=== PATIENT | female | born 1950 | race Caucasian/White ===

== ENCOUNTER → 2017-08-07 13:28 | Outpatient (CLI) | payer MEDICARE, SELFPAY ==
--- NOTE | 2017-08-07 13:32 | CT_ITS ---
STUDY: CTA OF THE ABDOMINAL AORTA AND BILATERAL LOWER EXTREMITIES REASON FOR EXAM: Female, 66 years old. Claudication RADIATION DOSAGE (If Supplied By Facility): CTDIvol = ( 5.68 ) mGy, DLP = ( 1641.87 ) mGycm TECHNIQUE: Axial CT angiography multi-detector data acquisition was obtained from the lower chest to the feet following intravenous administration of 100 ml of Isovue 370 contrast. Axial images and MIP images were reconstructed from the axial data set. Post-processing of the angiographic images was performed, with multiplanar reformation and 3D reconstruction. Individualized dose optimization techniques were used for this CT. TECHNICAL QUALITY: Fair COMPARISON: None. Descriptors of Narrowing: None (0%) Mild (< 50%) Moderate (50-70%) Severe (70-90%) Subtotal/Total Occlusion (90-100%) Non-Evaluable (technically non-diagnostic FINDINGS: Abdominal aorta: There are marked vascular calcifications scattered in the abdominal aorta without dilatation or narrowing. Celiac and superior mesenteric arteries: There is moderate calcified plaque at the origin of the celiac artery with mild narrowing. There is minimal calcified plaque at the origin of the superior mesenteric artery without narrowing. Inferior mesenteric artery: There are marked calcifications at the origin of the inferior mesenteric artery. The vessel is patent. Right renal artery(arteries): There is a single renal artery on the right. There are moderate calcifications at the origin without significant narrowing. Left renal artery(arteries): There is a single renal artery on the left. There are minimal calcifications at the origin without narrowing. Right common iliac artery: There are marked calcifications in the vessel. There is a stent at the origin which is occluded. The vessel reconstitutes distally by the internal iliac artery. Right external iliac artery: Minimally calcified and small but patent. Right internal iliac artery: Moderately calcified but patent. Left common iliac artery: There are marked calcifications at the origin of the vessel and moderate calcifications distally. The vessel is patent. Left external iliac artery: Minimally calcified without narrowing. Left internal iliac artery: Moderately calcified but patent. RIGHT LOWER EXTREMITY Right common femoral artery: Minimally calcified without narrowing. Right profundus femoris: No demonstrated narrowing. Right superficial femoral: Scattered mild calcifications without narrowing. Right popliteal artery: No demonstrated narrowing. Right tibioperoneal trunk: No demonstrated narrowing. Right anterior tibial artery: No demonstrated narrowing. Right posterior tibial artery: No demonstrated narrowing. Right peroneal artery: No demonstrated narrowing. LEFT LOWER EXTREMITY Left common femoral artery: Minimally calcified without narrowing. Left profundus femoris: No demonstrated narrowing. Left superficial femoral: Scattered mild calcifications without narrowing. Left popliteal artery: No demonstrated narrowing. Left tibioperoneal trunk: No demonstrated narrowing. Left anterior tibial artery: No demonstrated narrowing. Left posterior tibial artery: No demonstrated narrowing. Left peroneal artery: No demonstrated narrowing. There is minimal atelectasis in the lung bases. There are mild chronic changes in the lung bases. There is no pleural effusion. Sternotomy wires are present. There appear to be dense calcifications in the mitral valve. The visualized heart is normal in size. The liver, gallbladder, spleen, pancreas and adrenal glands are normal in appearance. There are cysts in both kidneys, with the largest measuring 3 cm off the lower pole of the left kidney. There is diverticulosis of the colon, most pronounced distally. There are no acute bowel abnormalities. There is no ascites or significant lymphadenopathy. There is a small umbilical hernia containing fat. The bladder is decompressed. The uterus is surgically absent. There are no abnormal masses in the adnexal regions. There are moderate degenerative changes scattered in the spine. CT/CT ANGIO ABD&PEL W/O&W/DYE IMPRESSION: There appears to be a stent in the origin of the right common iliac artery which is occluded. The vessel reconstitutes distally by the internal iliac artery. There are marked vascular calcifications throughout the abdominal aorta, branch vessels and pelvic arteries. Other than the occlusion of the right common iliac artery, there is no significant narrowing or occlusion of the remaining vessels in the abdomen or pelvis. There is only mild disease in the superficial femoral arteries without narrowing. The popliteal arteries are patent without disease. There are three-vessel runoffs bilaterally. Electronically Signed: Rhonda Flores MD at 22:30 EDT Tel Direct: [phone], Service support ,
== END ==
PROVIDERS: Family Provider Preventive Medicine Occupational Medicine; PCP Preventive Medicine Occupational Medicine; Visit Provider Surgery Vascular Surgery
DX: I70.213 Atherosclerosis of native arteries of extremities with intermittent claudication, bilateral legs (principal); I77.1 Stricture of artery
CPT/HCPCS: 74174; 75635; Q9967

== ENCOUNTER → 2018-01-31 08:59 | Outpatient (CLI) | payer MEDICARE, OTHER, SELFPAY ==
--- NOTE | 2018-01-31 09:07 | AAVD_ITS ---
Reason For Study: Aortic atheroclerosis Aorta Measurements Aorta Doppler Measurements Proximal aorta measures1.58 x 1.49cm. in cross- Peak systolic flow velocities within the proximal sectional axis. aorta measure 99.4 cm/sec. Proximal aorta measures1.58cm. in longitudinal Peak systolic flow velocities within the mid axis. aorta measure 130 cm/sec. Mid aorta measures1.21 x 1.26cm. in cross- Peak systolic flow velocities within the distal sectional axis. aorta measure 126 cm/sec. Mid aorta measures1.21cm. in longitudinal axis. Distal aorta measures1.36 x 1.31cm. in cross- sectional axis. Distal aorta measures1.31cm. in longitudinal axis. Procedure Aorta IVC Iliac vasculature or bypass grafts [id number]. Rt and Lt Iliac arteries not visualized due to patient body habitus and bowel gas. Exam performed in department. Interpretation Summary 1. No aorta stenosis or aneurysm. 2. Iliac arteries unable to be visualized. Ordering Physician: Scooter Mckenna Referring Physician: MD Paulie Hernandez Performed By: Ines Mayorga RVT and Student
--- NOTE | 2018-01-31 09:13 | ADUL_ITS ---
Reason For Study: Atherosclerosis Left Velocities Ext Iliac Artery, dist = 217 cm./sec. Common Femoral Artery, mid = 185 cm./sec. Supf. Femoral Artery, prox = 184 cm./sec. Supf. Femoral Artery, mid = 99.2 cm./sec. Supf. Femoral Artery, dist = 60.4 cm./sec. Profunda Femoral Artery = 187 cm./sec. Popliteal Artery, proximal, = 70.4 cm./sec. Popliteal Artery, mid = 73.3 cm./sec. Popliteal Artery, distal = 72.7 cm./sec. Post. Tibial Artery, prox = 80.3 cm./sec. Post Tibial Artery, mid = 79.7 cm./sec. Post Tibial Artery, dist. = 82.1. cm./sec. Peroneal Artery, prox = 40 cm./sec. Peroneal Artery, mid = 45.9 cm./sec. Peroneal Artery,dist. = 41.4 cm./sec. Ant.Tibial Artery, prox = 123 cm./sec. Ant Tibial Artery, mid = 56.9 cm./sec. Ant. Tibial Artery, distal = 73.3 cm./sec. Procedure Exam performed in department. Interpretation Summary 1. Mils stenosis in proximal SFA and profunda, but triphasic flow maintained throughout. Ordering Physician: Scooter Mckenna Referring Physician: MD Paulie Hernandez Performed By: Ines Mayorga RVT and Student
--- NOTE | 2018-02-06 11:58 | LEAS ---
Arterial Study - Arterial Study Arterial Study: Date of scan 01/31/[address] Mckenna Interpretation: Right lower extremity with triphasic flow noted at the ankle with an CLARENCE 0.71 of the PT 0.6 for the DP. Digit brachial index 0.47. Left lower extremity with triphasic flow noted at the ankle on duplex with an CLARENCE 0.82 the PT 0.81 in the DP. Digit brachial index 0.25. Impression: 1. Mild arterial occlusive disease in the right leg with triphasic flow CLARENCE 0.71 2. Left lower extremity mild arterial occlusive disease with an CLARENCE 0.82 and triphasic flow. Bilateral small vessel disease with digit brachial index 0.47 and 0.25
== END ==
PROVIDERS: Family Provider Preventive Medicine Occupational Medicine; PCP Preventive Medicine Occupational Medicine; Referring Provider Surgery Vascular Surgery; Visit Provider Surgery Vascular Surgery
DX: I70.0 Atherosclerosis of aorta (principal); I77.1 Stricture of artery; I70.213 Atherosclerosis of native arteries of extremities with intermittent claudication, bilateral legs
CPT/HCPCS: 93922; 93926; 93978

== ENCOUNTER → 2018-05-17 12:06 | Outpatient (CLI) | payer MEDICARE, OTHER, SELFPAY ==
[2018-05-17 12:45] LABS: Hematocrit 34.2 % (37-47); Hemoglobin 10.4 g/dl (12.0-15.0); Mean Corp Hgb Conc 30.4 g/gl (32-36); Mean Corpuscular Hgb 26.1 pg (27.0-32.0); Mean Corpuscular Volume 85.9 fL (81-99); Platelet Count 191 K/mm3 (150-450); RBC Distribution Width CV 15.9 % (11.6-14.6); RBC Distribution Width SD 50.4 fl (35.1-43.9); Red Blood Count 3.98 M/mm3 (4.2-5.4); Scan Indicated on CBC? Y/N NO; White Blood Count 5.2 K/mm3 (4.4-11.0)
[2018-05-17 13:17] LABS: BNP,B-Type NATRIURETIC PEPTIDE 100.5 pg/mL (0-100)
[2018-05-17 13:18] LABS: Anion Gap 11 (5-15); BUN 71 mg/dL (7-18); Chloride 100 mmol/L (98-107); Creatinine, Serum 1.97 mg/dL (0.55-1.02); EST Glomerular Filtration Rate 27 mL/min (>60); Est Glom Filt Rate - Afr Amer 32 mL/min (>60); Glucose 117 mg/dL (74-106); Potassium 4.5 mmol/L (3.5-5.1); Sodium Level 139 mmol/L (136-145); Thyroid Stim Hormone (TSH) 5.28 uIU/mL (0.358-3.74)
== END ==
PROVIDERS: Family Provider Preventive Medicine Occupational Medicine; PCP Preventive Medicine Occupational Medicine
DX: R53.82 Chronic fatigue, unspecified (principal); Z95.3 Presence of xenogenic heart valve; I51.9 Heart disease, unspecified; R06.00 Dyspnea, unspecified
CPT/HCPCS: 36415; 80048; 83880; 84443; 85027

== ENCOUNTER → 2018-05-31 12:07 | Outpatient (CLI) | payer MEDICARE, OTHER, SELFPAY ==
[2018-05-31 13:12] LABS: EST Glomerular Filtration Rate 30 mL/min (>60); Est Glom Filt Rate - Afr Amer 36 mL/min (>60)
== END ==
PROVIDERS: Family Provider Preventive Medicine Occupational Medicine; PCP Preventive Medicine Occupational Medicine; Referring Provider Surgery Vascular Surgery; Visit Provider Surgery Vascular Surgery
DX: I70.213 Atherosclerosis of native arteries of extremities with intermittent claudication, bilateral legs (principal); I77.1 Stricture of artery
CPT/HCPCS: 36415; 82565

== ENCOUNTER 2018-06-26 08:56 | Day surgery (SDC) | payer MEDICARE, OTHER, SELFPAY ==
[2018-06-25 06:53] VITALS: BMI 40.8
[2018-06-26 09:24] LABS: Hematocrit 36.7 % (37-47); Hemoglobin 11.3 g/dl (12.0-15.0); Mean Corp Hgb Conc 30.8 g/gl (32-36); Mean Corpuscular Hgb 26.8 pg (27.0-32.0); Mean Corpuscular Volume 87.2 fL (81-99); Mean Platelet Vol. 10.4 fl (6.2-12.0); Platelet Count 206 K/mm3 (150-450); RBC Distribution Width CV 16.3 % (11.6-14.6); RBC Distribution Width SD 51.8 fl (35.1-43.9); Red Blood Count 4.21 M/mm3 (4.2-5.4); White Blood Count 5.4 K/mm3 (4.4-11.0)
[2018-06-26 09:25] LABS: Scan Indicated on CBC? Y/N NO
[2018-06-26 09:28] LABS: Albumin, Serum 3.6 g/dL (3.2-5.0); BUN 39 mg/dL (7-18); BUN/Creat Ratio 27.7 RATIO (10-20); Calcium,Total 8.7 mg/dL (8.5-10.1); Chloride 106 mmol/L (98-107); Creatinine, Serum 1.41 mg/dL (0.55-1.02); EST Glomerular Filtration Rate 39 mL/min (>60); Est Glom Filt Rate - Afr Amer 48 mL/min (>60); Estimated Creatinine Clearance 32.52 ml/min; Glucose 139 mg/dL (74-106); Phosphorus 3.6 mg/dL (2.5-4.9); Sodium Level 141 mmol/L (136-145)
--- NOTE | 2018-06-26 11:19 | OP.PCM_ITS ---
Report of Operation Date of Procedure: 06/26/18 Pre-Operative Diagnosis: PAD Post-Operative Diagnosis: The same Surgery/Procedure Performed:: 1. Ultrasound-guided access retrograde left brachial artery. 2. Aortogram with bilateral iliofemoral angiogram through the popliteal artery. 3. Balloon angioplasty the right common through proximal external iliac artery with a 7 x 4 drug-coated balloon. Type of Anesthesia:: Sedation,Conscious Description of Procedure: Patient brought to the operating room. Underwent the appropriate timeout consent. Underwent sedation. Was prepped and draped in a sterile fashion. We did ultrasound-guided access retrograde in the left brachial artery. We put in a 5 Turkish sheath. We gave 5000 units of heparin. We got the Glidewire and a Kumpe catheter down to the thoracic aorta to the infrarenal aorta. We did an aortogram with bilateral iliofemoral imaging. Showed some stenosis into the right iliac artery. We got the glide wire and catheter down to the left external iliac artery and imaged from there showing the rest of the left external iliac common femoral, profunda, SFA and then imaging through the popliteal is widely patent with no stenosis. We then pulled the catheter and wire back and got into the right iliac stent. Showed stenosis in the proximal right external iliac artery. Below this the rest of the external iliac, common femoral, profunda, SFA, popliteal or widely patent with no significant stenosis. We then brought in a 7 x 4 drug-coated balloon and balloon through this area for over 2-1/2 minutes. We then re-brought the catheter completion was much improved there is better flow through this and down through the leg. There was some stenosis in with tortuous internal iliac artery that we left intact. The left internal iliac artery appeared to be intact with adequate flow. This does not appear to be the main source of her symptoms. It is probably more neurogenic in nature. We then removed out the wire and sheath and gave 25 of protamine. We held pressure with good hemostasis. She is brought to recovery stable condition. Sedation: This 67-year-old female underwent moderate sedation given by Dr. Scooter Mckenna. She was monitored with EKG blood pressure and pulse ox. See the EMR for the complete record. She was monitored for over the 30 minutes of the procedure.
== END 2018-06-26 14:12 | disposition home or self-care (01) ==
LOC: CLSP 08:57
PROVIDERS: Family Provider Preventive Medicine Occupational Medicine; PCP Preventive Medicine Occupational Medicine; Referring Provider Surgery Vascular Surgery; Visit Provider Surgery Vascular Surgery
DX: I77.1 Stricture of artery (principal); I73.9 Peripheral vascular disease, unspecified; E11.9 Type 2 diabetes mellitus without complications; I11.9 Hypertensive heart disease without heart failure; I10 Essential (primary) hypertension; E78.00 Pure hypercholesterolemia, unspecified; G47.33 Obstructive sleep apnea (adult) (pediatric); M19.90 Unspecified osteoarthritis, unspecified site; Z79.82 Long term (current) use of aspirin; Z79.899 Other long term (current) drug therapy; Z87.891 Personal history of nicotine dependence; Z95.1 Presence of aortocoronary bypass graft
CPT/HCPCS: 36200; 36245; 36246; 36415; 37220; 75625; 75716; 76937; 80069; 85027; 99152; 99153; C2623; J7040; Q9967; C1725; C1769

== ENCOUNTER → 2019-03-31 12:52 | Outpatient (CLI) | payer MEDICARE, OTHER, SELFPAY ==
[2018-06-25 06:53] VITALS: BMI 40.8
[2019-03-31 15:44] LABS: Hematocrit 39.2 % (37-47); Hemoglobin 12.2 g/dL (12.0-15.0); Mean Corp Hgb Conc 31.1 g/dL (32-36); Mean Corpuscular Volume 86.7 fL (81-99); Mean Platelet Vol. 10.5 fl (6.2-12.0); Platelet Count 215 K/mm3 (150-450); RBC Distribution Width CV 15.5 % (11.6-14.6); RBC Distribution Width SD 49.1 fl (35.1-43.9); Red Blood Count 4.52 M/mm3 (4.2-5.4); White Blood Count 6.5 K/mm3 (4.4-11.0)
[2019-03-31 16:11] LABS: Anion Gap 3 (5-15); BUN 39 mg/dL (7-18); Calcium,Total 8.8 mg/dL (8.5-10.1); Chloride 103 mmol/L (98-107); Creatinine, Serum 1.22 mg/dL (0.55-1.02); EST Glomerular Filtration Rate 46 mL/min (>60); Est Glom Filt Rate - Afr Amer 56 mL/min (>60); Glucose 128 mg/dL (74-106); Potassium 4.3 mmol/L (3.5-5.1); Sodium Level 137 mmol/L (136-145); Thyroid Stim Hormone (TSH) 4.45 uIU/mL (0.358-3.74)
== END ==
PROVIDERS: Family Provider Preventive Medicine Occupational Medicine; PCP Preventive Medicine Occupational Medicine
DX: R06.09 Other forms of dyspnea (principal); Z95.2 Presence of prosthetic heart valve
CPT/HCPCS: 36415; 80048; 84443; 85027

== ENCOUNTER → 2020-11-12 16:26 | Outpatient (CLI) | payer MEDICARE, OTHER, SELFPAY ==
[2018-06-25 06:53] VITALS: BMI 40.8
--- NOTE | 2020-11-12 17:30 | MRI_ITS ---
HISTORY: neurogenic claudication -- DDD EXAMINATION: MR Spine Lumbar W/O Contrast TECHNIQUE: Multiplanar and multisequence MR images of the lumbar spine. IV Contrast dosage and agent: None. COMPARISON: None FINDINGS: VERTEBRAE: No acute fracture or pathologic marrow replacement. Discogenic endplate changes at L2-3 and L3-4. Surgical changes from lumbar fusion and posterior hardware at L4-5 and decompression of the lumbar canal at L3-4 and L4-5. 5 mm retrolisthesis of L3 on L4 and L2 on L3. No expansile or destructive lesion. CORD: Normal visualized portions of the spinal cord and cauda equina, with the tip of the conus medullaris at the L1 level. No intradural or intramedullary soft tissue mass or epidural fluid collection. SOFT TISSUES: Unremarkable. L1/L2: 4 mm central disc protrusion without significant central or foraminal stenosis. L2/L3: No disc bulge, central canal stenosis, or neural foraminal stenosis. L3/L4: Right foraminal stenosis due to posterior element hypertrophy and circumferential annular bulge. L4/L5: No disc bulge, central canal stenosis, or neural foraminal stenosis. L5/S1: No disc bulge, central canal stenosis, or neural foraminal stenosis. MRI/Spine Lumbar (Routine) IMPRESSION: Postsurgical changes from L3-4 through L4-5 with posterior fusion hardware at L4-5. 4 mm central disc protrusion at L1-2. Right foraminal stenosis at L3-4 due to circumferential annular bulge and posterior element hypertrophy. at 2222 Reported and signed by: Red Lobato MD Electronically Signed: Red Lobato MD at 22:20 EDT Tel , Service support ,
[2020-11-12 18:08] LABS: BUN 35 mg/dL (7-18); Creatinine, Serum 1.35 mg/dL (0.55-1.02); EST Glomerular Filtration Rate 41 mL/min (>60); Est Glom Filt Rate - Afr Amer 50 mL/min (>60)
== END ==
PROVIDERS: PCP Preventive Medicine Occupational Medicine; Visit Provider Preventive Medicine Occupational Medicine
DX: M48.062 Spinal stenosis, lumbar region with neurogenic claudication (principal); I70.213 Atherosclerosis of native arteries of extremities with intermittent claudication, bilateral legs; E78.00 Pure hypercholesterolemia, unspecified; I10 Essential (primary) hypertension; E11.9 Type 2 diabetes mellitus without complications; I65.23 Occlusion and stenosis of bilateral carotid arteries; I77.1 Stricture of artery
CPT/HCPCS: 36415; 72148; 82565; 84520

== ENCOUNTER → 2020-11-17 12:56 | Outpatient (CLI) | payer MEDICARE, OTHER, SELFPAY ==
[2018-06-25 06:53] VITALS: BMI 40.8
--- NOTE | 2020-11-17 13:02 | CDU_ITS ---
Version 2 Reason For Study: Carotid stenosis Rt. Velocities/BP Lt. Velocities/BP Prox CCA 66.9/10.8 cm/sec. Prox CCA 141.1/18.3 cm/sec. Mid CCA 54.2/9.9 cm/sec. Mid CCA 131.2/22.4 cm/sec. Dist CCA 51.6/13.8 cm/sec. Dist CCA 157.1/25 cm/sec. Prox ICA 345.9/41.1 cm/sec. Prox ICA 143.7/15.8 cm/sec. Mid ICA 81.6/17.6 cm/sec. Mid ICA 97.8/15.5 cm/sec. Dist ICA 84.3/22.9 cm/sec. Dist ICA 91.7/20.4 cm/sec. Rt. ICA/CCA = 6.38. Lt. ICA/CCA = 1.10. Prox ECA 362.6/67.2 cm/sec. Prox ECA 190.8/6.9 cm/sec. Rt. Vert. 59/9.5 cm/sec. Lt. Vert. 57.3/9.1 cm/sec. Right Extracranial There is heterogeneous, irregular atherosclerotic plaque noted in the right common carotid artery. There is heterogeneous, irregular atherosclerotic plaque noted in the right internal carotid artery. The atherosclerotic plaque causes acoustic shadowing. There is heterogeneous, irregular atherosclerotic plaque noted in the right external carotid artery. Antegrade flow is noted in the right vertebral artery. Left Extracranial There is heterogeneous, irregular atherosclerotic plaque noted in the left common carotid artery. There is heterogeneous, irregular atherosclerotic plaque noted in the left internal carotid artery. There is heterogeneous, irregular atherosclerotic plaque noted in the left external carotid artery. Antegrade flow is noted in the left vertebral artery. Procedure Carotid Duplex [id number]. This is a Carotid Duplex examination using B-mode, color flow and specral Doppler. Message left on MA's voicemail. The study was technically difficult. Exam performed in department. VL/Carotid Duplex Ultrasound Interpretation Summary Moderate (50-69%) stenosis right extracranial internal carotid. Moderate (50-69 %) stenosis left extracranial internal carotid. Flow within the vertebral arteries is antegrade bilaterally. Ordering Physician: Scooter Mckenna Referring Physician: Paulie Hernandez Performed By: Claire Lam RVT and Student
--- NOTE | 2020-11-17 13:02 | ART_ITS ---
Reason For Study: Atherosclerosis Procedure A bilateral lower extremity continuous wave Doppler with analog waveform analysis and ankle brachial indexes. Left Segmental Pressures Left brachial= 194mmHg. Left posterior tibial artery = 158mmHg. Left dorsalis pedis artery = 169mmHg. Left digit = 99 mmHg. The left dorsalis pedis waveforms are triphasic. The left posterior tibial artery waveforms are triphasic. Right Segmental Pressures Right brachial= 186mmHg. Right posterior tibial artery = 140mmHg. Right dorsalis pedis artery = 136mmHg. Right digit = 107 mmHg. The right dorsalis pedis waveforms are triphasic. The right posterior tibial artery waveforms are triphasic. Indices The right ankle brachial index by the dorsalis pedis is 0.70. The right ankle brachial index by the posterior tibial artery is 0.72. The right digital-brachial index is 0.55. The left ankle brachial index by the dorsalis pedis is 0.87. The left ankle brachial index by the posterior tibial artery is 0.81. The left digital-brachial index is 0.51. VL/Ankle Brachial Index Interpretation Summary Bilateral lower extremities with triphasic flow noted with mild occlusive disea se with an CLARENCE was 0.72 and 0.87. Ordering Physician: Scooter Mckenna Referring Physician: Paulie Hernandez Performed By: Claire Lam RVT and Student
--- NOTE | 2020-11-17 14:10 | CT_ITS ---
STUDY: CTA OF THE ABDOMINAL AORTA AND BILATERAL LOWER EXTREMITIES REASON FOR EXAM: Female, 70 years old. ILIAC ARTERY STENOSIS RADIATION DOSAGE (If Supplied By Facility): CTDIvol = ( 9.98 ) mGy, DLP = ( 1774.42 ) mGycm TECHNIQUE: Axial CT angiography multi-detector data acquisition was obtained from the lung bases to the feet following intravenous administration of IV 100mL Isovue-370. Axial images and MIP images were reconstructed from the axial data set. Post-processing of the angiographic images was performed, with multiplanar reformation and 3D reconstruction. Individualized dose optimization techniques were used for this CT. TECHNICAL QUALITY: Good COMPARISON: None. Descriptors of Narrowing: None (0%) Mild (< 50%) Moderate (50-70%) Severe (70-90%) Subtotal/Total Occlusion (90-100%) Non-Evaluable (technically non-diagnostic FINDINGS: Abdominal aorta: Diffusely calcified with a maximum luminal diameter at the infrarenal segment measuring 7 mm. There is stenosis at the bifurcation measuring 7 mm in luminal diameter. Celiac and superior mesenteric arteries: Atherosclerotic calcification with mild to moderate stenosis. Inferior mesenteric artery: No demonstrated narrowing. Right renal artery(arteries): Mild calcifications with mild luminal narrowing at the origin. Left renal artery(arteries): Mild calcifications with mild narrowing at the origin. Right common iliac artery: Diffusely calcified with significant stenosis measuring 2 mm in luminal diameter. Right external iliac artery: Mildly calcified with mild luminal narrowing. Right internal iliac artery: Mildly calcified with mild luminal narrowing. Left common iliac artery: Diffusely calcified and proximal stenosis with luminal diameter measuring 6 mm Left external iliac artery: Mildly calcified with no hemodynamically significant narrowing. Left internal iliac artery: No demonstrated narrowing. RIGHT LOWER EXTREMITY Right common femoral artery: Mildly calcified with no hemodynamically significant narrowing. Right profundus femoris: No demonstrated narrowing. Right superficial femoral: Mildly calcified with mild distal luminal narrowing. Right popliteal artery: No demonstrated narrowing. Right tibioperoneal trunk: No demonstrated narrowing. Right anterior tibial artery: No demonstrated narrowing. Right posterior tibial artery: No demonstrated narrowing. Right peroneal artery: No demonstrated narrowing. LEFT LOWER EXTREMITY Left common femoral artery: Mildly calcified with mild luminal narrowing. Left profundus femoris: No demonstrated narrowing. Left superficial femoral: Mildly calcified with mild distal lumen of narrowing. Left popliteal artery: No demonstrated narrowing. Left tibioperoneal trunk: No demonstrated narrowing. Left anterior tibial artery: No demonstrated narrowing. Left posterior tibial artery: No demonstrated narrowing. Left peroneal artery: No demonstrated narrowing. CT/CTA Abd w/Runoff W/WO Contrast IMPRESSION: Stenosis of the distal abdominal aorta and iliac arteries as noted. Electronically Signed: Farhan Rollins DO at 16:18 EDT Tel [phone], Service support ,
== END ==
PROVIDERS: PCP Preventive Medicine Occupational Medicine; Referring Provider Surgery Vascular Surgery; Visit Provider Surgery Vascular Surgery
DX: I70.213 Atherosclerosis of native arteries of extremities with intermittent claudication, bilateral legs (principal); I77.1 Stricture of artery; I65.23 Occlusion and stenosis of bilateral carotid arteries
CPT/HCPCS: 75635; 93880; 93922; Q9967

== ENCOUNTER 2021-01-12 06:46 | Day surgery (SDC) | payer MEDICARE, OTHER, SELFPAY ==
[2021-01-11 07:57] VITALS: BMI 44.9
[2021-01-12 06:59] LABS: Hematocrit 43.6 % (37-47); Mean Corp Hgb Conc 32.1 g/dL (32-36); Mean Corpuscular Volume 90.3 fL (81-99); Mean Platelet Vol. 10.1 fl (6.2-12.0); Platelet Count 217 K/mm3 (150-450); RBC Distribution Width CV 13.8 % (11.6-14.6); RBC Distribution Width SD 45.8 fl (35.1-43.9); Red Blood Count 4.83 M/mm3 (4.2-5.4); White Blood Count 10.4 K/mm3 (4.4-11.0)
[2021-01-12 07:14] LABS: Albumin, Serum 3.5 g/dL (3.2-5.0); BUN 36 mg/dL (7-18); BUN/Creat Ratio 21.7 RATIO (10-20); Calcium,Total 10.4 mg/dL (8.5-10.1); Chloride 97 mmol/L (98-107); Creatinine, Serum 1.66 mg/dL (0.55-1.02); EST Glomerular Filtration Rate 32 mL/min (>60); Est Glom Filt Rate - Afr Amer 39 mL/min (>60); Estimated Creatinine Clearance 26.45 ml/min; Glucose 159 mg/dL (74-106); Phosphorus 4.6 mg/dL (2.5-4.9); Potassium 3.9 mmol/L (3.5-5.1); Sodium Level 138 mmol/L (136-145)
--- NOTE | 2021-01-12 08:13 | OP.PCM_ITS ---
Problems Associated Problem List Diagnoses (1) PAD (peripheral artery disease): Report of Operation Date of Procedure: 01/12/21 Pre-Operative Diagnosis: PAD with claudication Post-Operative Diagnosis: Same with right iliac stent stenosis Surgery/Procedure Performed:: 1. Ultrasound-guided access retrograde left brachial artery. 2. Aortogram with bilateral iliofemoral angiogram. 3. Balloon angioplasty of the right iliac stent through the external iliac artery into the common femoral artery with a 7 x 200 balloon. Surgeon: Scooter Mckenna Type of Anesthesia: IV Sedation Description of Procedure: Patient brought to the [employer] Set Up Operator. Underwent appropriate timeout consent. Underwent sedation. Prepped and draped in a sterile fashion. We did ultrasound access retrograde left brachial artery. Put a Glidewire and then 5 German sheath. Get 5000 units of heparin. Got the wire down the descending thoracic aorta to the infrarenal aorta. Switched out to a stiff Glidewire and a long 6 German sheath. Did an aortogram with bilateral iliofemoral angiogram. This showed the left iliacs all widely patent. Common femoral was patent. We then put the sheath down through the iliac and imaged from there which showed the rest of the common femoral, the profunda, the femoral into the mid popliteal was all widely patent with good flow. We then removed the catheter and sheath back and then imaged on the right side that had already showed the moderate to severe in-stent stenosis on the right. Mild stenosis in internal echo artery. Proximal external echo artery moderate stenosis. And some irregularity at the junction from the external leg artery to the common femoral artery. We did a wire across this and balloon the entire iliac into the mid common femoral with a 7 x 200 balloon. We did this for over 2-1/2 minutes. Completion was improved with much better flow through this entire area. Much improved filling throughout the internal iliac and its branches. We removed out the sheath put a shorter sheath. We reversed with 40 of protamine. The sheath was then removed pressure was held with good hemostasis. She is brought to recovery stable condition. Sedation: This 70-year-old female underwent moderate sedation given by Dr. Scooter Mckenna. She was moderate EKG blood pressure and pulse ox for over the 30 minutes of the procedure. See the EMR for the complete record.
== END 2021-01-12 13:00 | disposition home or self-care (01) ==
LOC: CLSP 06:48
PROVIDERS: PCP Preventive Medicine Occupational Medicine; Referring Provider Surgery Vascular Surgery; Visit Provider Surgery Vascular Surgery
DX: T82.856A Stenosis of peripheral vascular stent, initial encounter (principal); I65.23 Occlusion and stenosis of bilateral carotid arteries; I10 Essential (primary) hypertension; E78.00 Pure hypercholesterolemia, unspecified; E11.9 Type 2 diabetes mellitus without complications; I70.213 Atherosclerosis of native arteries of extremities with intermittent claudication, bilateral legs; Z79.82 Long term (current) use of aspirin; Z79.02 Long term (current) use of antithrombotics/antiplatelets; Z79.899 Other long term (current) drug therapy; Z87.891 Personal history of nicotine dependence
CPT/HCPCS: 36200; 36245; 36246; 36415; 37220; 75625; 75716; 76937; 80069; 85027; 99152; 99153; J7040; Q9967; C1725; C1769; C1894

== ENCOUNTER → 2021-03-24 14:38 | Outpatient (CLI) | payer MEDICARE, OTHER, SELFPAY ==
--- NOTE | 2021-03-24 15:04 | RAD_ITS ---
STUDY: XR Chest 2 Views 03/24/2021 3:12 PM REASON FOR EXAM: Female, 70 years old. CHEST PAIN DYSPNEA COMPARISON: None TECHNIQUE: XR Chest 2 Views FINDINGS: There is no demonstrated pleural abnormality. There are multiple median sternotomy wires. Enlarged heart size. Normal mediastinum. Normal amish. Prominent appearing increased interstitial lung markings. Normal visualized pulmonary arteries. There is atherosclerotic calcification of the aortic arch with tortuosity. There are diffuse degenerative changes of the visualized thoracic spine. There is degenerative osteoarthritis of the bilateral shoulders. There is no demonstrated abnormality of the visualized soft tissue structures of the upper abdomen. RAD/Chest PA and Lateral IMPRESSION: There are no acute findings. Electronically Signed: Jovanni Pichardo MD at 15:39 EST , Service support ,
[2021-03-24 16:09] LABS: Anion Gap 9 (5-15); BUN 36 mg/dL (7-18); BUN/Creat Ratio 22.9 RATIO (10-20); Calcium,Total 9.8 mg/dL (8.5-10.1); Chloride 100 mmol/L (98-107); Cholesterol 124 mg/dL (200); Creatinine, Serum 1.57 mg/dL (0.55-1.02); EST Glomerular Filtration Rate 34 mL/min (>60); Est Glom Filt Rate - Afr Amer 42 mL/min (>60); Glucose 168 mg/dL (74-106); High Density Lipoprotein 70 mg/dL; Potassium 4.2 mmol/L (3.5-5.1); Sodium Level 139 mmol/L (136-145); Triglycerides 135 mg/dL; Very Low Density Lipoprotein 27 mg/dL (5-40)
== END ==
PROVIDERS: PCP Preventive Medicine Occupational Medicine; Referring Provider Internal Medicine Pulmonary Disease; Visit Provider Nurse Practitioner Family
DX: I25.10 Atherosclerotic heart disease of native coronary artery without angina pectoris (principal); R06.00 Dyspnea, unspecified; I10 Essential (primary) hypertension; I73.9 Peripheral vascular disease, unspecified; Z95.2 Presence of prosthetic heart valve
CPT/HCPCS: 36415; 71046; 80048; 80061

== ENCOUNTER → 2021-06-29 | Outpatient (REF) | payer SELFPAY ==
[2021-06-29 08:52] LABS: Absolute Lymphocyte Count 1.43 X10^3/uL (0.83-4.51); Absolute Neutrophil Count 3.5 X10^3/uL (2.0-7.7); Basophil# 0.02 X10^3/uL; Basophil% 0.3 % (0-1); Eosinophil# 0.12 X10^3/uL; Hematocrit 28.8 % (37-47); Hemoglobin 9.4 g/dL (12.0-15.0); Lymphocyte # 1.43 X10^3/ul (0.83-4.51); Mean Corp Hgb Conc 32.6 g/dL (32-36); Mean Corpuscular Hgb 30.2 pg (27.0-32.0); Mean Corpuscular Volume 92.6 fL (81-99); Mean Platelet Vol. 10.2 fl (6.2-12.0); Monocyte# 0.83 X10^3/uL; Monocyte% 13.9 % (0-10); NRBC Flagged by Analyzer 0 % (0-5); Neutrophil # 3.53 X10^3/uL (2.7-7.7); Neutrophil % 59.1 % (47-70); Platelet Count 229 K/mm3 (150-450); RBC Distribution Width CV 13.7 % (11.6-14.6); RBC Distribution Width SD 46.5 fl (35.1-43.9); Red Blood Count 3.11 M/mm3 (4.2-5.4)
[2021-06-29 09:09] LABS: Vitamin B12 333 pg/mL (211-911)
[2021-06-29 09:17] LABS: ALB/GLOB Ratio 0.6 RATIO (0.9-2.4); AST(SGOT) 29 U/L (15-37); Alanine Aminotransfer ALT/SGPT 26 U/L (13-56); Albumin, Serum 2.6 g/dL (3.2-5.0); Alkaline Phosphatase 75 U/L (45-117); Anion Gap 4 (5-15); BUN 26 mg/dL (7-18); BUN/Creat Ratio 20.8 RATIO (10-20); Calcium,Total 8.8 mg/dL (8.5-10.1); Chloride 98 mmol/L (98-107); Cholesterol 154 mg/dL (200); Creatinine, Serum 1.25 mg/dL (0.55-1.02); EST Glomerular Filtration Rate 45 mL/min (>60); Est Glom Filt Rate - Afr Amer 54 mL/min (>60); Glucose 174 mg/dL (74-106); High Density Lipoprotein 56 mg/dL; Potassium 3.9 mmol/L (3.5-5.1); Protein, Total 6.6 g/dL (6.4-8.2); Sodium Level 138 mmol/L (136-145); Thyroid Stim Hormone (TSH) 4.11 uIU/mL (0.358-3.74); Triglycerides 147 mg/dL; Very Low Density Lipoprotein 29 mg/dL (5-40)
[2021-06-29 09:28] LABS: Hemoglobin A1c 6.5 % (3.8-5.6)
== END | disposition home or self-care (01) ==
LOC: OLS.SW1020 05:00
PROVIDERS: PCP Preventive Medicine Occupational Medicine; Visit Provider Internal Medicine
DX: I10 Essential (primary) hypertension (principal); J44.9 Chronic obstructive pulmonary disease, unspecified
CPT/HCPCS: 36415; 80053; 80061; 82607; 83036; 84443; 85025

== ENCOUNTER 2021-07-25 14:53 | Outpatient (CLI) | payer MEDICARE, OTHER, SELFPAY ==
--- NOTE | 2021-07-25 15:11 | CT_ITS ---
STUDY: LOW DOSE CT LUNG CANCER SCREENING REASON FOR EXAM: Female, 70 years old. NICOTINE DEPENDENCE. Patient smoked 1 pack per day for 40 years. RADIATION DOSAGE (If Supplied By Facility): CTDIvol = ( 3.18 ) mGy, DLP = ( 111.59 ) mGycm TECHNIQUE: No contrast was administered. Low dose technique was utilized (average mAS-38 and kVp 120). 1.25 mm axial source images with a slice interval of 1.25-mm were reconstructed in lung windows. 2.5 mm axial source images with a slice interval of 2.5-mm were reconstructed in lung windows. 5.0 mm axial source images with a slice interval of 5.0-mm were reconstructed in soft tissue windows. Nodule measured using lung windows on PACS and/or independent workstation with automated measurement of minimum and maximum diameter. Nodule measurement reported as average diameter rounded to the nearest whole number. Growth is defined as an increase ins size of greater than 1.5 mm. COMPARISON: None. NODULES: No suspicious nodules are seen. Emphysema: Mild degree of emphysematous changes worse in the upper lobes. Endobronchial lesion: None Aorta: Atherosclerotic calcific plaques Coronary arteries: Coronary artery calcification. Heart: Prior CABG. Aortic valve replacement. Calcification of the mitral valve annulus. Pulmonary artery: Unremarkable. Mediastinal nodes: Small mediastinal lymph nodes. Other chest and abdominal findings: CT/Low Dose CT Lung Screening IMPRESSION: Lung-RADS category 2 - Continue annual screening with LDCT in 12 months. IMPORTANT NOTES FOR USE: ACR Lung-RADS Version 1.1 Assessment Categories Release Date: 2018 Category: Coded 0-4 bases on nodule(s) with highest degree of suspicion. Negative screen is defined as categories 1 and 2; a positive screen is defined as categories 3 and 4. Category 3 and 4A nodules that are unchanged on interval CT should be coded as category 2, and individuals returned to screening in 12 months. Category 4X: Category 3 or 4 nodules with additional imaging findings that increase the suspicion of lung cancer, such as spiculation, GGN that doubles in size in 1 year, enlarged lymph notes, etc. Category Modifiers: S (significant finding unrelated to lung cancer) Electronically Signed: Toi Euceda MD at 9:56 EDT ,
== END 2021-07-25 23:59 | disposition home or self-care (01) ==
PROVIDERS: PCP Preventive Medicine Occupational Medicine; Referring Provider Internal Medicine Pulmonary Disease; Visit Provider Internal Medicine Pulmonary Disease
DX: I27.20 Pulmonary hypertension, unspecified (principal); R06.00 Dyspnea, unspecified; Z87.891 Personal history of nicotine dependence
CPT/HCPCS: 36415; 71271; 83880

== ENCOUNTER → 2022-01-12 | Outpatient (CLI) | payer MEDICARE, OTHER, SELFPAY ==
--- NOTE | 2022-01-12 10:53 | BD_ITS ---
STUDY: DUAL ENERGY X-RAY ABSORPTIOMETRY / DXA REASON FOR EXAM: Female, 71 years old. S32.010A. Patient is postmenopausal. TECHNIQUE: Bone Mineral Density (BMD) measurements of left forearm and bilateral hips were obtained. COMPARISON: None. FINDINGS: Left Femur Total: g/cm2 (0.918) / T-score (-0.2) / Z-score (1.5) Left Femoral Neck: g/cm2 (0.744) / T-score (-0.9) / Z-score (1.0) Right Femur Total: g/cm2 (0.918) / T-score (-0.2) / Z-score (1.5) Right Femoral Neck: g/cm2 (0.744) / T-score (-0.9) / Z-score (1.0) Left Forearm: g/cm2 (0.581) / T-score (0.0) / Z-score (2.3) BD/Dexa Bone Density Study IMPRESSION: The patient is considered normal as outlined below according to World Ricardo Organization (WHO) criteria with a low fracture risk. Reference Information: The T-score is the number of standard deviations above or below the standard which is normal for young adults at their peak bone mineral density. The World Health Organization (WHO) interprets the T-scores as follows: Above -1 Normal bone density Between -1 and -2.5 Osteopenia Equal to / or below -2.5 Osteoporosis As a practical clinical guideline, osteopenia may be graded as follows: Mild -1 through -1.5 Moderate -1.6 through -2.0 Severe -2.1 through -2.4 The Z-score is the number of standard deviations above or below age-matched controls. A Z-score of less than -1.5 would be considered abnormal. References: 1. NIH Osteoporosis and Related Bone Diseases www osteo.org 2. International Society for Clinical Densitometry www iscd.org 3. National Osteoporosis Foundation www nof.org Electronically Signed: Toi Euceda MD at 12:07 EDT ,
== END | disposition home or self-care (01) ==
PROVIDERS: PCP Preventive Medicine Occupational Medicine; Visit Provider Orthopaedic Surgery
DX: S32.010A Wedge compression fracture of first lumbar vertebra, initial encounter for closed fracture (principal)
CPT/HCPCS: 77080

== ENCOUNTER 2022-03-20 09:02 | Outpatient (CLI) | payer MEDICARE, OTHER, SELFPAY ==
--- NOTE | 2022-03-20 09:08 | AAVD_ITS ---
Reason For Study: Iliac Artery Stenosis Aorta Measurements Aorta Doppler Measurements Proximal aorta measures2.06 x 2.21cm. in cross- Peak systolic flow velocities within the proximal sectional axis. aorta measure 54.1 cm/sec. Proximal aorta measures2.18cm. in longitudinal Peak systolic flow velocities within the mid aorta axis. measure Unable to obtain waveform due to bowel gas Mid aorta measures1.84 x 2.01cm. in cross- cm/sec. sectional axis. Peak systolic flow velocities within the distal Mid aorta measures1.81cm. in longitudinal axis. aorta measure 99.3 cm/sec. Distal aorta measures1.47 x 1.51cm. in cross- sectional axis. Distal aorta measures1.44cm. in longitudinal axis. Left Iliac Artery Left iliac artery measures 0.92 x 0.99 cm. in the cross-sectional axis. Left iliac artery measures 0.82 cm. in the longitudinal axis. Peak systolic velocity in the left iliac artery measures 178.9 cm/sec. Right Iliac Artery Right iliac artery measures 0.82 x 0.94 cm. in the cross-sectional axis. Right iliac artery measures 0.77 cm. in the longitudinal axis. Peak systolic velocity in the right iliac artery measures 162.7 cm/sec. Procedure Aorta IVC Iliac vasculature or bypass grafts 11502. The exam was of poor technical quality due to bowel gas, body habitus and patient positioning. Exam performed in department. VL/Abd Aortic/IVC Duplex scan Interpretation Summary No evidence aortoiliac stenosis or aneurysm. Ordering Physician: Scooter Mckenna Referring Physician: MD Paulie Hernandez Performed By: Leighton Argueta, DEBBY
--- NOTE | 2022-03-20 09:08 | CDU_ITS ---
Reason For Study: Carotid Stenosis Rt. Velocities/BP Lt. Velocities/BP Subclavian artery 72.7/4.4 cm/sec. Prox CCA 143.3/33.3 cm/sec. Prox CCA 43.1/0.0 cm/sec. Mid CCA 102.2/24.6 cm/sec. Mid CCA 16.9/0.0 cm/sec. Dist CCA 170.1/34.3 cm/sec. Dist CCA 10.9/0.0 cm/sec. Prox ICA 196.0/18.1 cm/sec. Diminshed or drumbeat flow noted Mid ICA 102.2/27.8 cm/sec. throughout CCA. Dist ICA 82.3/23.8 cm/sec. Prox ICA 363.1/64.2 cm/sec. Lt. ICA/CCA = 1.9. Mid ICA 21.5/7.5 cm/sec. Prox ECA 215.4/18.1 cm/sec. Dist ICA 119.3/40.7 cm/sec. Lt. Vert. 52.2/12.6 cm/sec. Rt. ICA/CCA = 21.4. Prox ECA 41.2/11.9 cm/sec. Rt. Vert. 56.9/13.9 cm/sec. Right Extracranial There is heterogeneous, irregular atherosclerotic plaque noted in the right common carotid artery. The atherosclerotic plaque causes acoustic shadowing. There is heterogeneous, irregular atherosclerotic plaque noted in the right internal carotid artery. The atherosclerotic plaque causes acoustic shadowing. There is heterogeneous, irregular atherosclerotic plaque noted in the right external carotid artery. The atherosclerotic plaque causes acoustic shadowing. Antegrade flow is noted in the right vertebral artery. Left Extracranial There is heterogeneous, irregular atherosclerotic plaque noted in the left common carotid artery. The atherosclerotic plaque causes acoustic shadowing. There is heterogeneous, irregular atherosclerotic plaque noted in the left internal carotid artery. The atherosclerotic plaque causes acoustic shadowing. There is heterogeneous, irregular atherosclerotic plaque noted in the left external carotid artery. The atherosclerotic plaque causes acoustic shadowing. Antegrade flow is noted in the left vertebral artery. Procedure Carotid Duplex 46080. This is a Carotid Duplex examination using B-mode, color flow and specral Doppler. The exam was diagnostic. The study was technically difficult. Exam performed in department. VL/Carotid Duplex Ultrasound Interpretation Summary Severe (>70%) stenosis right extracranial internal carotid. Moderate (50-69%) s tenosis left extracranial internal carotid. Flow within the vertebral arteries is antegrade bilaterally. Diminsihed flow into CCA on right noted. Ordering Physician: Scooter Mckenna Referring Physician: MD Paulie Hernandez Performed By: Leighton Argueta RVT
--- NOTE | 2022-03-20 09:08 | ART_ITS ---
Reason For Study: Atherosclerosis Procedure A bilateral lower extremity continuous wave Doppler with analog waveform analysis and ankle brachial indexes. Left Segmental Pressures Left brachial= 197mmHg. Left posterior tibial artery = 200mmHg. Left dorsalis pedis artery = 179mmHg. Left digit = 105 mmHg. The left posterior tibial artery waveforms are triphasic. The left dorsalis pedis waveforms are triphasic. Right Segmental Pressures Right brachial= 198mmHg. Right posterior tibial artery = 183mmHg. Right dorsalis pedis artery = 173mmHg. Right digit = 162 mmHg. The right posterior tibial artery waveforms are biphasic. The right dorsalis pedis waveforms are triphasic. Indices The right ankle brachial index by the posterior tibial artery is 0.92. The right ankle brachial index by the dorsalis pedis is 0.87. The right digital-brachial index is 0.82. The left ankle brachial index by the posterior tibial artery is 1.01. The left ankle brachial index by the dorsalis pedis is 0.90. The left digital-brachial index is 0.53. VL/Ankle Brachial Index Interpretation Summary Bilatera; normal at rest CL[place]ENCE 0.92 and left 1/01 and bilateral triphasic flow. D BI 0.82 and 0.53. Ordering Physician: Scooter Mckenna Referring Physician: MD Paulie Hernandez Performed By: Leighton Argueta RVT
== END 2022-03-20 23:59 | disposition home or self-care (01) ==
LOC: CVS 09:04
PROVIDERS: PCP Preventive Medicine Occupational Medicine; Referring Provider Surgery Vascular Surgery; Visit Provider Surgery Vascular Surgery
DX: Z48.812 Encounter for surgical aftercare following surgery on the circulatory system (principal); I70.209 Unspecified atherosclerosis of native arteries of extremities, unspecified extremity; I77.1 Stricture of artery; I70.213 Atherosclerosis of native arteries of extremities with intermittent claudication, bilateral legs; I65.23 Occlusion and stenosis of bilateral carotid arteries
CPT/HCPCS: 93880; 93922; 93978

== ENCOUNTER → 2022-07-26 | Outpatient (CLI) | payer MEDICARE, OTHER, SELFPAY ==
--- NOTE | 2022-07-26 13:45 | CT_ITS ---
STUDY: LOW DOSE CT LUNG CANCER SCREENING REASON FOR EXAM: Female, 71 years old. Long-term smoking history RADIATION DOSAGE (If Supplied By Facility): CTDIvol = ( 3.18 ) mGy, DLP = ( 104.83 ) mGycm TECHNIQUE: No contrast was administered. Low dose technique was utilized (average mAS-38 and kVp 120). 1.25 mm axial source images with a slice interval of 1.25-mm were reconstructed in lung windows. 2.5 mm axial source images with a slice interval of 2.5-mm were reconstructed in lung windows. 5.0 mm axial source images with a slice interval of 5.0-mm were reconstructed in soft tissue windows. COMPARISON: 07/25/2021 Findings: Lung windows show the lungs to be normally expanded. Chronic interstitial changes noted in both lung monroy without a superimposed acute pulmonary process. Specifically, no organized infiltrate or effusion. No suspicious noncalcified mass or nodule. Limited soft tissue windows show normal-appearing thyroid gland. No suspicious adenopathy. 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 Peripheral calcifications in the thoracic aorta without aneurysm. Limited cuts of the upper abdomen do not show suspicious abnormality. Bony structures show degenerative change CT/Low Dose CT Lung Screening IMPRESSION: Lung-RADS category 2 - Continue annual screening with LDCT in 12 months. IMPORTANT NOTES FOR USE: ACR Lung-RADS Version 1.1 Assessment Categories Release Date: 2018 Category: Coded 0-4 bases on nodule(s) with highest degree of suspicion. Negative screen is defined as categories 1 and 2; a positive screen is defined as categories 3 and 4. Category 3 and 4A nodules that are unchanged on interval CT should be coded as category 2, and individuals returned to screening in 12 months. Category 4X: Category 3 or 4 nodules with additional imaging findings that increase the suspicion of lung cancer, such as spiculation, GGN that doubles in size in 1 year, enlarged lymph notes, etc. Category Modifiers: S (significant finding unrelated to lung cancer) Electronically Signed: Taj Millard MD at 14:11 EDT ,
== END | disposition home or self-care (01) ==
PROVIDERS: PCP Preventive Medicine Occupational Medicine; Referring Provider Internal Medicine Pulmonary Disease; Visit Provider Internal Medicine Pulmonary Disease
DX: Z87.891 Personal history of nicotine dependence (principal)
CPT/HCPCS: 71271

== ENCOUNTER 2023-03-22 09:45 | Inpatient (IN) | payer MEDICARE, OTHER, SELFPAY ==
[2023-03-22] VITALS (22 sets, daily range): BP systolic 94–142; BP diastolic 37–108; PULSE 64–94; RESP 12–27; TEMP 36.2–37.7; O2SAT 72–100; BMI 44.9; BMI 44.6
--- NOTE | 2023-03-22 10:08 | RAD_ITS ---
STUDY: X-RAY CHEST REASON FOR EXAM: Female, 72 years old. Dyspnea TECHNIQUE: Single AP portable view of the chest. COMPARISON: Comparison is made with prior study dated March 24, 2021. FINDINGS: EKG electrodes are seen. Consolidation in the right upper lobe as well as along the lateral aspect of the right middle and right lower lobes. Pneumonitis associated with Covid should be ruled out. There is no demonstrated pleural abnormality. Sternal cerclage wires and vascular clips are present from a prior sternotomy and coronary artery bypass graft procedure (CABG). Normal mediastinum and amish. Normal visualized pulmonary arteries. There is atherosclerotic calcification of the aortic arch with tortuosity. There are diffuse degenerative changes of the visualized thoracic spine. Normal visualized ribs, clavicles, and shoulders. There is no demonstrated abnormality of the visualized soft tissue structures of the upper abdomen. RAD/Chest 1 View (Portable) IMPRESSION: Pneumonitis involving the right hemithorax as described. Pneumonitis associated with Covid should be ruled out. Electronically Signed: Toi Euceda MD at 11:27 [facility] ,
--- NOTE | 2023-03-22 10:08 | CT_ITS ---
STUDY: CT BRAIN WITHOUT CONTRAST REASON FOR EXAM: Female, 72 years old. Trauma RADIATION DOSAGE (If Supplied By Facility): CTDIvol = ( 44.99 ) mGy, DLP = ( 855.03 ) mGycm TECHNIQUE: Transaxial CT imaging of the brain was performed without administration of intravenous contrast material. Individualized dose optimization techniques were used for this CT. COMPARISON: No relevant priors. FINDINGS: Normal soft tissue structures. Normal calvarium. There is mild cerebral atrophy with widening of the extra-axial spaces and ventricular dilatation. There are areas of decreased attenuation within the white matter tracts of the supratentorial brain, consistent with microvascular disease changes. Normal basal ganglia and thalami. Normal brainstem. Normal cerebellum. There is no intracranial hemorrhage. There are no findings of an acute ischemic infarction. Normal visualized paranasal sinuses. CT/Brain/Head without Contrast IMPRESSION: Chronic involutional changes of the brain. Electronically Signed: Toi Euceda MD at 11:21 EST ,
--- NOTE | 2023-03-22 10:08 | CT_ITS ---
STUDY: CT FACIAL BONES WITHOUT CONTRAST REASON FOR EXAM: Female, 72 years old. Trauma RADIATION DOSAGE (If Supplied By Facility): CTDIvol = ( 25.01 ) mGy, DLP = ( 626.65 ) mGycm TECHNIQUE: The patient was scanned in a multi detector CT scanner. Sagittal and coronal images were reconstructed. Individualized dose optimization techniques were used for this CT. COMPARISON: None. FINDINGS: Normal soft tissue structures. Normal orbital edwards and orbital contents. Normal nasal bones and anterior nasal spine. Normal facial bones. There is no demonstrated fracture. Normal visualized paranasal sinuses. CT/Sinus/Facial Bone IMPRESSION: Normal unenhanced CT of the facial bones. Electronically Signed: Toi Euceda MD at 11:22 EST ,
--- NOTE | 2023-03-22 10:15 | EX.ED.DYSGE1 ---
HPI History of Present Illness Chief Complaint: Fall Informant: patient and family Narrative Narrative: 72-year-old female presented to the emergency room with dyspnea weakness. Patient states that she has fallen several times this week and 4 times since yesterday. Her sister who lives next-door to her states that yesterday her son came and got her up into the chair. Today her sister checked on her and she was on the floor in the kitchen. Is unknown how long she has been there. Family and the patient states all the day seem to run together. Patient states for about a week she has had progressively worsening dyspnea and cough. No fevers. No sputum production. She states that she has had a valve replaced and bypass surgery. She states that she is taking Plavix and aspirin. She does not believe she has a history of heart failure. Former smoker. Patient notes that about 4 weeks ago she fell injuring the right mid ribs. That continues to hurt. She does not believe she hurt herself in the fall the past couple days but notes that her right cheek is red and she is not sure why. She denies any difficulty opening or closing her mouth. She denies neck pain. She denies hip pain. [facility] Medical History (Updated 03/22/23 @ 12:[address] Arun Bliss, ) Anemia Anxiety Aortic stenosis Chronic kidney disease, stage III (moderate) COPD (chronic obstructive pulmonary disease) Coronary artery disease Depression Diabetes Fibromyalgia History of transcatheter aortic valve replacement (TAVR) Hypercholesterolemia Hypertension Lumbar degenerative disc disease PAD (peripheral artery disease) Home Medications aspirin 81 mg tablet,delayed release (Adult Low Dose Aspirin) 81 mg PO DAILY HEART HEALTH 06/25/18 [History Last Taken 03/21/23] chlorpheniramine maleate 4 mg tablet (Allergy (chlorpheniramine)) 8 mg PO BID ALLERGIES 06/25/18 [History Last Taken 03/21/23] clopidogrel 75 mg tablet 75 mg PO DAILY BLOOD THINNER 06/25/18 [History Last Taken 03/21/23] coenzyme Q10 100 mg-vitamin E 20 mg-vitamin E mixed 15 mg capsule 2 ea PO BID SUPPLEMENT 06/25/18 [History Last Taken 03/21/23] cyanocobalamin (vitamin B-12) 1,000 mcg tablet 1,000 mcg PO DAILY SUPPLEMENT 06/25/18 [History Last Taken 03/21/23] cyclobenzaprine 10 mg tablet 20 mg PO QHS MUSCLE SPASMS 06/25/18 [History Last Taken 03/21/23] escitalopram oxalate 20 mg tablet 20 mg PO DAILY DEPRESSION 06/25/18 [History Last Taken 03/21/23] meloxicam 15 mg tablet 15 mg PO DAILY ARTHRITIS 06/25/18 [History Last Taken 03/21/23] multivitamin 1 ea PO DAILY HEALTH MAINTENANCE 06/25/18 [History Last Taken 03/21/23] pioglitazone 45 mg tablet 45 mg PO DAILY BLOOD SUGARS 06/25/18 [History Last Taken 03/21/23] tramadol 50 mg tablet 50 - 100 mg PO Q6H PRN BACK PAIN 06/25/18 [History Last Taken 03/21/23] valsartan 320 mg tablet 320 mg PO DAILY HEART 01/11/21 [History Last Taken 03/21/23] bupropion HCl 150 mg 24 hr tablet, extended release 150 mg PO DAILY DEPRESSION 03/22/23 [History Last Taken 03/21/23] carvedilol 12.5 mg tablet 37.5 mg PO BID HEART 03/22/23 [History Last Taken 03/21/23] cholecalciferol (vitamin D3) 25 mcg (1,000 unit) capsule 25 mcg PO DAILY SUPPLEMENT 03/22/23 [History Last Taken 03/21/23] clonazepam 1 mg tablet 1 mg PO BID PRN ANXIETY 03/22/23 [History Last Taken Unknown] docusate sodium 100 mg capsule (Colace) 100 mg PO DAILY STOOL SOFTENER 03/22/23 [History Last Taken 03/21/23] evolocumab 140 mg/mL subcutaneous pen injector (Esperanza Levy) 140 mg subcut Q14D CHOLESTEROL 03/22/23 [History Last Taken 03/10/23] famotidine 20 mg tablet 20 mg PO DAILY ACID REFLUX 03/22/23 [History Last Taken 03/21/23] furosemide 40 mg tablet 40 mg PO DAILY EDEMA 03/22/23 [History Last Taken 03/21/23] magnesium citrate 100 mg tablet 100 mg PO DAILY SUPPLEMENT 03/22/23 [History Last Taken 03/21/23] olive leaf extract 250 mg capsule 250 mg PO BID SUPPLEMENT 03/22/23 [History Last Taken 03/21/23] psyllium husk 0.4 gram capsule (Fiber (psyllium husk)) 0.4 g PO DAILY 03/22/23 [History Last Taken 03/21/23] tiotropium bromide 18 mcg capsule with inhalation device (Spiriva with HandiHaler) 1 cap inhalation DAILY SHORTNESS OF BREATH 03/22/23 [History Last Taken 03/21/23] trazodone 50 mg tablet 50 - 100 mg PO QHS INSOMNIA 03/22/23 [History Last Taken 03/21/23] vitamin K2 45 mcg capsule 45 mcg PO DAILY SUPPLEMENT 03/22/23 [History Last Taken 03/21/23] zinc acetate 50 mg (zinc) capsule 50 mg PO DAILY SUPPLEMENT 03/22/23 [History Last Taken 03/21/23] Allergy/AdvReac Type Severity Reaction Status Date / Time metformin Allergy Unknown Upset Verified 03/22/23 11:46 Stomach acetaminophen [From Tylenol] Allergy MOOD Verified 03/22/23 11:46 CHANGES Ieseowi-Buf-Cdg Reductase Allergy JOINT PAIN Verified 03/22/23 11:46 Inhibitor prednisone AdvReac Mild BODY ACHES Verified 03/22/23 09:59 oxycodone AdvReac Anaphylaxis Verified 03/22/23 11:46 Surgical History (Updated 03/22/23 @ 10:[address] Arun Bliss DO) H/O: hysterectomy History of appendectomy History of lumbar spinal fusion S/P CABG x 1 Social History Smoking Status: Former smoker EXAM Physical Exam Narrative Exam Narrative: Patient has labored breathing with audible rails. Const Vital Signs: 03/22/23 09:46 03/22/23 10:08 03/22/23 10:30 Temperature 97.2 F L 97.6 F L Temperature Source Temporal Temporal Pulse Rate 83 94 Respiratory Rate 26 H 26 H Respiratory Effort Respiratory Pattern Blood Pressure 103/86 H Blood Pressure Mean 91 Pulse Ox 77 94 93 Oxygen Delivery Method Room Air Bi-pap Bi-pap Fraction of Inspired Oxygen (FIO2) 03/22/23 10:09 03/22/23 11:00 03/22/23 11:30 Temperature 97.8 F 97.8 F Temperature Source Temporal Core Pulse Rate 94 81 Respiratory Rate 16 24 H Respiratory Effort Short of Breath Respiratory Pattern Tachypnea Blood Pressure 106/78 113/100 H Blood Pressure Mean 87 104 Pulse Ox 93 93 Oxygen Delivery Method Bi-pap Bi-pap Bi-pap Fraction of Inspired Oxygen (FIO2) 03/22/23 10:02 03/22/23 11:20 03/22/23 12:00 Temperature 98.8 F Temperature Source Core Pulse Rate 87 84 90 Respiratory Rate 27 H 27 H 18 Respiratory Effort Respiratory Pattern Blood Pressure 114/80 Blood Pressure Mean 91 Pulse Ox 93 97 Oxygen Delivery Method Bi-pap Fraction of Inspired Oxygen (FIO2) 50 03/22/23 12:47 03/22/23 12:47 Temperature 98.4 F 98.9 F Temperature Source Core Pulse Rate 74 64 Respiratory Rate 16 14 Respiratory Effort Respiratory Pattern Blood Pressure 99/45 L 99/78 Blood Pressure Mean 63 85 Pulse Ox 98 72 Oxygen Delivery Method Bi-pap Fraction of Inspired Oxygen (FIO2) Positive well nourished, well developed and obese General Appearance ED: well developed Nutritional Appearance: obese HEENT Reports normocephalic, head/scalp atraumatic and moist mucous membranes Eyes PERRL and EOMs intact bilaterally Neck no lymphadenopathy, supple and no JVD Chest Wall Chest Narrative: Tender to palpation in the right mid axillary ribs. No ecchymosis seen. No crepitance. Resp Resp Narrative: Patient with increased work of breathing. Conversational dyspnea. Auscultation: rales diffuse and diminished lung sounds Cardio regular rate and regular rhythm GI normal to inspection, nondistended, normoactive bowel sounds and non-tender Palpation: soft Back/Spine no CVA tenderness and normal ROM Extremity normal to inspection General Extremety ED: Yes edema General Extremity: edema bilateral lower extremity Details: moderate Neuro oriented x3 and CN's II-XII intact bilaterally Neuro Narrative: Tired appearing Sensorium / Orientation: alert Motor Exam: strength 5/5 throughout Psych mental status grossly normal Mood & Affect: Negative for depressed or tearful Skin no rashes or lesions noted and no wounds Sepsis Attestation Sepsis Alert: Yes Sepsis Attestation: Agree w/Sepsis Date exam was performed: 03/22/23 Time exam was performed: 11:00 Possible Source of Sepsis: Pulmonary Sepsis Organ Dysfunction Criteria Present: Acute Respiratory Failure (New need for BiPAP/CPAP or MV) and Creatinine > 2.0 mg/dL Fluid Resuscitation Fluid resuscitation indicated?: Yes (NO - Pt with already volume overloaded status/) Fluid Resuscitation ordered: Lesser volume fluid bolus ordered Amount of fluid ordered: 1,000 Reason for lesser fluid bolus:: Concern for fluid overload and Renal Failure Sepsis Note Date exam was performed: 03/22/23 Time exam was performed: 12:30 Sepsis Attestation: Sepsis re-evaluation was performed MDM MDM MDM Narrative Medical decision making narrative: Patient was placed on BiPAP. This greatly improved her breathing. White count returns at 17 with a bandemia. Pt with a hemoglobin of 11.1. INR 1.1. BUN is 75 and a creatinine of 2.41. Troponin is normal. BNP 238. Total CK4 95 lactic acid 1.6 glucose 164. Urinalysis with no overt infection. CT of the brain and facial bones does not demonstrate any fracture or hemorrhage. My independent interpretation of the chest x-ray is right-sided pneumonia. Because the patient has laid on the floor several episodes of unknown duration has evidence of a mild elevation of the CK erythema of the right face and she tells me that she was laying on her right side I am concerned that possibly she aspirated. Therefore I ordered Zosyn. Patient does have evidence of peripheral edema and and her already weakened state with respiratory compromise am hesitant to provide large fluid boluses. We will begin gentle hydration. History & Record Review Discussion w/independent historian: EMS personnel, Patient and Family Additional record(s) reviewed:: Prior inpatient record, Prior outpatient record, Prior ED visit and Prior labs Lab Data Attestation: I reviewed the patient's lab results. Labs: Laboratory Results - last 24 hr 03/22/23 03/22/23 09:50 11:35 WBC 17.0 H RBC 3.80 L Hgb 11.1 L Hct 33.8 L MCV 88.9 MCH 29.2 MCHC 32.8 RDW Std Deviation 46.1 H RDW Coeff of Jackie 14.2 Plt Count 201 MPV 10.8 Neut % (Auto) Not Reportable Absolute Neuts (auto) 16.3 H Absolute Lymphs (auto) 0.51 L Total Counted 100 Neutrophils % (Manual) 89 H Band Neutrophils % 7 H Lymphocytes % (Manual) 3 L Monocytes % (Manual) 1 Diff Path Review May foll Platelet Estimate ADEQUATE RBC Morphology NORM C+C PT 14.5 INR 1.1 APTT 26.3 Sodium 128 L Potassium 3.6 Chloride 93 L Carbon Dioxide 27.0 Anion Gap 8 BUN 75 H Creatinine 2.41 H Estim Creat Clear Calc 14.71 Est GFR (MDRD) Af Amer 25 L Est GFR (MDRD) Non-Af 21 L BUN/Creatinine Ratio 31.1 H Glucose 164 H Lactic Acid 1.6 Calcium 8.6 Total Bilirubin 0.60 Direct Bilirubin 0.28 AST 38 H ALT 26 Alkaline Phosphatase 100 Total Creatine Kinase 495 H Troponin I High Sens 28 B-Natriuretic Peptide 238.3 H Total Protein 7.0 Albumin 1.9 L Globulin 5.1 H Lipase 11 L Urine Color Yellow Urine Clarity Sl. Cloudy Urine pH 5.0 Ur Specific Erlanger 1.020 Urine Protein 30 H Urine Glucose (UA) Normal Urine Ketones 5 H Urine Occult Blood 250 H Urine Nitrite Negative Urine Bilirubin Negative Urine Urobilinogen Normal Ur Leukocyte Esterase Negative Urine RBC 25-50 SEEN Urine WBC 0 SEEN Ur Squamous Epith Cells 0-5 SEEN Urine Bacteria 1+ Fine Granular Casts 0-5 SEEN Urine Mucus 0 SEEN Radiography Diagnostic Testing: Clinical Impression(s) from Imaging Studies Brain CT 03/22/23 10:08 IMPRESSION: Chronic involutional changes of the brain. Electronically Signed: Toi Euceda MD at 11:21 EST , Chest X-Ray 03/22/23 10:08 IMPRESSION: Pneumonitis involving the right hemithorax as described. Pneumonitis associated with Covid should be ruled out. Electronically Signed: Toi Euceda MD at 11:27 EST , Facial/Sinus 03/22/23 10:08 IMPRESSION: Normal unenhanced CT of the facial bones. Electronically Signed: Toi Euceda MD at 11:22 EST , EKG Initial EKG: Attestation: I personally reviewed and interpreted this EKG as follows: Comments: Sinus rhythm with right bundle branch block ventricular rate of 88 bpm. Differential Diagnosis Chest pain/SOB: ACS, pneumothorax, pneumonia, CHF and COPD Critical Care Time Critical Care Time: Yes Critical care time (excluding procedures): 30-74 minutes (35 min), Including time spent:, Discussing w/Patient &/or Family/Hand Trimmer, Discussing w/Consultants, Arranging Admission or Transfer and Performing Direct Patient Care at Bedside Discharge Plan Dx/Rx/DC Orders Clinical Impression: Acute renal failure, Acute hypoxemic respiratory failure, Frequent falls, Sepsis, Pneumonia Disposition Disposition: Acute Care Hospital [facility]
[2023-03-22 10:25] LABS: Hematocrit 33.8 % (37-47); Hemoglobin 11.1 g/dL (12.0-15.0); Mean Corp Hgb Conc 32.8 g/dL (32-36); Mean Corpuscular Hgb 29.2 pg (27.0-32.0); Mean Corpuscular Volume 88.9 fL (81-99); Mean Platelet Vol. 10.8 fl (6.2-12.0); POSITIVE COUNT YES; POSITIVE DIFFERENTIAL YES; POSITIVE MORPHOLOGY YES; Platelet Count 201 K/mm3 (150-450); RBC Distribution Width CV 14.2 % (11.6-14.6); RBC Distribution Width SD 46.1 fl (35.1-43.9)
[2023-03-22 10:27] LABS: Differential Indicated MANUAL DIFF
[2023-03-22 10:36] LABS: International Normalized Ratio 1.1; Prothrombin Time (Protime)PT. 14.5 SECONDS (11.7-14.9)
[2023-03-22 10:37] LABS: Partial Thromboplast Time 26.3 Seconds (24.1-36.2)
[2023-03-22 10:41] LABS: AST(SGOT) 38 U/L (15-37); Alanine Aminotransfer ALT/SGPT 26 U/L (13-56); Albumin, Serum 1.9 g/dL (3.2-5.0); Alkaline Phosphatase 100 U/L (45-117); Anion Gap 8 (5-15); BUN 75 mg/dL (7-18); BUN/Creat Ratio 31.1 RATIO (10-20); Bilirubin, Direct 0.28 mg/dL (0.00-0.30); Calcium,Total 8.6 mg/dL (8.5-10.1); Chloride 93 mmol/L (98-107); Creatinine, Serum 2.41 mg/dL (0.55-1.02); EST Glomerular Filtration Rate 21 mL/min (>60); Est Glom Filt Rate - Afr Amer 25 mL/min (>60); Estimated Creatinine Clearance 14.71 ml/min; Globulin 5.1 g/dL (2.2-4.2); Glucose 164 mg/dL (74-106); Lipase 11 U/L (13-75); Potassium 3.6 mmol/L (3.5-5.1); Sodium Level 128 mmol/L (136-145); Troponin-I HS 28 pg/mL (3.0-54.0)
[2023-03-22 10:48] LABS: CPK Total, Creatine Kinase 495 U/L (26-192)
[2023-03-22 10:54] LABS: Lymphocyte 3 % (19-41); Monocyte 1 % (0-10); Neutrophil-Band 7 % (0-5); Neutrophil-Segmented 89 % (47-70); Platelet Estimate ADEQUATE (ADEQ); Red Cell Morphology NORM C+C NORMAL (NORM C&C); Total Cells Counted 100 (MANUAL DIFF)
[2023-03-22 10:55] LABS: Absolute Lymphocyte Count 0.51 X10^3/uL (0.83-4.51); Absolute Neutrophil Count 16.3 X10^3/uL (2.0-7.7)
[2023-03-22 11:00] LABS: Lactic Acid 1.6 mmol/L (0.4-1.9)
[2023-03-22 11:06] LABS: BNP,B-Type NATRIURETIC PEPTIDE 238.3 pg/mL (0-100)
[2023-03-22] MEDS: Ipratropium/Albuterol Sulfate 3 ML AMPUL.NEB INHALATION (11:17)
[2023-03-22] MEDS: Piperacil/Tazobactam 4.5 GM in 0.9% Normal Saline (100mL MB+) 100 ML IV (11:44)
[2023-03-22 11:45] LABS: Mucous, Urine 0 SEEN /hpf (<or=2+); White Blood Cells 0 SEEN /hpf (0-5)
[2023-03-22 11:51] LABS: Color, Urine Yellow (Yellow); Glucose, Dipstick Normal (Normal); Ketone-Dipstick 5 mg/dl (Negative); Leukocyte Esterase-Dipstick Negative /ul (Negative); Nitrite-Dipstick Negative (Negative); Occult Blood-Urine 250 /ul (Negative); Protein-Dipstick 30 mg/dl (Negative); Urine Bilirubin Dipstick Negative (Negative); Urine Clarity Sl. Cloudy (Clear); Urine Urobilinogen Normal (Normal)
[2023-03-22 11:58] LABS: Bacteria 1+ /hpf (None Seen); Fine Granular Cast- Urine 0-5 SEEN /lpf (0-5); Red Blood Cells-Urine 25-50 SEEN /hpf (0-5); Squamous Epithelial Cells - UA 0-5 SEEN /hpf (5-10)
[2023-03-22] MEDS: 0.9% Normal Saline (1000mL) 1,000 ML 999 ML IV (12:22)
--- NOTE | 2023-03-22 12:52 | HP.PCM.HOS_ITS ---
HPI - General General Date of Admission: 03/22/23 Date of Service: 03/22/23 Chief Complaint: Altered mental status and falls HPI Narrative MAINE GALLEGOS, is a 72 F who presents with generalized weakness altered mental status and falls. Patient symptoms started a week prior to her admission. Per patient and her sister who was in the room at the time of my assessment patient has experienced progressive generalized weakness over the past couple of days. She had apparently falling a day prior to coming. Patient's son who lives in the neighborhood was able to help her of the floor. Patient sister found patient laying on the floor on the morning of presentation. Patient was also found to be more lethargic than usual. Was brought to the emergency department as a result. In the emergency department was consistent with sepsis secondary to pneumonia. Patient also went into respiratory distress resulting in patient being placed on noninvasive ventilation BiPAP and decision made to admit patient to the intensive care unit for further management [facility] Medical History (Updated 03/22/23 @ 12:[address] Arun Bliss, ) Anemia Anxiety Aortic stenosis Chronic kidney disease, stage III (moderate) COPD (chronic obstructive pulmonary disease) Coronary artery disease Depression Diabetes Fibromyalgia History of transcatheter aortic valve replacement (TAVR) Hypercholesterolemia Hypertension Lumbar degenerative disc disease PAD (peripheral artery disease) Home Medications aspirin 81 mg tablet,delayed release (Adult Low Dose Aspirin) 81 mg PO DAILY HEART HEALTH 06/25/18 [History Last Taken 03/21/23] chlorpheniramine maleate 4 mg tablet (Allergy (chlorpheniramine)) 8 mg PO BID ALLERGIES 06/25/18 [History Last Taken 03/21/23] clopidogrel 75 mg tablet 75 mg PO DAILY BLOOD THINNER 06/25/18 [History Last Taken 03/21/23] coenzyme Q10 100 mg-vitamin E 20 mg-vitamin E mixed 15 mg capsule 2 ea PO BID SUPPLEMENT 06/25/18 [History Last Taken 03/21/23] cyanocobalamin (vitamin B-12) 1,000 mcg tablet 1,000 mcg PO DAILY SUPPLEMENT 06/25/18 [History Last Taken 03/21/23] cyclobenzaprine 10 mg tablet 20 mg PO QHS MUSCLE SPASMS 06/25/18 [History Last Taken 03/21/23] escitalopram oxalate 20 mg tablet 20 mg PO DAILY DEPRESSION 06/25/18 [History Last Taken 03/21/23] meloxicam 15 mg tablet 15 mg PO DAILY ARTHRITIS 06/25/18 [History Last Taken 03/21/23] multivitamin 1 ea PO DAILY HEALTH MAINTENANCE 06/25/18 [History Last Taken 1 05/22/22] pioglitazone 45 mg tablet 45 mg PO DAILY BLOOD SUGARS 06/25/18 [History Last Taken 03/21/23] tramadol 50 mg tablet 50 - 100 mg PO Q6H PRN BACK PAIN 06/25/18 [History Last Taken 03/21/23] valsartan 320 mg tablet 320 mg PO DAILY HEART 01/11/21 [History Last Taken 03/21/23] bupropion HCl 150 mg 24 hr tablet, extended release 150 mg PO DAILY DEPRESSION 03/22/23 [History Last Taken 03/21/23] carvedilol 12.5 mg tablet 37.5 mg PO BID HEART 03/22/23 [History Last Taken 03/21/23] cholecalciferol (vitamin D3) 25 mcg (1,000 unit) capsule 25 mcg PO DAILY SUPPLEMENT 03/22/23 [History Last Taken 03/21/23] clonazepam 1 mg tablet 1 mg PO BID PRN ANXIETY 03/22/23 [History Last Taken Unknown] docusate sodium 100 mg capsule (Colace) 100 mg PO DAILY STOOL SOFTENER 03/22/23 [History Last Taken 03/21/23] evolocumab 140 mg/mL subcutaneous pen injector (Esperanza Levy) 140 mg subcut Q14D CHOLESTEROL 03/22/23 [History Last Taken 03/10/23] famotidine 20 mg tablet 20 mg PO DAILY ACID REFLUX 03/22/23 [History Last Taken 03/21/23] furosemide 40 mg tablet 40 mg PO DAILY EDEMA 03/22/23 [History Last Taken 03/21/23] magnesium citrate 100 mg tablet 100 mg PO DAILY SUPPLEMENT 03/22/23 [History Last Taken 03/21/23] olive leaf extract 250 mg capsule 250 mg PO BID SUPPLEMENT 03/22/23 [History Last Taken 03/21/23] psyllium husk 0.4 gram capsule (Fiber (psyllium husk)) 0.4 g PO DAILY 03/22/23 [History Last Taken 03/21/23] tiotropium bromide 18 mcg capsule with inhalation device (Spiriva with HandiHaler) 1 cap inhalation DAILY SHORTNESS OF BREATH 03/22/23 [History Last Taken 03/21/23] trazodone 50 mg tablet 50 - 100 mg PO QHS INSOMNIA 03/22/23 [History Last Taken 03/21/23] vitamin K2 45 mcg capsule 45 mcg PO DAILY SUPPLEMENT 03/22/23 [History Last Taken 03/21/23] zinc acetate 50 mg (zinc) capsule 50 mg PO DAILY SUPPLEMENT 03/22/23 [History Last Taken 03/21/23] Allergy/AdvReac Type Severity Reaction Status Date / Time metformin Allergy Unknown Upset Verified 03/22/23 11:46 Stomach acetaminophen [From Tylenol] Allergy MOOD Verified 03/22/23 11:46 CHANGES Nhhpfmu-[id number]-VwD Reductase Allergy JOINT PAIN Verified 03/22/23 11:46 Inhibitor [Titnade-Hbp-Zua Reductase Inhibitor] prednisone AdvReac Mild BODY ACHES Verified 03/22/23 09:59 oxycodone AdvReac Anaphylaxis Verified 03/22/23 11:46 Surgical History (Updated 03/22/23 @ 10:[address] Arun Bliss DO) H/O: hysterectomy History of appendectomy History of lumbar spinal fusion S/P CABG x 1 Social History Smoking Status: Former smoker ROS ROS Narrative GENERAL: Generalized weakness HEENT: denies headache, sinus congestion, RESPIRATORY: denies cough, sputum production, CARDIAC: denies chest pain, palpitations, orthopnea, GASTROINTESTINAL: denies abdominal pain, nausea, GENITOURINARY: denies dysuria, urgency, frequency, EXTREMITY: denies swelling MUSCULOSKELETAL: denies current joint pain or tenderness NEUROLOGIC: denies focal numbness, weakness, tingling HEMATOLOGIC: denies easy bruising and/or hemorrhage INTEGUMENT: denies rashes PSYCHIATRIC: denies suicidal or homicidal ideation Vital Signs Vital Signs Vital Signs: 03/22/23 09:46 03/22/23 10:08 03/22/23 10:30 Temperature 97.2 F L 97.6 F L Temperature Source Temporal Temporal Pulse Rate 83 94 Respiratory Rate 26 H 26 H Respiratory Effort Respiratory Pattern Blood Pressure 103/86 H Blood Pressure Mean 91 Pulse Ox 77 94 93 Oxygen Delivery Method Room Air Bi-pap Bi-pap Fraction of Inspired Oxygen (FIO2) 03/22/23 10:09 03/22/23 11:00 12/07/23 11:30 Temperature 97.8 F 97.8 F Temperature Source Temporal Core Pulse Rate 94 81 Respiratory Rate 16 24 H Respiratory Effort Short of Breath Respiratory Pattern Tachypnea Blood Pressure 106/78 113/100 H Blood Pressure Mean 87 104 Pulse Ox 93 93 Oxygen Delivery Method Bi-pap Bi-pap Bi-pap Fraction of Inspired Oxygen (FIO2) 03/22/23 10:02 03/22/23 11:20 03/22/23 12:00 Temperature 98.8 F Temperature Source Core Pulse Rate 87 84 90 Respiratory Rate 27 H 27 H 18 Respiratory Effort Respiratory Pattern Blood Pressure 114/80 Blood Pressure Mean 91 Pulse Ox 93 97 Oxygen Delivery Method Bi-pap Fraction of Inspired Oxygen (FIO2) 50 03/22/23 12:47 03/22/23 12:47 Temperature 98.4 F 98.9 F Temperature Source Core Pulse Rate 74 64 Respiratory Rate 16 14 Respiratory Effort Respiratory Pattern Blood Pressure 99/45 L 99/78 Blood Pressure Mean 63 85 Pulse Ox 98 72 Oxygen Delivery Method Bi-pap Fraction of Inspired Oxygen (FIO2) Weight Weight: 104.5 kg Body Mass Index (BMI) 44.9 Physical Exam Narrative GENERAL patient appears ill looking, on BiPAP HEENT: Atraumatic; normocephalic EYES; Anicteric, Normal Conjunctiva NECK; supple, normal thyroid, RESPIRATORY: Diminished to auscultation, tachypneic CARDIOVASCULAR: Regular S1 S2, GI: soft, normoactive bowel sounds, : No Renal angle tenderness; EXTREMITIES: No edema, no clubbing, MUSCULOSKELETAL: no muscle wasting NEURO: Awake; no lateralizing signs. SKIN: Areas of ecchymosis on extremities PSYCH; Flat affect Results Lab / Micro Data 03/22/23 09:50 03/22/23 09:50 Labs: Laboratory Results - last 24 hr 03/22/23 09:50: WBC 17.0 H, RBC 3.80 L, Hgb 11.1 L, Hct 33.8 L, MCV 88.9, MCH 29.2, MCHC 32.8, RDW Std Deviation 46.1 H, RDW Coeff of Jackie 14.2, Plt Count 201, MPV 10.8, Neut % (Auto) Not Reportable, Absolute Neuts (auto) 16.3 H, Absolute L ymphs (auto) 0.51 L, Total Counted 100, Neutrophils % (Manual) 89 H, Band Neutrophils % 7 H, Lymphocytes % (Manual) 3 L, Monocytes % (Manual) 1, Diff Path Review August, Platelet Estimate ADEQUATE, RBC Morphology NORM C+C, PT 14.5, INR 1.1, APTT 26.3, Sodium 128 L, Potassium 3.6, Chloride 93 L, Carbon Dioxide 27.0, Anion Gap 8, BUN 75 H, Creatinine 2.41 H, Estim Creat Clear Calc 14.71, Est GFR (MDRD) Af Amer 25 L, Est GFR (MDRD) Non-Af 21 L, BUN/Creatinine Ratio 3 1.1 H, Glucose 164 H, Lactic Acid 1.6, Calcium 8.6, Total Bilirubin 0.60, Direct Bilirubin 0.28, AST 38 H, ALT 26, Alkaline Phosphatase 100, Total Creatine Kinase 495 H, Troponin I High Sens 28, B-Natriuretic Peptide 238.3 H, Total Protein 7.0, Albumin 1.9 L, Globulin 5.1 H, Lipase 11 L 03/22/23 11:35: Urine Color Yellow, Urine Clarity Sl. Cloudy, Urine pH 5.0, Ur Specific [place] 1.020, Urine Protein 30 H, Urine Glucose (UA) Normal, Urine Ketones 5 H, Urine Occult Blood 250 H, Urine Nitrite Negative, Urine Bilirubin Negative, Urine Urobilinogen Normal, Ur Leukocyte Esterase Negative, Urine RBC 25-50 SEEN, Urine WBC 0 SEEN, Ur Squamous Epith Cells 0-5 SEEN, Urine Bacteria 1+, Fine Granular Casts 0-5 SEEN, Urine Mucus 0 SEEN Micro: Microbiology 03/22/23 11:40 Nasal Secretion SARS-CoV-2 & FLU Antigen (Rapid) - Final Imagaing Radiology Impression Brain CT 03/22/23 10:08 IMPRESSION: Chronic involutional changes of the brain. Electronically Signed: Toi Euceda MD at 11:21 EST , Chest X-Ray 03/22/23 10:08 IMPRESSION: Pneumonitis involving the right hemithorax as described. Pneumonitis associated with Covid should be ruled out. Electronically Signed: Toi Euceda MD at 11:27 EST , Facial/Sinus 03/22/23 10:08 IMPRESSION: Normal unenhanced CT of the facial bones. Electronically Signed: Toi Euceda MD at 11:22 EST , Assessment & Plan Assessment/Plan (1) Sepsis: (2) Pneumonia: (3) Acute hypoxemic respiratory failure: (4) Acute renal failure: PLAN: Plan Patient is a 72-year-old lady with multiple comorbidities admitted with altered mental status, recurrent falls and progressive generalized weakness 1. Acute metabolic encephalopathy ? Multifactorial including hypoxic respiratory failure from pneumonia, acute kidney injury as well as rhabdomyolysis admitted to the intensive care unit for treatment of the underlying clinical condition 2. Acute hypoxic respiratory failure ? Evidenced by tachypnea and use of accessory muscles in breathing as well as hypoxia. Patient had to be placed on noninvasive ventilation BiPAP and admitted to the intensive care unit with consultation placed to customer operations specialist/out of town collection clerk 3. Sepsis ? Secondary to pneumonia evidence of sepsis (presence of an infection pneumonia, leukocytosis, tachypnea with respiratory rate of 25 and evidence of endorgan dysfunction respiratory failure as well as acute kidney injury). Patient treated with broad-spectrum antibiotic therapy after cultures have been sent patient was resuscitated with fluids patient did not receive 30ml/kg due to risk of congestive heart failure 4. Acute kidney injury ? Superimposed on chronic kidney disease stage III patient on fluids with subsequent monitoring of electrolytes ordered 5. Acute rhabdomyolysis ? Secondary to prolonged period of immobilization 6. Coronary artery disease ? With previous single-vessel CABG. Patient is on guideline directed medical therapy 7. Essential hypertension ? Patient blood pressure relatively on the low side patient antihypertensives held 8. Hyponatremia ? Suspected to be secondary to hypovolemic hyponatremia do expect improvement with fluid resuscitation daily BMPs ordered for monitoring 9. Diabetes mellitus type II -patient's oral hypoglycemics held. Placed on long acting insulin, Accu-Cheks a.c. and at bedtime and covered with sliding scale insulin 10. Physical deconditioning - Requested for PT OT eval and drug abuse social worker to assist with discharge planning 11. Class III obesity with BMI of 45 ? Complicating care weight loss advised 12. DVT prophylaxis ? SC heparin Time spent in the patient's overall evaluation,decision-making process, review of diagnostic data, adjustment of management, discussion with other providers, nursing nursing and ancillary staff involved in patient's care documentation, 80 minutes Advance planning; did discuss with the patient and family regarding advanced directives as well as CODE STATUS. Did explain the various scenarios involved ( FULL CODE, DNR CCA, DNR CCA with no intubation, and DNR CC and what each meant) patient elected to remain full code with CPR and intubation if needed. Order was placed. Time spent on discussion 18 minutes. Sepsis Attestation Sepsis Alert: Yes Sepsis Attestation: Agree w/Sepsis Date exam was performed: 03/22/23 Time exam was performed: 12:50 Possible Source of Sepsis: Pulmonary Sepsis Organ Dysfunction Criteria Present: Acute Respiratory Failure (New need for BiPAP/CPAP or MV), Creatinine > 2.0 mg/dL and New/Unexplained change in mental status Fluid Resuscitation Fluid Resuscitation ordered: Lesser volume fluid bolus ordered Amount of fluid ordered: 999 Reason for lesser fluid bolus:: Heart failure Sepsis Note Date exam was performed: 03/22/23 Time exam was performed: 16:06 Response to fluids: Fluid responsive hypotension Charges/Coding Visit Charges Inpatient E&M: 02140 Init Hosp L3 Procedures Hospitalists Procedures: 61583 Advncd Care Plan 30 Min
[2023-03-22 13:16] LABS: Allen Test Positive; Base Excess -2 mmol/L (-2 to +2); Bicarbonate 23.4 mmol/L (22-26); Blood Gas Specimen Type ART; Mode Not entered; O2 Delivery Device BiPAP; PO2 77 mmHG (75-100); RR 12; SITE R Brach; SO2 95 % (95-99); Total Carbon Dioxide 25 mmol/L; pCO2 38.8 mmHg (35-45); pH 7.39 (7.35-7.45)
--- NOTE | 2023-03-22 15:29 | EX.PCM.CONCC ---
Assessment & Plan Assessment/Plan (1) Acute hypoxemic respiratory failure: (2) Acute renal failure: (3) Pneumonia: (4) Sepsis: PLAN: Plan Assessment Acute toxic respiratory failure on continuous BiPAP Sepsis secondary to right-sided pneumonia LAVERNE on CKD baseline creatinine appears to be around 1.4 fall with mild rabdomyolosis CAD s/p CABG in 2018 HTN Hypertension Morbid obesity BMI 45 Plan ?Patient is on continuous BiPAP. Oxygen as tolerated ? Chest x-ray showing right-sided pneumonia with bilateral pulmonary congestion. She received a dose of Zosyn. Will start her on cefepime and vancomycin. Legionella urine antigen is negative. MRSA swab is pending. Obtain sputum culture. Blood culture obtained ?Patient's baseline creatinine appears to be around 1.4. Her creatinine is at 2.41. She appears volume overloaded with bilateral lower extremity edema and pulmonary edema. Probnp is elevated. Avoid volume overload. will administer a dose of lasix 60mg IV. Very mild elevation of CPK. Will hold off excessive fluids for now - ECHO ordered ?Urinary catheter placed in ED. Will obtain renal ultrasound. Avoid nephrotoxins ?pt is on ASA and Plavix for CAD -DVT ppx SubQ heparin -GI ppx PO protonix I spent 36 minutes of critical care time excluding the procedure time. I reviewed lab work, images, previous records and medication list. HPI Consult Data Date of Consult: 03/22/23 HPI Narrative Reason for Consultation: ICU care HPI Narrative: MAINE GALLEGOS, is a 72 F with past medical history of CAD status post CABG in 2018, ex-smoker, COPD,Hypertension and PAD. Patient presented with worsening shortness of breath and cough for the past couple of days. She is also reported weakness. History is limited as patient is on BiPAP and having difficulty talking. She also reports cough nonproductive. Has also had multiple falls over the past day. Patient is on BiPAP in the ER upon evaluation. Her respiratory rate is around 20-22. She is on IPAP of 14 and EPAP of 8 and she is pulling good tidal volumes ranging between 400 to 600 cc. She was on 40% FiO2 and satting around 92% [facility] Medical History (Updated 03/22/23 @ 12:[address] Arun Bliss, DO) Anemia Anxiety Aortic stenosis Chronic kidney disease, stage III (moderate) COPD (chronic obstructive pulmonary disease) Coronary artery disease Depression Diabetes Fibromyalgia History of transcatheter aortic valve replacement (TAVR) Hypercholesterolemia Hypertension Lumbar degenerative disc disease PAD (peripheral artery disease) Home Medications aspirin 81 mg tablet,delayed release (Adult Low Dose Aspirin) 81 mg PO DAILY HEART HEALTH 06/25/18 [History Last Taken 03/21/23] chlorpheniramine maleate 4 mg tablet (Allergy (chlorpheniramine)) 8 mg PO BID ALLERGIES 06/25/18 [History Last Taken 03/21/23] clopidogrel 75 mg tablet 75 mg PO DAILY BLOOD THINNER 06/25/18 [History Last Taken 03/21/23] coenzyme Q10 100 mg-vitamin E 20 mg-vitamin E mixed 15 mg capsule 2 ea PO BID SUPPLEMENT 06/25/18 [History Last Taken 03/21/23] cyanocobalamin (vitamin B-12) 1,000 mcg tablet 1,000 mcg PO DAILY SUPPLEMENT 06/25/18 [History Last Taken 03/21/23] cyclobenzaprine 10 mg tablet 20 mg PO QHS MUSCLE SPASMS 06/25/18 [History Last Taken 03/21/23] escitalopram oxalate 20 mg tablet 20 mg PO DAILY DEPRESSION 06/25/18 [History Last Taken 03/21/23] meloxicam 15 mg tablet 15 mg PO DAILY ARTHRITIS 06/25/18 [History Last Taken 03/21/23] multivitamin 1 ea PO DAILY HEALTH MAINTENANCE 06/25/18 [History Last Taken 03/21/23] pioglitazone 45 mg tablet 45 mg PO DAILY BLOOD SUGARS 06/25/18 [History Last Taken 03/21/23] tramadol 50 mg tablet 50 - 100 mg PO Q6H PRN BACK PAIN 06/25/18 [History Last Taken 03/21/23] valsartan 320 mg tablet 320 mg PO DAILY HEART 01/11/21 [History Last Taken 03/21/23] bupropion HCl 150 mg 24 hr tablet, extended release 150 mg PO DAILY DEPRESSION 03/22/23 [History Last Taken 03/21/23] carvedilol 12.5 mg tablet 37.5 mg PO BID HEART 03/22/23 [History Last Taken 03/21/23] cholecalciferol (vitamin D3) 25 mcg (1,000 unit) capsule 25 mcg PO DAILY SUPPLEMENT 03/22/23 [History Last Taken 03/21/23] clonazepam 1 mg tablet 1 mg PO BID PRN ANXIETY 03/22/23 [History Last Taken Unknown] docusate sodium 100 mg capsule (Colace) 100 mg PO DAILY STOOL SOFTENER 03/22/23 [History Last Taken 03/21/23] evolocumab 140 mg/mL subcutaneous pen injector (Repatha SureClick) 140 mg subcut Q14D CHOLESTEROL 03/22/23 [History Last Taken 03/10/23] famotidine 20 mg tablet 20 mg PO DAILY ACID REFLUX 03/22/23 [History Last Taken 03/21/23] furosemide 40 mg tablet 40 mg PO DAILY EDEMA 03/22/23 [History Last Taken 03/21/23] magnesium citrate 100 mg tablet 100 mg PO DAILY SUPPLEMENT 03/22/23 [History Last Taken 03/21/23] olive leaf extract 250 mg capsule 250 mg PO BID SUPPLEMENT 03/22/23 [History Last Taken 03/21/23] psyllium husk 0.4 gram capsule (Fiber (psyllium husk)) 0.4 g PO DAILY 03/22/23 [History Last Taken 03/21/23] tiotropium bromide 18 mcg capsule with inhalation device (Spiriva with HandiHaler) 1 cap inhalation DAILY SHORTNESS OF BREATH 03/22/23 [History Last Taken 03/21/23] trazodone 50 mg tablet 50 - 100 mg PO QHS INSOMNIA 03/22/23 [History Last Taken 03/21/23] vitamin K2 45 mcg capsule 45 mcg PO DAILY SUPPLEMENT 03/22/23 [History Last Taken 03/21/23] zinc acetate 50 mg (zinc) capsule 50 mg PO DAILY SUPPLEMENT 03/22/23 [History Last Taken 03/21/23] Allergy/AdvReac Type Severity Reaction Status Date / Time metformin Allergy Unknown Upset Verified 03/22/23 11:46 Stomach acetaminophen [From Tylenol] Allergy MOOD Verified 03/22/23 11:46 CHANGES Rcvhxzi-HSU-DcR Reductase Allergy JOINT PAIN Verified 03/22/23 11:46 Inhibitor [Jrutast-Ksl-Uei Reductase Inhibitor] prednisone AdvReac Mild BODY ACHES Verified 03/22/23 09:59 oxycodone AdvReac Anaphylaxis Verified 03/22/23 11:46 Surgical History (Updated 03/22/23 @ 10:[address] Arun Bliss, DO) H/O: hysterectomy History of appendectomy History of lumbar spinal fusion S/P CABG x 1 Social History Smoking Status: Former smoker ROS ROS Narrative Limited as patient is on BiPAP Physical Exam Narrative General alert on BiPAP, does not appear in distress HEENT. Normocephalic atraumatic, pupils equal and reactive Respiratory reduced air entry bilaterally, bilateral basal crackles worse on the right Cardiac S1-S2, regular rate and rhythm GI abdomen soft and nontender MSK lateral lower extremity edema 2+ Skin no rashes Neuro moves all extremities, no dysarthria, no facial droop Lab / Micro Data 03/22/23 09:50 03/22/23 09:50 Labs: Laboratory Results - last 24 hr 03/22/23 09:50: WBC 17.0 H, RBC 3.80 L, Hgb 11.1 L, Hct 33.8 L, MCV 88.9, MCH 29.2, MCHC 32.8, RDW Std Deviation 46.1 H, RDW Coeff of Jackie 14.2, Plt Count 201, MPV 10.8, Neut % (Auto) Not Reportable, Absolute Neuts (auto) 16.3 H, Absolute Lymphs (auto) 0.51 L, Total Counted 100, Neutrophils % (Manual) 89 H, Band Neutrophils % 7 H, Lymphocytes % (Manual) 3 L, Monocytes % (Manual) 1, Diff Path Review August, Platelet Estimate ADEQUATE, RBC Morphology NORM C+C, PT 14.5, INR 1.1, APTT 26.3, Sodium 128 L, Potassium 3.6, Chloride 93 L, Carbon Dioxide 27.0, Anion Gap 8, BUN 75 H, Creatinine 2.41 H, Estim Creat Clear Calc 14.71, Est GFR (MDRD) Af Amer 25 L, Est GFR (MDRD) Non-Af 21 L, BUN/Creatinine Ratio 31.1 H, Glucose 164 H, Lactic Acid 1.6, Calcium 8.6, Total Bilirubin 0.60, Direct Bilirubin 0.28, AST 38 H, ALT 26, Alkaline Phosphatase 100, Total Creatine Kinase 495 H, Troponin I High Sens 28, B-Natriuretic Peptide 238.3 H, Total Protein 7.0, Albumin 1.9 L, Globulin 5.1 H, Lipase 11 L 03/22/23 11:35: Urine Color Yellow, Urine Clarity Sl. Cloudy, Urine pH 5.0, Ur Specific [place] 1.020, Urine Protein 30 H, Urine Glucose (UA) Normal, Urine Ketones 5 H, Urine Occult Blood 250 H, Urine Nitrite Negative, Urine Bilirubin Negative, Urine Urobilinogen Normal, Ur Leukocyte Esterase Negative, Urine RBC 25-50 SEEN, Urine WBC 0 SEEN, Ur Squamous Epith Cells 0-5 SEEN, Urine Bacteria 1+, Fine Granular Casts 0-5 SEEN, Urine Mucus 0 SEEN Micro: Microbiology 03/22/23 11:40 Nasal Secretion SARS-CoV-2 & FLU Antigen (Rapid) - Final ABG Data ABG results: ABG 03/22/23 13:13 Specimen Type ART Sample Site R Brach pH 7.39 Bicarbonate Actual 23.4 Total CO2 25 Base Excess -2 O2 Saturation 95 O2 % 50.0 ABG pCO2 38.8 ABG pO2 77 [facility] Test Positive Respiration Rate 12 O2 Delivery Device BiPAP Vent Mode Not entered Imagaing Radiology Impression Brain CT 03/22/23 10:08 IMPRESSION: Chronic involutional changes of the brain. Electronically Signed: Toi Euceda MD at 11:21 EST , Chest X-Ray 03/22/23 10:08 IMPRESSION: Pneumonitis involving the right hemithorax as described. Pneumonitis associated with Covid should be ruled out. Electronically Signed: Toi Euceda MD at 11:27 EST , Facial/Sinus 03/22/23 10:08 IMPRESSION: Normal unenhanced CT of the facial bones. Electronically Signed: Toi Euceda MD at 11:22 EST , Sepsis Attestation Sepsis Alert: Yes Sepsis Attestation: Agree w/Sepsis Date exam was performed: 03/22/23 Possible Source of Sepsis: Pulmonary Sepsis Organ Dysfunction Criteria Present: Acute Respiratory Failure (New need for BiPAP/CPAP or MV) Fluid Resuscitation Fluid Resuscitation ordered: Lesser volume fluid bolus ordered Amount of fluid ordered: 1,000 Reason for lesser fluid bolus:: Heart failure Charges/Coding Procedures Hospitalists Procedures: 51278 Critial Care 1st Hr
--- NOTE | 2023-03-22 15:44 | US_ITS ---
INDICATION: Abnormal labs EXAMINATION: Ultrasound US Kidney(s) complete (eg, kidneys and bladder) TECHNIQUE: Meyers scale and color doppler images were obtained of the kidneys. COMPARISON: No relevant prior comparison study available FINDINGS: RIGHT KIDNEY: Increased cortical echogenicity. Measures 11.1 x 4.3 x 4.1 cm. There is no hydronephrosis. There is a 1.3 cm simple cyst in the upper pole which is benign. No follow-up imaging recommended. No shadowing calculus, solid lesion or perinephric collection is demonstrated. LEFT KIDNEY: Increased cortical echogenicity. Measures 9.5 x 3.9 x 4.9 cm. There is no hydronephrosis. There is a 3.2 cm simple cyst in the lower pole. No follow-up imaging recommended. No shadowing calculus, solid lesion or perinephric collection is demonstrated. URINARY BLADDER: Decompressed by Pineda catheter. Ureteral jets not identified. US/Kidney and Bladder IMPRESSION: No hydronephrosis or urinary calculi. Bilateral increased renal cortical echogenicity compatible with medical renal disease. Electronically Signed: Manpreet Barron MD at 20:38 EST Reading Location ID and State: [address] [place] [address] Tel , Service support ,
--- NOTE | 2023-03-22 15:49 | ECHOCS_ITS ---
Reason For Study: CHF Procedure This was a 2D Doppler, Color Flow transthoracic echocardiogram. Technically difficult study. Echo done with patient sitting upright due to SOB. Contrast injection was performed. Exam performed portable in ICU/CCU. Left Ventricle Normal size and thickness. The left ventricular ejection fraction is 65 %. Unable to assess diastolic function based on available data. Right Ventricle Normal right ventricle. Atria The left atrium is severely enlarged. Normal right atrium. Mitral Valve Mitral annuloplasty ring versus severe mitral annular calcification. Mild-Moderate mitral valve stenosis. Mild (1+) mitral valve insufficiency. Tricuspid Valve Trivial tricuspid valve insufficiency. Unable to estimate RV systolic pressure due to insufficient tricuspid regurgitant envelope. Aortic Valve Aortic bioprosthetic stent valve with 16 mmHg gradient. Pulmonic Valve The pulmonic valve is not well visualized. Great Vessels The aortic root is not well visualized. Pericardium/Pleural No pericardial effusion. Medication Diluted definity 2ml given slow IV push to enhance endocardial definition. MMode/2D Measurements & Calculations LVIDd: 4.8 cm IVSd: 0.97 cm LVOT diam: 1.9 cm LVIDs: 3.6 cm LVPWd: 1.0 cm FS: 25.6 % LVOT area: 2.7 cm2 Ao root diam: 2.9 cm LAV(MOD-sp4): 80.1 ml LVAd ap4: 43.8 cm2 LA dimension: 5.1 cm LVLd ap4: 9.1 cm EDV(MOD-sp4): 174.6 ml EDV(sp4-el): 179.9 ml LVAs ap4: 24.6 cm2 LVLs ap4: 7.5 cm ESV(MOD-sp4): 65.0 ml ESV(sp4-el): 68.3 ml EF(MOD-sp4): 62.8 % EF(sp4-el): 62.0 % SV(MOD-sp4): 109.6 ml SV(sp4-el): 111.5 ml LA A4 area: 26.1 cm2 TAPSE: 1.5 cm Time Measurements MV dec time: 0.36 sec Doppler Measurements & Calculations MV E max parminder: 150.6 cm/sec Lat Peak E' Parminder: 10.5 cm/sec Med Peak E' Parminder: 5.1 cm/sec MV A max parminder: 132.3 cm/sec E/E' lat: 14.3 E/E' med: 29.5 MV E/A: 1.1 MV V2 max: 136.7 cm/sec MV P1/2t max parminder: 133.7 cm/sec Ao V2 max: 280.9 cm/sec MV max P.5 mmHg MV P1/2t: 110.9 msec Ao max P.6 mmHg MV V2 mean: 84.0 cm/sec Ao V2 mean: 187.8 cm/sec MV mean P.2 mmHg MV dec slope: 353.1 cm/sec2 Ao mean P.3 mmHg MV V2 VTI: 47.1 cm MVA(P1/2t): 2.0 cm2 Ao V2 VTI: 60.2 cm AV (velocity ratio): 0.41 MVA(VTI): 1.4 cm2 SONALI(I,D): 1.1 cm2 SONALI(V,D): 1.0 cm2 LV V1 max: 103.3 cm/sec SV(LVOT): 67.5 ml PA V2 max: 110.1 cm/sec LV V1 max P.3 mmHg LV V1 mean P.6 mmHg LV V1 mean: 76.1 cm/sec LV V1 VTI: 24.6 cm ECHO/Echo Complete W/ Contrast Interpretation Summary The left ventricular ejection fraction is 65 %. Mitral annuloplasty ring versus severe mitral annular calcification. Mild (1+) mitral valve insufficiency. Mild-Moderate mitral valve stenosis. 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 Ordering Physician: Lucille Jauregui Performed By: Ashok Torre RCS
--- NOTE | 2023-03-22 15:50 | ED.RN ---
report given to ICU. will call when bed is clean.
--- NOTE | 2023-03-22 16:49 | ED.RN ---
left message for sister that pt is going to ICU bed 10
--- NOTE | 2023-03-22 16:53 | PCM.OP.PRO ---
Procedure Report Date of Procedure: 03/22/23 Assessment & Plan Assessment/Plan (1) Sepsis: QUALIFIERS: Sepsis type: sepsis due to unspecified organism Procedures Radiology Radiology Access Procedures: PICC Procedure Time Out Time Out Informed consent given: Yes Consent signed: Yes Time out checklist: patient, procedure, site marked/identified, positioning of patient, supplies available, allergies confirmed and team agrees on procedure Time out verified: Yes Time out date: 03/22/23 Time out time: 15:00 PICC Line Insertion Reason for Insertion: Poor Venous Access Date of Insertion: 03/22/23 Ok to use: Yes Type of PICC inserted: Dual Power PICC PICC Lot #: [id number] PICC Reference #: [id number] Microintroducer Used: Yes (in kit) Ultrasound/Equipment Used: Probe Cover Kit Trimmed Length (cm): 44 Insertion Length (cm): 43 Exposed Length (cm): 1 Tip Placement: Caval Atrial Junction Placement Confirmation: 3CG Insertion Vein: Right Brachial Insertion Attempts: 1 Local Anesthesia Used: Lidocaine 1% (in kit) Dressing Applied: Statlock and Tegaderm CHG Arm Measurement above site (in cm): 39 Patient Tolerated Procedure: Well Threading Difficulties: Yes Comments Comment: Patient tolerated the procedure well. Difficult to position the patient ideally for the procedure, given BiPAP and restricted mobility. There was difficulty advancing the catheter at suspected arch of the axillary vein. ER nurse was able to help position the patient under the sterile drape, which allowed final advancement and descent into the SVC. Primary nurse and charge nurse aware that PICC line is ready to use after 3 CG tip verification.
[2023-03-22 17:11] LABS: Anion Gap 8 (5-15); BUN 68 mg/dL (7-18); Calcium,Total 7.9 mg/dL (8.5-10.1); Chloride 98 mmol/L (98-107); Creatinine, Serum 2.06 mg/dL (0.55-1.02); EST Glomerular Filtration Rate 25 mL/min (>60); Est Glom Filt Rate - Afr Amer 30 mL/min (>60); Estimated Creatinine Clearance 17.21 ml/min; Glucose 146 mg/dL (74-106); Potassium 3.7 mmol/L (3.5-5.1); Sodium Level 132 mmol/L (136-145)
[2023-03-22] MEDS: Cefepime HCl 2 GM in 0.9% Normal Saline (100mL MB+) 100 ML IV (18:10)
[2023-03-22] MEDS: Lactated Ringers 1,000 ML 125 ML IV (18:10)
[2023-03-22] MEDS: Vancomycin HCl 2,000 MG in 0.9% Normal Saline (500mL Bag) 500 ML 250 MG IV (18:10)
[2023-03-22] MEDS: Furosemide 100 MG/10 ML Vial 60 MG IV (18:14)
[2023-03-22] MEDS: Pantoprazole Sodium 40 MG Tablet PO (18:16)
--- NOTE | 2023-03-22 18:36 | PCM.RX.CS ---
Consult Antibiotic Management Pharmacy has been consulted to manage selected antiobiotic: Vancomycin Type of Intervention Type of Consult: New start Suspected Infection Suspected Infection: Sepsis and Pneumonia Prior Doses of Antibiotics Prior Doses of Antibiotics Received/Current Regimen: Vancomycin 2000 mg IV given 03/22/23 @ 1810, also started on cefepime Labs Labs: Sodium 132 mmol/L (136-145) L 03/22/23 16:50 Potassium 3.7 mmol/L (3.5-5.1) 03/22/23 16:50 Chloride 98 mmol/L (98-107) 03/22/23 16:50 Carbon Dioxide 26.0 mmol/L (21.0-32.0) 03/22/23 16:50 Anion Gap 8 (5-15) 03/22/23 16:50 BUN 68 mg/dL (7-18) H 03/22/23 16:50 Creatinine 2.06 mg/dL (0.55-1.02) H 03/22/23 16:50 Est GFR (MDRD) Af Amer 30 mL/min (>60) L 03/22/23 16:50 Est GFR (MDRD) Non-Af 25 mL/min (>60) L 03/22/23 16:50 BUN/Creatinine Ratio 33.0 RATIO (10-20) H 03/22/23 16:50 Glucose 146 mg/dL (74-106) H 03/22/23 16:50 Microbiology Microbiology: Microbiology 03/22/23 11:35 Urine Catheter - Pineda Legionella Antigen - Final 03/22/23 11:35 Urine Catheter - Pineda Streptococcus pneumoniae Antigen (M - Final 03/22/23 11:40 Nasal Secretion SARS-CoV-2 & FLU Antigen (Rapid) - Final Dosing Weight Weight used for dosin.5 kg Estimated Creatinine Clearance Estimated Creatinine Clearance: 22 Goal Trough Goal Trough: 15-20 mcg/mL Pharmacy Plan for Drug Dosing Pharmacy Plan for Drug Dosing: Vancomycin 2000 mg IV x 1, then 1000 mg IV Q24H with trough prior to the 3rd dose Pharmacy Service will continue to monitor and adjust dosing as required. Follow-Up Labs Follow-Up Labs: Trough: Vancomycin Date/Time Labs Ordered Labs to be done on [date and time ordered]: 03/24/23 @ 6087
[2023-03-22 18:44] LABS: Bedside Glucose 142 mg/dL (74-106)
[2023-03-22] MEDS: Carvedilol 12.5 MG Tablet 37.5 MG PO (20:07)
[2023-03-22] MEDS: Heparin Injection (Vial) 5,000 UNIT/ML VIAL 5000 UNIT SC (20:08)
[2023-03-22 21:30] LABS: M R Staph aureus DNA By PCR Negative (Negative); Probe Check PASS; Specimen Processing Control PASS
--- NOTE | 2023-03-22 21:55 | RAD_ITS ---
INDICATION: pulmonary congestion EXAMINATION/TECHNIQUE: X-RAY - XR Chest 1 View COMPARISON: 03/22/2023 at 10:57 AM. FINDINGS: LINES/DEVICES: Right upper extremity PICC line with the tip at the superior vena cava/right atrial junction. LUNGS: Stable diffuse airspace opacities throughout the right lung. No evidence of a pleural effusion or a pneumothorax. Left lung remains clear. MEDIASTINUM AND CARDIOVASCULAR STRUCTURES: Cardiac silhouette is normal in size and contour. Mediastinum is unremarkable. BONES AND SOFT TISSUES: No acute abnormality. RAD/Chest 1 View (Portable) IMPRESSION: Stable diffuse right lung airspace opacities consistent with pneumonia. Electronically Signed: Emerson Hess DO at 22:27 EST ,
[2023-03-22] MEDS: Insulin Lispro 100 UNIT/ML INSULN.PEN SC (22:21)
[2023-03-22] MEDS: Albuterol 2.5 MG/3 ML VIAL.NEB. INHALATION (22:22)
[2023-03-22 22:45] LABS: Bedside Glucose 165 mg/dL (74-106)
[2023-03-22] MEDS: Lactated Ringers 1,000 ML 70 ML IV (22:58)
[2023-03-23] VITALS (31 sets, daily range): BP systolic 105–155; BP diastolic 38–69; PULSE 60–70; RESP 12–27; TEMP 35.9–36.4; O2SAT 88–100; BMI 44.0
[2023-03-23 04:42] LABS: Hematocrit 28.2 % (37-47); Hemoglobin 9.3 g/dL (12.0-15.0); Mean Corpuscular Hgb 28.9 pg (27.0-32.0); Mean Corpuscular Volume 87.6 fL (81-99); Mean Platelet Vol. 9.9 fl (6.2-12.0); POSITIVE COUNT YES; POSITIVE MORPHOLOGY YES; Platelet Count 191 K/mm3 (150-450); RBC Distribution Width CV 14.5 % (11.6-14.6); RBC Distribution Width SD 46.1 fl (35.1-43.9); Red Blood Count 3.22 M/mm3 (4.2-5.4); White Blood Count 18.1 K/mm3 (4.4-11.0)
[2023-03-23 04:44] LABS: Differential Indicated MANUAL DIFF
[2023-03-23 05:10] LABS: AST(SGOT) 42 U/L (15-37); Alanine Aminotransfer ALT/SGPT 26 U/L (13-56); Albumin, Serum 1.6 g/dL (3.2-5.0); Alkaline Phosphatase 69 U/L (45-117); Anion Gap 8 (5-15); BUN 67 mg/dL (7-18); BUN/Creat Ratio 37.2 RATIO (10-20); Bilirubin, Direct 0.23 mg/dL (0.00-0.30); Chloride 100 mmol/L (98-107); EST Glomerular Filtration Rate 29 mL/min (>60); Est Glom Filt Rate - Afr Amer 35 mL/min (>60); Globulin 4.7 g/dL (2.2-4.2); Glucose 145 mg/dL (74-106); Magnesium 2.3 mg/dL (1.6-2.6); Phosphorus 3.1 mg/dL (2.5-4.9); Potassium 2.9 mmol/L (3.5-5.1); Protein, Total 6.3 g/dL (6.4-8.2); Sodium Level 136 mmol/L (136-145); Thyroid Stim Hormone (TSH) 2.13 uIU/mL (0.358-3.74)
[2023-03-23 06:06] LABS: Hypochromasia 1+; Lymphocyte 1 % (19-41); Metamyelocyte 1 % (0-1); Monocyte 5 % (0-10); Neutrophil-Band 17 % (0-5); Neutrophil-Segmented 76 % (47-70); Platelet Estimate ADEQUATE (ADEQ); Total Cells Counted 100 (MANUAL DIFF)
[2023-03-23 06:07] LABS: Absolute Lymphocyte Count 0.18 X10^3/uL (0.83-4.51); Absolute Neutrophil Count 16.8 X10^3/uL (2.0-7.7); Lymphocyte # 0.18 X10^3/ul (0.83-4.51); Neutrophil # 16.82 X10^3/uL (2.7-7.7)
[2023-03-23] MEDS: Potassium Chloride Oral Tablet 20 MEQ 40 MEQ PO ×2 (07:26→16:30)
--- NOTE | 2023-03-23 08:02 | PCM.PN.HOSP ---
Reason for Visit Reason for Visit: Diagnoses Sepsis, unspecified organism (03/22/23) Pneumonia, unspecified organism (03/22/23) Acute respiratory failure with hypoxia (03/22/23) Acute kidney failure, unspecified (03/22/23) Subjective Subjective Patient is a 72-year-old lady with multiple comorbidities admitted with altered mental status, recurrent falls and progressive generalized weakness. Patient admitted to the intensive care unit where patient has since been managed Objective Data Objective Data Vital Signs: Vital Signs Temp Pulse Resp BP Pulse Ox O2 Del Method O2 Flow Rate 97.6 F L 62 21 H 129/47 H 92 Bi-pap 6 03/23/23 00:00 03/23/23 07:00 03/23/23 07:00 03/23/23 07:00 03/23/23 07:00 03/23/23 07:00 03/22/23 20:00 FiO2 21 03/23/23 07:00 Oxygen Flow Rate (L/min) 6 Oxygen Delivery Method Bi-pap Weight: 102.3 kg Body Mass Index (BMI) 44.0 Intake & Output: Intake and Output for Last 24 Hours 03/21/23 03/22/23 03/23/23 23:59 23:59 23:59 Intake Total 2515.17 / 2515.17 Output Total 1235 / 1500 1000 / 1000 Balance 1280.17 / 1015.17 -1000 / -1000 Lab / Micro Data 03/23/23 04:32 03/23/23 04:32 Labs: Laboratory Results - last 24 hr 03/22/23 09:50: WBC 17.0 H, RBC 3.80 L, Hgb 11.1 L, Hct 33.8 L, MCV 88.9, MCH 29.2, MCHC 32.8, RDW Std Deviation 46.1 H, RDW Coeff of Jackie 14.2, Plt Count 201, MPV 10.8, Neut % (Auto) Not Reportable, Absolute Neuts (auto) 16.3 H, Absolute Lymphs (auto) 0.51 L, Total Counted 100, Neutrophils % (Manual) 89 H, Band Neutrophils % 7 H, Lymphocytes % (Manual) 3 L, Monocytes % (Manual) 1, Diff Path Review August, Platelet Estimate ADEQUATE, RBC Morphology NORM C+C, PT 14.5, INR 1.1, APTT 26.3, Sodium 128 L, Potassium 3.6, Chloride 93 L, Carbon Dioxide 27.0, Anion Gap 8, BUN 75 H, Creatinine 2.41 H, Estim Creat Clear Calc 14.71, Est GFR (MDRD) Af Amer 25 L, Est GFR (MDRD) Non-Af 21 L, BUN/Creatinine Ratio 31.1 H, Glucose 164 H, Lactic Acid 1.6, Calcium 8.6, Total Bilirubin 0.60, Direct Bilirubin 0.28, AST 38 H, ALT 26, Alkaline Phosphatase 100, Total Creatine Kinase 495 H, Troponin I High Sens 28, B-Natriuretic Peptide 238.3 H, Total Protein 7.0, Albumin 1.9 L, Globulin 5.1 H, Lipase 11 L 03/22/23 11:35: Urine Color Yellow, Urine Clarity Sl. Cloudy, Urine pH 5.0, Ur Specific [place] 1.020, Urine Protein 30 H, Urine Glucose (UA) Normal, Urine Ketones 5 H, Urine Occult Blood 250 H, Urine Nitrite Negative, Urine Bilirubin Negative, Urine Urobilinogen Normal, Ur Leukocyte Esterase Negative, Urine RBC 25-50 SEEN, Urine WBC 0 SEEN, Ur Squamous Epith Cells 0-5 SEEN, Urine Bacteria 1+, Fine Granular Casts 0-5 SEEN, Urine Mucus 0 SEEN 03/22/23 16:50: Sodium 132 L, Potassium 3.7, Chloride 98, Carbon Dioxide 26.0, Anion Gap 8, BUN 68 H, Creatinine 2.06 H, Estim Creat Clear Calc 17.21, Est GFR (MDRD) Af Amer 30 L, Est GFR (MDRD) Non-Af 25 L, BUN/Creatinine Ratio 33.0 H, Glucose 146 H, Lactic Acid 1.0, Calcium 7.9 L 03/22/23 18:13: POC Glucose 142 H 03/22/23 19:00: MRSA (PCR) Negative 03/22/23 22:19: POC Glucose 165 H 03/23/23 04:32: WBC 18.1 H, RBC 3.22 L, Hgb 9.3 L, Hct 28.2 L, MCV 87.6, MCH 28.9, MCHC 33.0, RDW Std Deviation 46.1 H, RDW Coeff of Jackie 14.5, Plt Count 191, MPV 9.9, Neut % (Auto) Not Reportable, Absolute Neuts (auto) 16.8 H, Absolute Lymphs (auto) 0.18 L, Total Counted 100, Neutrophils % (Manual) 76 H, Band Neutrophils % 17 H, Lymphocytes % (Manual) 1 L, Monocytes % (Manual) 5, Metamyelocytes % 1, Diff Path Review May , Platelet Estimate ADEQUATE, Hypochromasia 1+, Sodium 136, Potassium 2.9 L, Chloride 100, Carbon Dioxide 28.0, Anion Gap 8, BUN 67 H, Creatinine 1.80 H, Estim Creat Clear Calc 19.70, Est GFR (MDRD) Af Amer 35 L, Est GFR (MDRD) Non-Af 29 L, BUN/Creatinine Ratio 37.2 H, Glucose 145 H, Calcium 8.0 L, Phosphorus 3.1, Magnesium 2.3, Total Bilirubin 0.50, Direct Bilirubin 0.23, AST 42 H, ALT 26, Alkaline Phosphatase 69, Total Protein 6.3 L, Albumin 1.6 L, Globulin 4.7 H, TSH 2.13 Micro: Microbiology 03/22/23 16:51 Mucosa - Nasopharyngeal - Final 03/22/23 11:35 Urine Catheter - Pineda Legionella Antigen - Final 03/22/23 11:35 Urine Catheter - Pineda Streptococcus pneumoniae Antigen (M - Final 03/22/23 11:40 Nasal Secretion SARS-CoV-2 & FLU Antigen (Rapid) - Final ABG Data ABG results: ABG 03/22/23 13:13 Specimen Type ART Sample Site R Brach pH 7.39 Bicarbonate Actual 23.4 Total CO2 25 Base Excess -2 O2 Saturation 95 O2 % 50.0 ABG pCO2 38.8 ABG pO2 77 [facility] Test Positive Respiration Rate 12 O2 Delivery Device BiPAP Vent Mode Not entered Radiography Diagnostic Testing: Radiology Impression Brain CT 03/22/23 10:08 IMPRESSION: Chronic involutional changes of the brain. Electronically Signed: Toi Euceda MD at 11:21 EST , Chest X-Ray 03/22/23 10:08 IMPRESSION: Pneumonitis involving the right hemithorax as described. Pneumonitis associated with Covid should be ruled out. Electronically Signed: Toi Euceda MD at 11:27 EST , Facial/Sinus 03/22/23 10:08 IMPRESSION: Normal unenhanced CT of the facial bones. Electronically Signed: Toi Euceda MD at 11:22 EST , Renal Ultrasound 03/22/23 15:44 IMPRESSION: No hydronephrosis or urinary calculi. Bilateral increased renal cortical echogenicity compatible with medical renal disease. Electronically Signed: Manpreet Barron MD at 20:38 EST , Chest X-Ray 03/22/23 21:55 IMPRESSION: Stable diffuse right lung airspace opacities consistent with pneumonia. Electronically Signed: Emerson Hess DO at 22:27 EST , Physical Exam Narrative GENERAL patient appears ill looking, on BiPAP HEENT: Atraumatic; normocephalic EYES; Anicteric, Normal Conjunctiva NECK; supple, normal thyroid, RESPIRATORY: Diminished to auscultation, tachypneic CARDIOVASCULAR: Regular S1 S2, GI: soft, normoactive bowel sounds, : No Renal angle tenderness; EXTREMITIES: No edema, no clubbing, MUSCULOSKELETAL: no muscle wasting NEURO: Awake; no lateralizing signs. SKIN: Areas of ecchymosis on extremities PSYCH; Flat affect Assessment & Plan Assessment/Plan (1) Sepsis: QUALIFIERS: Sepsis type: sepsis due to unspecified organism (2) Pneumonia: (3) Acute hypoxemic respiratory failure: (4) Acute renal failure: PLAN: Plan Patient is a 72-year-old lady with multiple comorbidities admitted with altered mental status, recurrent falls and progressive generalized weakness 1. Acute metabolic encephalopathy ? Multifactorial including hypoxic respiratory failure from pneumonia, acute kidney injury as well as rhabdomyolysis admitted to the intensive care unit for treatment of the underlying clinical condition ? 03/23/2023; patient remains in intensive care unit 2. Acute hypoxic respiratory failure ? Evidenced by tachypnea and use of accessory muscles in breathing as well as hypoxia. Patient had to be placed on noninvasive ventilation BiPAP and admitted to the intensive care unit with consultation placed to laminating machine feeder/jammer operator ? 03/23/2023. Patient has been weaned off BiPAP 3. Sepsis ? Secondary to pneumonia evidence of sepsis (presence of an infection pneumonia, leukocytosis, tachypnea with respiratory rate of 25 and evidence of endorgan dysfunction respiratory failure as well as acute kidney injury). Patient treated with broad-spectrum antibiotic therapy after cultures have been sent patient was resuscitated with fluids patient did not receive 30ml/kg due to risk of congestive heart failure ? 03/23/2023 patient WBC count still remains elevated 4. Pneumonia with suspected MDR's ? Patient was started on broad-spectrum antibiotic therapy admitted to the intensive care unit management as discussed 5. Acute kidney injury ? Superimposed on chronic kidney disease stage III patient on fluids with subsequent monitoring of electrolytes ordered ? 03/23/2023 creatinine down to 1.80 from 2.06 on admission 6. Hypokalemia ? Corrected per protocol repeat labs ordered for a.m. 7. Acute rhabdomyolysis ? Secondary to prolonged period of immobilization 8. Chronic kidney disease stage III ? Baseline creatinine 1.35-1.5 patient presented with acute kidney injury management as discussed above 9. Coronary artery disease ? With previous single-vessel CABG. Patient is on guideline directed medical therapy 9. Essential hypertension ? Patient blood pressure relatively on the low side patient antihypertensives held 10. Hyponatremia ? Suspected to be secondary to hypovolemic hyponatremia do expect improvement with fluid resuscitation daily BMPs ordered for monitoring 11. Diabetes mellitus type II -patient's oral hypoglycemics held. Placed on long acting insulin, Accu-Cheks a.c. and at bedtime and covered with sliding scale insulin 12. Physical deconditioning - Requested for PT OT eval and healthcare social worker to assist with discharge planning 13. Class III obesity with BMI of 45 ? Complicating care weight loss advised 14. DVT prophylaxis ? SC heparin Time spent in the patient's overall evaluation,decision-making process, review of diagnostic data, adjustment of management, discussion with other providers, nursing nursing and ancillary staff involved in patient's care documentation, 55 minutes Charges/Coding Visit Charges Inpatient E&M: 71177 Subs Hosp L3
--- NOTE | 2023-03-23 08:37 | PN.CC_ITS ---
Assessment & Plan Assessment/Plan (1) Acute hypoxemic respiratory failure: (2) Acute renal failure: QUALIFIERS: Acute renal failure type: with acute tubular necrosis Qualified Code(s): N17.0 - Acute kidney failure with tubular necrosis (3) Pneumonia: QUALIFIERS: Laterality: right Lung location: lower lobe of lung (4) Sepsis: QUALIFIERS: Sepsis type: sepsis due to unspecified organism Kyleigh re sepsis acute organ dysfunction type: acute respiratory failure Acute re spiratory failure type: with hypoxia Severe sepsis shock status: without septic shock Sepsis acute organ dysfunction status: with acute organ dysfunction Qualified Code(s): A41.9 - Sepsis, unspecified organism; R65.20 - Severe sepsis without septic shock; J96.01 - Acute respiratory failure with hypoxia PLAN: Plan RECOMMENDATIONS: 1. BiPAP breaks as tolerated 2. Continue empiric antibiotics pending cultures 3. Bedside swallow evaluation before p.o. intake 4. Electrolyte supplementation as necessary 5. Increase activity as tolerated IMPRESSIONS: 1. Acute hypoxic respiratory failure/sepsis secondary to right lower lobe pneumonia Unclear sequence of events. Patient does have a right lower lobe infiltrate, so aspiration would be a concern. Patient did have a fall with mild rhabdo. Patient did appear to be volume overloaded and received some Lasix yesterday with good response. Patient is having significant oxygen requirements on presentation that have improved rapidly following BiPAP and Lasix, indicating a possible component of CHF. Okay to take BiPAP breaks as tolerated. Would still continue this with sleep as patient is at high risk for sleep apnea given body habitus. Viral workup has been negative. 2. Acute kidney injury on CKD Patient with some improvement in renal function. Baseline appears to be approximately 1.4 and she presented with a creatinine of 2.4. Patient is down to 1.8 this morning and doing well. Patient does have some hypokalemia, so this will be replaced. Clinical suspicion for prerenal etiology secondary to problem #1. Renal ultrasound is not showing any hydronephrosis at this time. 3. Fall with mild rhabdomyolysis secondary to problem #1 Unclear etiology for the fall. Patient will be evaluated by PT and OT. Patient has not received significant volume resuscitation secondary to concerns for congestive heart failure. Renal function continues to improve. Likely not necessary to alkalize urine. 4. Hypertension/morbid obesity/possible CHF Complicates care, management, recovery and prognosis. Blood pressure is up a little bit at this time, but some BP meds have been held. Echocardiogram has been ordered to quantify heart function. Patient on appropriate prophylaxis. TIME: 32 minutes critical care time spent addressing patient's hypoxic respiratory failure, acute kidney injury, rhabdomyolysis, possible CHF, review of all data and collaboration with care team Subjective Subjective Patient did okay overnight. Patient did have to be placed on BiPAP secondary to respiratory muscle fatigue. Patient responded well and oxygen requirements have improved. Patient subjectively does not feel better compared to yesterday. Patient is still having intermittent cough. Objective Data Objective Data Vital Signs: Vital Signs Temp Pulse Resp BP Pulse Ox O2 Del Method O2 Flow Rate 36.4 C L 70 27 H 134/62 H 96 Nasal Cannula 2 03/23/23 08:36 03/23/23 08:36 03/23/23 08:36 03/23/23 08:36 03/23/23 08:36 03/23/23 08:36 03/23/23 08:36 FiO2 21 03/23/23 07:00 Oxygen Flow Rate (L/min) 2 Oxygen Delivery Method Nasal Cannula Weight: 102.3 kg Body Mass Index (BMI) 44.0 Intake & Output: Intake and Output for Last 24 Hours 03/21/23 03/22/23 03/23/23 23:59 23:59 23:59 Intake Total 2515.17 / 2515.17 Output Total 1235 / 1500 1000 / 1000 Balance 1280.17 / 1015.17 -1000 / -1000 Lab / Micro Data Attestation: I reviewed the patient's lab results. 03/23/23 04:32 03/23/23 04:32 Labs: Laboratory Results - last 24 hr 03/22/23 09:50: WBC 17.0 H, RBC 3.80 L, Hgb 11.1 L, Hct 33.8 L, MCV 88.9, MCH 29.2, MCHC 32.8, RDW Std Deviation 46.1 H, RDW Coeff of Jackie 14.2, Plt Count 201, MPV 10.8, Neut % (Auto) Not Reportable, Absolute Neuts (auto) 16.3 H, Absolute Lymphs (auto) 0.51 L, Total Counted 100, Neutrophils % (Manual) 89 H, Band Neutrophils % 7 H, Lymphocytes % (Manual) 3 L, Monocytes % (Manual) 1, Diff Path Review August, Platelet Estimate ADEQUATE, RBC Morphology NORM C+C, PT 14.5, INR 1.1, APTT 26.3, Sodium 128 L, Potassium 3.6, Chloride 93 L, Carbon Dioxide 27.0, Anion Gap 8, BUN 75 H, Creatinine 2.41 H, Estim Creat Clear Calc 14.71, Est GFR (MDRD) Af Amer 25 L, Est GFR (MDRD) Non-Af 21 L, BUN/Creatinine Ratio 31.1 H, Glucose 164 H, Lactic Acid 1.6, Calcium 8.6, Total Bilirubin 0.60, Direc t Bilirubin 0.28, AST 38 H, ALT 26, Alkaline Phosphatase 100, Total Creatine Kinase 495 H, Troponin I High Sens 28, B-Natriuretic Peptide 238.3 H, Total Protein 7.0, Albumin 1.9 L, Globulin 5.1 H, Lipase 11 L 03/22/23 11:35: Urine Color Yellow, Urine Clarity Sl. Cloudy, Urine pH 5.0, Ur Specific [place] 1.020, Urine Protein 30 H, Urine Glucose (UA) Normal, Urine Ketones 5 H, Urine Occult Blood 250 H, Urine Nitrite Negative, Urine Bilirubin Negative, Urine Urobilinogen Normal, Ur Leukocyte Esterase Negative, Urine RBC 25-50 SEEN, Urine WBC 0 SEEN, Ur Squamous Epith Cells 0-5 SEEN, Urine Bacteria 1+, Fine Granular Casts 0-5 SEEN, Urine Mucus 0 SEEN 03/22/23 16:50: Sodium 132 L, Potassium 3.7, Chloride 98, Carbon Dioxide 26.0, Anion Gap 8, BUN 68 H, Creatinine 2.06 H, Estim Creat Clear Calc 17.21, Est GFR (MDRD) Af Amer 30 L, Est GFR (MDRD) Non-Af 25 L, BUN/Creatinine Ratio 33.0 H, Glucose 146 H, Lactic Acid 1.0, Calcium 7.9 L 03/22/23 18:13: POC Glucose 142 H 03/22/23 19:00: MRSA (PCR) Negative 03/22/23 22:19: POC Glucose 165 H 03/23/23 04:32: WBC 18.1 H, RBC 3.22 L, Hgb 9.3 L, Hct 28.2 L, MCV 87.6, MCH 28.9, MCHC 33.0, RDW Std Deviation 46.1 H, RDW Coeff of Jackie 14.5, Plt Count 191, MPV 9.9, Neut % (Auto) Not Reportable, Absolute Neuts (auto) 16.8 H, Absolute Lymphs (auto) 0.18 L, Total Counted 100, Neutrophils % (Manual) 76 H, Band Neutrophils % 17 H, Lymphocytes % (Manual) 1 L, Monocytes % (Manual) 5, Metamyelocytes % 1, Diff Path Review August, Platelet Estimate ADEQUATE, Hypochromasia 1+, Sodium 136, Potassium 2.9 L, Chloride 100, Carbon Dioxide 28.0, Anion Gap 8, BUN 67 H, Creatinine 1.80 H, Estim Creat Clear Calc 19.70, Est GFR (MDRD) Af Amer 35 L, Est GFR (MDRD) Non-Af 29 L, BUN/Creatinine Ratio 37.2 H, Glucose 145 H, Calcium 8.0 L, Phosphorus 3.1, Magnesium 2.3, Total Bili goodwin 0.50, Direct Bilirubin 0.23, AST 42 H, ALT 26, Alkaline Phosphatase 69, Total Protein 6.3 L, Albumin 1.6 L, Globulin 4.7 H, TSH 2.13 Micro: Microbiology 03/22/23 16:51 Mucosa - Nasopharyngeal - Final 03/22/23 11:35 Urine Catheter - Pineda Legionella Antigen - Final 03/22/23 11:35 Urine Catheter - Pineda Streptococcus pneumoniae Antigen (M - Final 03/22/23 11:40 Nasal Secretion SARS-CoV-2 & FLU Antigen (Rapid) - Final ABG Data ABG results: ABG 03/22/23 13:13 Specimen Type ART Sample Site R Brach pH 7.39 Bicarbonate Actual 23.4 Total CO2 25 Base Excess -2 O2 Saturation 95 O2 % 50.0 ABG pCO2 38.8 ABG pO2 77 [facility] Test Positive Respiration Rate 12 O2 Delivery Device BiPAP Vent Mode Not entered Radiography Diagnostic Testing: Radiology Impression Brain CT 03/22/23 10:08 IMPRESSION: Chronic involutional changes of the brain. Electronically Signed: Toi Euceda MD at 11:21 EST , Chest X-Ray 03/22/23 10:08 IMPRESSION: Pneumonitis involving the right hemithorax as described. Pneumonitis associated with Covid should be ruled out. Electronically Signed: Toi Euceda MD at 11:27 EST , Facial/Sinus 03/22/23 10:08 IMPRESSION: Normal unenhanced CT of the facial bones. Electronically Signed: Toi Euceda MD at 11:22 EST , Renal Ultrasound 03/22/23 15:44 IMPRESSION: No hydronephrosis or urinary calculi. Bilateral increased renal cortical echogenicity compatible with medical renal disease. Electronically Signed: Manpreet Barron MD at 20:38 EST , Chest X-Ray 03/22/23 21:55 IMPRESSION: Stable diffuse right lung airspace opacities consistent with pneumonia. Electronically Signed: Emerson Hess DO at 22:27 EST , Physical Exam Const alert Constitutional Narrative: Good BiPAP synchrony. Morbidly obese. Interacting appropriately. HEENT normocephalic and head/scalp atraumatic HEENT Narrative: Dry mucous membranes Eyes PERRL, EOMs intact bilaterally and conjunctivae normal Eyes Narrative: No scleral icterus or injection noted Neck full ROM and supple Chest inspection of chest normal Resp Resp Narrative: Good BiPAP synchrony. Able to vocalize due to BiPAP Auscultation: rhonchi right upper and right lower and diminished lung sounds; Negative for rales or wheezes Cardio regular rate, regular rhythm, S1 normal heart sound, S2 normal heart sound, no murmurs, no rub and no gallops GI normal to inspection, nondistended, normoactive bowel sounds Extremity General Extremity: edema; Negative for clubbing Skin no rashes or lesions noted Neuro CN's II-XII intact bilaterally and moves all extremities Psych Mood & Affect: flat affect Charges/Coding Procedures Hospitalists Procedures: 87666 Critial Care 1st Hr
[2023-03-23] MEDS: Acetaminophen 500 MG Tablet 1000 MG PO ×2 (11:06→18:21)
[2023-03-23] MEDS: Insulin Glargine-YFGN 100 UNIT/ML Pen 10 UNIT SC (11:08)
[2023-03-23] MEDS: Carvedilol 12.5 MG Tablet 37.5 MG PO ×2 (11:08→20:33)
[2023-03-23] MEDS: Clopidogrel Bisulfate 75 MG Tablet PO (11:09)
[2023-03-23] MEDS: Aspirin E.C. 81 MG Tablet PO (11:09)
[2023-03-23] MEDS: Pantoprazole Sodium 40 MG Tablet PO (11:09)
[2023-03-23] MEDS: Heparin Injection (Vial) 5,000 UNIT/ML VIAL 5000 UNIT SC ×2 (11:09→20:33)
[2023-03-23] MEDS: Cefepime HCl 2 GM in 0.9% Normal Saline (100mL MB+) 100 ML IV (11:09)
[2023-03-23] MEDS: 0.9% Saline Lock 10 ML Syringe IV (11:10)
[2023-03-23] MEDS: Insulin Lispro 100 UNIT/ML INSULN.PEN SC ×3 (11:17→20:34)
[2023-03-23 11:44] LABS: Bedside Glucose 159 mg/dL (74-106)
[2023-03-23 13:11] LABS: Pathologist Review Reviewed
[2023-03-23 13:54] LABS: Pathologist Review Reviewed
--- NOTE | 2023-03-23 15:20 | CASEMGMT ---
KELLI DOS SANTOS Assessment: Face to Face with pt for initial transition planning/care coordination assessment. KELLI DOS SANTOS introduced self and role at [facility], pt voices understanding and consents to assessment. Pt is A&O x4 and answers all questions appropriately at this time. Pt sitting in chair with oxygen on and sister in room. Care providers, pharmacy, and demographics verified/updated. Admitting Dx: acute metabolic encephalopathy PCP:Mary Specialists:Josef, cardio; cristiana Mckenna; David pulclemente Preferred Pharmacy: [facility] Insurance: [facility], [place] Prescription Benefit: yes LNOK: Jacquelyn Salazar, sister Living Arrangements: Pt lives alone in a duplex with her sister on the other side. There are 2 steps to enter on the front porch. Pt reports she is I in ADL's and sister does laundry, otherwise pt indep in IADL's. Pt denies concerns at home. Transportation: Pt drives self and denies concerns with transportation. DME:hand rails at toilet, cane- using prior to admission; walker, nebulizer, grab bar in the tub, shower bench HHC/SNF: No hx of [place] but has been to [facility] and [place] Pt states no concerns with going home at time of dc. Pt states she does not feel she will need any services homegoing. Pt states no further concerns/needs. CM to follow therapy and for oxygen. Advised pt to ask CM if any further question/concerns/needs arise, voices understanding. Pt Goal: Home Plan: Home, follow therapy and for home oxygen
[2023-03-23 16:48] LABS: Bedside Glucose 183 mg/dL (74-106)
[2023-03-23] MEDS: Vancomycin IV 1,000 MG/200 ML BAG 200 MG IV (18:21)
[2023-03-23] MEDS: Ipratropium/Albuterol Sulfate 3 ML AMPUL.NEB INHALATION (19:24)
[2023-03-23 20:58] LABS: Bedside Glucose 192 mg/dL (74-106)
[2023-03-24] VITALS (15 sets, daily range): BP systolic 124–166; BP diastolic 51–116; PULSE 56–65; RESP 12–26; TEMP 36.1–36.6; O2SAT 95–98; BMI 44.1
[2023-03-24] MEDS: Acetaminophen 500 MG Tablet 1000 MG PO ×3 (02:31→22:42)
[2023-03-24] MEDS: traMADol 50 MG Tablet PO ×2 (04:01→14:18)
[2023-03-24] MEDS: 0.9% Saline Lock 10 ML Syringe IV ×2 (04:02→16:08)
[2023-03-24 04:14] LABS: Hematocrit 29.5 % (37-47); Hemoglobin 9.7 g/dL (12.0-15.0); Mean Corp Hgb Conc 32.9 g/dL (32-36); Mean Corpuscular Hgb 28.9 pg (27.0-32.0); Mean Corpuscular Volume 87.8 fL (81-99); Mean Platelet Vol. 9.7 fl (6.2-12.0); POSITIVE COUNT YES; POSITIVE MORPHOLOGY YES; Platelet Count 228 K/mm3 (150-450); RBC Distribution Width CV 14.8 % (11.6-14.6); RBC Distribution Width SD 47.7 fl (35.1-43.9); Red Blood Count 3.36 M/mm3 (4.2-5.4); White Blood Count 14.6 K/mm3 (4.4-11.0)
[2023-03-24 04:26] LABS: Differential Indicated MANUAL DIFF
[2023-03-24 04:28] LABS: Anion Gap 5 (5-15); BUN 61 mg/dL (7-18); BUN/Creat Ratio 41.2 RATIO (10-20); Calcium,Total 8.5 mg/dL (8.5-10.1); Chloride 106 mmol/L (98-107); Creatinine, Serum 1.48 mg/dL (0.55-1.02); EST Glomerular Filtration Rate 37 mL/min (>60); Est Glom Filt Rate - Afr Amer 44 mL/min (>60); Estimated Creatinine Clearance 23.95 ml/min; Glucose 160 mg/dL (74-106); Potassium 3.6 mmol/L (3.5-5.1); Sodium Level 139 mmol/L (136-145)
[2023-03-24 05:34] LABS: Eosinophil 2 % (0-5); Lymphocyte 6 % (19-41); Metamyelocyte 2 % (0-1); Monocyte 7 % (0-10); Myelocyte 3 % (0-0); Neutrophil-Segmented 80 % (47-70); Total Cells Counted 100 (MANUAL DIFF)
[2023-03-24 05:36] LABS: Absolute Lymphocyte Count 0.87 X10^3/uL (0.83-4.51); Absolute Neutrophil Count 11.7 X10^3/uL (2.0-7.7)
[2023-03-24 05:37] LABS: Platelet Estimate ADEQUATE (ADEQ); Target Cells RARE
--- NOTE | 2023-03-24 07:15 | PCM.PN.INT ---
Assessment & Plan Assessment/Plan (1) Acute hypoxemic respiratory failure: (2) Acute renal failure: QUALIFIERS: Acute renal failure type: with acute tubular necrosis Qualified Code(s): N17.0 - Acute kidney failure with tubular necrosis (3) Pneumonia: QUALIFIERS: Laterality: right Lung location: lower lobe of lung (4) Sepsis: QUALIFIERS: Sepsis type: sepsis due to unspecified organism Sepsis acute organ dysfunction status: with acute organ dysfunction Severe sepsis acute organ dysfunction type: acute respiratory failure Acute respiratory failure type: with hypoxia Severe sepsis shock status: without septic shock Qualified Code(s): A41.9 - Sepsis, unspecified organism; R65.20 - Severe sepsis without septic shock; J96.01 - Acute respiratory failure with hypoxia PLAN: Plan RECOMMENDATIONS: 1. Encourage BiPAP with sleep 2. Continue empiric antibiotics pending cultures 3. Initiate low-salt diet 4. Electrolyte supplementation as necessary 5. Increase activity as tolerated 6. Okay to leave the intensive care unit from my perspective IMPRESSIONS: 1. Acute hypoxic respiratory failure/sepsis secondary to right lower lobe pneumonia Unclear sequence of events. Patient does have a right lower lobe infiltrate, so aspiration would be a concern. If cultures are negative at 48 hours, could transition to aspiration coverage. Patient did have a fall with mild rhabdo. Patient did appear to be volume overloaded and received some Lasix on admission with good response. Patient is having significant oxygen requirements on presentation that have improved rapidly following BiPAP and Lasix, indicating a possible component of CHF. High clinical suspicion for RYAN concomitantly, so would recommend BiPAP with sleep. Viral workup has been negative. Okay to leave the intensive care unit from my perspective 2. Acute kidney injury on CKD Resolved. Patient with some improvement in renal function. Baseline appears to be approximately 1.4 and she presented with a creatinine of 2.4. Patient is down to 1.5 this morning and doing well. Monitor electrolytes with repletion as necessary. Clinical suspicion for prerenal etiology secondary to problem #1. Renal ultrasound is not showing any hydronephrosis at this time. 3. Fall with mild rhabdomyolysis secondary to problem #1 Unclear etiology for the fall. Patient will be evaluated by PT and OT. Patient has not received significant volume resuscitation secondary to concerns for congestive heart failure. Renal function continues to improve. Likely not necessary to alkalize urine. 4. Hypertension/morbid obesity/possible CHF Complicates care, management, recovery and prognosis. Blood pressure is up a little bit at this time, but some BP meds have been held. Okay to reinitiate baseline medications in a stepwise fashion. Echocardiogram has preserved ejection fraction with some valvular abnormalities. Patient on appropriate prophylaxis. Subjective Subjective Patient did okay overnight. Patient is requiring 2 L to maintain saturations and refused BiPAP overnight. Patient overall feels subjectively slightly improved, but is still complaining of back pain. Patient did feel that getting to the chair was helpful for this condition. Objective Data Objective Data Vital Signs: Vital Signs Temp Pulse Resp BP Pulse Ox O2 Del Method O2 Flow Rate 36.2 C L 59 L 21 H 141/54 H 96 Nasal Cannula 2 03/24/23 04:00 03/24/23 06:00 03/24/23 06:00 03/24/23 06:00 03/24/23 06:00 03/24/23 06:00 03/24/23 06:00 FiO2 21 03/24/23 01:59 Oxygen Flow Rate (L/min) 2 Oxygen Delivery Method Nasal Cannula Weight: 102.4 kg Body Mass Index (BMI) 44.1 Intake & Output: Intake and Output for Last 24 Hours 03/22/23 03/23/23 03/24/23 23:59 23:59 23:59 Intake Total 2515.17 / 2515.17 1023.33 / 1023.33 Output Total 1235 / 1500 1700 / 2300 1100 / 1100 Balance 1280.17 / 1015.17 -676.67 / -1276.67 -1100 / -1100 Lab / Micro Data Attestation: I reviewed the patient's lab results. 03/24/23 04:05 03/24/23 04:05 Labs: Laboratory Results - last 24 hr 03/22/23 09:50: Diff Path Review Reviewed 03/23/23 04:32: Diff Path Review Reviewed 03/23/23 11:17: POC Glucose 159 H 03/23/23 16:29: POC Glucose 183 H 03/23/23 20:33: POC Glucose 192 H 03/24/23 04:05: WBC 14.6 H, RBC 3.36 L, Hgb 9.7 L, Hct 29.5 L, MCV 87.8, MCH 28.9, MCHC 32.9, RDW Std Deviation 47.7 H, RDW Coeff of Jackie 14.8 H, Plt Count 228, MPV 9.7, Neut % (Auto) Not Reportable, Absolute Neuts (auto) 11.7 H, Absolute Lymphs (auto) 0.87, Total Counted 100, Neutrophils % (Manual) 80 H, Lymphocytes % (Manual) 6 L, Monocytes % (Manual) 7, Eosinophils % (Manual) 2, Metamyelocytes % 2 H, Myelocytes % 3 H, Diff Path Review May foll, Platelet Estimate ADEQUATE, Target Cells RARE, Sodium 139, Potassium 3.6, Chloride 106, Carbon Dioxide 28.0, Anion Gap 5, BUN 61 H, Creatinine 1.48 H, Estim Creat Clear Calc 23.95, Est GFR (MDRD) Af Amer 44 L, Est GFR (MDRD) Non-Af 37 L, BUN/Creatinine Ratio 41.2 H, Glucose 160 H, Calcium 8.5 Micro: Microbiology 03/22/23 16:51 Mucosa - Nasopharyngeal - Final 03/22/23 11:35 Urine Catheter - Pineda Legionella Antigen - Final 03/22/23 11:35 Urine Catheter - Pineda Streptococcus pneumoniae Antigen (M - Final 03/22/23 11:40 Nasal Secretion SARS-CoV-2 & FLU Antigen (Rapid) - Final Radiography Diagnostic Testing: Radiology Impression Echocardiogram 03/22/23 15:49 Interpretation Summary The left ventricular ejection fraction is 65 %. Mitral annuloplasty ring versus severe mitral annular calcification. Mild (1+) mitral valve insufficiency. Mild-Moderate mitral valve stenosis. 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 Ordering Physician: Lucille Jauregui Performed By: Ashok Torre RCS Physical Exam Const alert and oriented x3 Constitutional Narrative: Mild conversational dyspnea. Morbidly obese. HEENT normocephalic and head/scalp atraumatic Eyes PERRL, EOMs intact bilaterally and conjunctivae normal Eyes Narrative: No scleral icterus or injection noted Neck full ROM and supple Chest inspection of chest normal Resp Resp Narrative: Refusing BiPAP at this time Auscultation: diminished lung sounds; Negative for rales, rhonchi or wheezes Cardio regular rate, regular rhythm, S1 normal heart sound, S2 normal heart sound, no murmurs, no rub and no gallops GI normal to inspection, nondistended, normoactive bowel sounds Extremity General Extremity: edema; Negative for clubbing Skin no rashes or lesions noted Neuro CN's II-XII intact bilaterally and moves all extremities Psych Mood & Affect: flat affect Charges/Coding Visit Charges Inpatient E&M: 16943 Subs Hosp L3
--- NOTE | 2023-03-24 07:51 | PCM.PN.HOSP ---
Reason for Visit Reason for Visit: Diagnoses Sepsis, unspecified organism (03/24/23) Pneumonia, unspecified organism (03/24/23) Acute respiratory failure with hypoxia (03/24/23) Acute kidney failure with tubular necrosis (03/24/23) Acute kidney failure, unspecified (03/24/23) Severe sepsis without septic shock (03/24/23) Subjective Subjective Patient WBC count trending down creatinine down to 1.42. Plan is to transfer patient from the intensive care unit to PCU. Patient apparently refused to wear BiPAP during the night. Objective Data Objective Data Vital Signs: Vital Signs Temp Pulse Resp BP Pulse Ox O2 Del Method O2 Flow Rate 97.2 F L 59 L 21 H 141/54 H 96 Nasal Cannula 2 03/24/23 04:00 03/24/23 06:00 03/24/23 06:00 03/24/23 06:00 03/24/23 06:00 03/24/23 06:00 03/24/23 06:00 FiO2 21 03/24/23 01:59 Oxygen Flow Rate (L/min) 2 Oxygen Delivery Method Nasal Cannula Weight: 102.4 kg Body Mass Index (BMI) 44.1 Intake & Output: Intake and Output for Last 24 Hours 03/22/23 03/23/23 03/24/23 23:59 23:59 23:59 Intake Total 2515.17 / 2515.17 1023.33 / 1023.33 Output Total 1235 / 1500 1700 / 2300 1100 / 1100 Balance 1280.17 / 1015.17 -676.67 / -1276.67 -1100 / -1100 Lab / Micro Data 03/24/23 04:05 03/24/23 04:05 Labs: Laboratory Results - last 24 hr 03/22/23 09:50: Diff Path Review Reviewed 03/23/23 04:32: Diff Path Review Reviewed 03/23/23 11:17: POC Glucose 159 H 03/23/23 16:29: POC Glucose 183 H 03/23/23 20:33: POC Glucose 192 H 03/24/23 04:05: WBC 14.6 H, RBC 3.36 L, Hgb 9.7 L, Hct 29.5 L, MCV 87.8, MCH 28.9, MCHC 32.9, RDW Std Deviation 47.7 H, RDW Coeff of Jackie 14.8 H, Plt Count 228, MPV 9.7, Neut % (Auto) Not Reportable, Absolute Neuts (auto) 11.7 H, Absolute Lymphs (auto) 0.87, Total Counted 100, Neutrophils % (Manual) 80 H, Lymphocytes % (Manual) 6 L, Monocytes % (Manual) 7, Eosinophils % (Manual) 2, Metamyelocytes % 2 H, Myelocytes % 3 H, Diff Path Review May foll, Platelet Estimate ADEQUATE, Target Cells RARE, Sodium 139, Potassium 3.6, Chloride 106, Carbon Dioxide 28.0, Anion Gap 5, BUN 61 H, Creatinine 1.48 H, Estim Creat Clear Calc 23.95, Est GFR (MDRD) Af Amer 44 L, Est GFR (MDRD) Non-Af 37 L, BUN/Creatinine Ratio 41.2 H, Glucose 160 H, Calcium 8.5 Micro: Microbiology 03/22/23 16:51 Mucosa - Nasopharyngeal - Final 03/22/23 11:35 Urine Catheter - Pineda Legionella Antigen - Final 03/22/23 11:35 Urine Catheter - Pineda Streptococcus pneumoniae Antigen (M - Final 03/22/23 11:40 Nasal Secretion SARS-CoV-2 & FLU Antigen (Rapid) - Final Radiography Diagnostic Testing: Radiology Impression Echocardiogram 03/22/23 15:49 Interpretation Summary The left ventricular ejection fraction is 65 %. Mitral annuloplasty ring versus severe mitral annular calcification. Mild (1+) mitral valve insufficiency. Mild-Moderate mitral valve stenosis. 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 Ordering Physician: Lucille Jauregui Performed By: Ashok Torre RCS Physical Exam Narrative GENERAL patient appears ill looking, HEENT: Atraumatic; normocephalic EYES; Anicteric, Normal Conjunctiva NECK; supple, normal thyroid, RESPIRATORY: Diminished to auscultation, CARDIOVASCULAR: Regular S1 S2, GI: soft, normoactive bowel sounds, : No Renal angle tenderness; EXTREMITIES: No edema, no clubbing, MUSCULOSKELETAL: no muscle wasting NEURO: Awake; no lateralizing signs. SKIN: Areas of ecchymosis on extremities PSYCH; Flat affect Assessment & Plan Assessment/Plan (1) Sepsis: QUALIFIERS: Acute respiratory failure type: with hypoxia Sepsis acute organ dysfunction status: with acute organ dysfunction Sepsis type: sepsis due to unspecified organism Severe sepsis acute organ dysfunction type: acute respiratory failure Severe sepsis shock status: without septic shock Qualified Code(s): A41.9 - Sepsis, unspecified organism; R65.20 - Severe sepsis without septic shock; J96.01 - Acute respiratory failure with hypoxia (2) Pneumonia: QUALIFIERS: Laterality: right Lung location: lower lobe of lung (3) Acute hypoxemic respiratory failure: (4) Acute renal failure: QUALIFIERS: Acute renal failure type: with acute tubular necrosis Qualified Code(s): N17.0 - Acute kidney failure with tubular necrosis PLAN: Plan Patient is a 72-year-old lady with multiple comorbidities admitted with altered mental status, recurrent falls and progressive generalized weakness 1. Acute metabolic encephalopathy ? Multifactorial including hypoxic respiratory failure from pneumonia, acute kidney injury as well as rhabdomyolysis admitted to the intensive care unit for treatment of the underlying clinical condition ? 03/23/2023; patient remains in intensive care unit ? 03/24/2023 patient level of sensorium improving. 2. Acute hypoxic respiratory failure ? Evidenced by tachypnea and use of accessory muscles in breathing as well as hypoxia. Patient had to be placed on noninvasive ventilation BiPAP and admitted to the intensive care unit with consultation placed to regulatory product manager/silo painter ? 03/23/2023. Patient has been weaned off BiPAP ? 03/24/2023 patient refused to wear BiPAP during the night 3. Sepsis ? Secondary to pneumonia evidence of sepsis (presence of an infection pneumonia, leukocytosis, tachypnea with respiratory rate of 25 and evidence of endorgan dysfunction respiratory failure as well as acute kidney injury). Patient treated with broad-spectrum antibiotic therapy after cultures have been sent patient was resuscitated with fluids patient did not receive 30ml/kg due to risk of congestive heart failure ? 03/23/2023 patient WBC count still remains elevated ? 03/24/2023 cultures so far negative to date, WBC count trending down 4. Pneumonia with suspected MDR's ? Patient was started on broad-spectrum antibiotic therapy admitted to the intensive care unit management as discussed 5. Acute kidney injury ? Superimposed on chronic kidney disease stage III patient on fluids with subsequent monitoring of electrolytes ordered ? 03/23/2023 creatinine down to 1.80 from 2.06 on admission 6. Hypokalemia ? Corrected per protocol repeat labs ordered for a.m. 7. Acute rhabdomyolysis ? Secondary to prolonged period of immobilization 8. Chronic kidney disease stage III ? Baseline creatinine 1.35-1.5 patient presented with acute kidney injury management as discussed above 9. Coronary artery disease ? With previous single-vessel CABG. Patient is on guideline directed medical therapy 9. Essential hypertension ? Patient blood pressure relatively on the low side patient antihypertensives held 10. Hyponatremia ? Suspected to be secondary to hypovolemic hyponatremia do expect improvement with fluid resuscitation daily BMPs ordered for monitoring 11. Diabetes mellitus type II -patient's oral hypoglycemics held. Placed on long acting insulin, Accu-Cheks a.c. and at bedtime and covered with sliding scale insulin 12. Physical deconditioning - Requested for PT OT eval and aids social worker to assist with discharge planning 13. Class III obesity with BMI of 45 ? Complicating care weight loss advised 14. DVT prophylaxis ? SC heparin Time spent in the patient's overall evaluation,decision-making process, review of diagnostic data, adjustment of management, discussion with other providers, nursing nursing and ancillary staff involved in patient's care documentation, 50 minutes Charges/Coding Visit Charges Inpatient E&M: 83762 [facility] L3
[2023-03-24 09:45] LABS: Bedside Glucose 147 mg/dL (74-106)
[2023-03-24] MEDS: Insulin Glargine-YFGN 100 UNIT/ML Pen 10 UNIT SC (10:23)
[2023-03-24] MEDS: Aspirin E.C. 81 MG Tablet PO (10:24)
[2023-03-24] MEDS: Carvedilol 12.5 MG Tablet 37.5 MG PO ×2 (10:24→20:48)
[2023-03-24] MEDS: Clopidogrel Bisulfate 75 MG Tablet PO (10:25)
[2023-03-24] MEDS: Heparin Injection (Vial) 5,000 UNIT/ML VIAL 5000 UNIT SC ×2 (10:25→20:48)
[2023-03-24] MEDS: Pantoprazole Sodium 40 MG Tablet PO (10:25)
[2023-03-24] MEDS: Cefepime HCl 2 GM in 0.9% Normal Saline (100mL MB+) 100 ML IV (10:32)
[2023-03-24] MEDS: Insulin Lispro 100 UNIT/ML INSULN.PEN SC ×3 (12:39→22:42)
[2023-03-24 13:00] LABS: Bedside Glucose 194 mg/dL (74-106)
[2023-03-24] MEDS: Escitalopram Oxalate 20 MG Tablet PO (14:00)
[2023-03-24] MEDS: clonazePAM 1 MG Tablet PO (14:05)
[2023-03-24] MEDS: Vancomycin Trough/Random Due 1 LAB MC (16:08)
[2023-03-24 16:33] LABS: Bedside Glucose 179 mg/dL (74-106)
--- NOTE | 2023-03-24 18:02 | PHA.PHARE_ITS ---
Consult Antibiotic Management Pharmacy has been consulted to manage selected antiobiotic: Vancomycin Type of Intervention Type of Consult: Follow-up Suspected Infection Suspected Infection: Sepsis and Pneumonia Prior Doses of Antibiotics Prior Doses of Antibiotics Received/Current Regimen: Vancomycin 1000 mg given 03/23/23 @ 1821 Labs Labs: Sodium 139 mmol/L (136-145) 03/24/23 04:05 Potassium 3.6 mmol/L (3.5-5.1) 03/24/23 04:05 Chloride 106 mmol/L (98-107) 03/24/23 04:05 Carbon Dioxide 28.0 mmol/L (21.0-32.0) 03/24/23 04:05 Anion Gap 5 (5-15) 03/24/23 04:05 BUN 61 mg/dL (7-18) H 03/24/23 04:05 Creatinine 1.48 mg/dL (0.55-1.02) H 03/24/23 04:05 Est GFR (MDRD) Af Amer 44 mL/min (>60) L 03/24/23 04:05 Est GFR (MDRD) Non-Af 37 mL/min (>60) L 03/24/23 04:05 BUN/Creatinine Ratio 41.2 RATIO (10-20) H 03/24/23 04:05 Glucose 160 mg/dL (74-106) H 03/24/23 04:05 Vancomycin Trough 20.0 ug/mL (5.0-15.0) H 03/24/23 17:30 Microbiology Microbiology: Microbiology 03/22/23 11:35 Urine Catheter - Pineda Urine Culture - Final Culture exhibits no growth. 03/22/23 11:35 Urine Catheter - Pineda Legionella Antigen - Final 03/22/23 11:35 Urine Catheter - Pineda Streptococcus pneumoniae Antigen (M - Final 03/22/23 11:35 Urine Catheter - Catheter Urine Culture - Final Culture exhibits no growth. 03/22/23 11:25 Blood Culture (Wb) - Left Hand Blood Culture - Preliminary No growth in 48 hours. 03/22/23 09:50 Blood Culture (Wb) - Anticubital Left Blood Culture - Preliminary No growth in 48 hours. 03/22/23 16:51 Mucosa - Nasopharyngeal - Final 03/22/23 11:40 Nasal Secretion SARS-CoV-2 & FLU Antigen (Rapid) - Final Dosing Weight Weight used for dosin.4 kg Estimated Creatinine Clearance Estimated Creatinine Clearance: ~36 Goal Trough Goal Trough: 15-20 mcg/mL Pharmacy Plan for Drug Dosing Pharmacy Plan for Drug Dosing: Vancomycin trough = 20.0, drawn 23 hours after previous dose. As trough was sl ightly early, dose prior to the 1000 mg dose was a 2 gram dose, and patient's renal function continues to improve (improvement by ~ 1 mg/dL from admission), will continue 1000 mg Q24H for now with a trough in 2 days. Pharmacy Service will continue to monitor and adjust dosing as required. Follow-Up Labs Follow-Up Labs: Trough: Vancomycin Date/Time Labs Ordered Labs to be done on [date and time ordered]: 03/26/23 @ 2176
[2023-03-24] MEDS: Vancomycin IV 1,000 MG/200 ML BAG 200 MG IV (18:18)
--- NOTE | 2023-03-24 21:10 | CPS ---
Patient refused PAP therapy for the night. On 2L.
[2023-03-24] MEDS: Senna/Docusate Sodium 1 Tablet 2 TABLET PO (22:42)
[2023-03-24 23:05] LABS: Bedside Glucose 182 mg/dL (74-106)
[2023-03-25] VITALS (12 sets, daily range): BP systolic 139–164; BP diastolic 50–70; PULSE 65–75; RESP 16–20; TEMP 36.2–36.6; O2SAT 90–97; BMI 43.7
[2023-03-25] MEDS: 0.9% Saline Lock 10 ML Syringe IV ×4 (02:32→18:54)
[2023-03-25 07:24] LABS: Hematocrit 31.3 % (37-47); Mean Corp Hgb Conc 31.9 g/dL (32-36); Mean Corpuscular Hgb 28.8 pg (27.0-32.0); Mean Corpuscular Volume 90.2 fL (81-99); Mean Platelet Vol. 9.7 fl (6.2-12.0); POSITIVE COUNT YES; POSITIVE MORPHOLOGY YES; Platelet Count 249 K/mm3 (150-450); RBC Distribution Width SD 49.5 fl (35.1-43.9); Red Blood Count 3.47 M/mm3 (4.2-5.4); White Blood Count 14.4 K/mm3 (4.4-11.0)
[2023-03-25 07:27] LABS: Differential Indicated MANUAL DIFF
[2023-03-25 07:49] LABS: Anion Gap 3 (5-15); BUN 47 mg/dL (7-18); BUN/Creat Ratio 41.6 RATIO (10-20); Calcium,Total 9.2 mg/dL (8.5-10.1); Chloride 108 mmol/L (98-107); Creatinine, Serum 1.13 mg/dL (0.55-1.02); EST Glomerular Filtration Rate 50 mL/min (>60); Est Glom Filt Rate - Afr Amer 60 mL/min (>60); Estimated Creatinine Clearance 31.37 ml/min; Glucose 152 mg/dL (74-106); Sodium Level 139 mmol/L (136-145)
[2023-03-25 07:58] LABS: Eosinophil 2 % (0-5); Lymphocyte 11 % (19-41); Metamyelocyte 4 % (0-1); Monocyte 1 % (0-10); Myelocyte 3 % (0-0); Neutrophil-Band 4 % (0-5); Neutrophil-Segmented 75 % (47-70); Platelet Estimate ADEQUATE (ADEQ); Red Cell Morphology NORM C+C NORMAL (NORM C&C); Total Cells Counted 100 (MANUAL DIFF)
[2023-03-25 07:59] LABS: Absolute Neutrophil Count 11.4 X10^3/uL (2.0-7.7)
--- NOTE | 2023-03-25 08:35 | PN.CC_ITS ---
Assessment & Plan Assessment/Plan (1) Acute hypoxemic respiratory failure: (2) Acute renal failure: QUALIFIERS: Acute renal failure type: with acute tubular necrosis Qualified Code(s): N17.0 - Acute kidney failure with tubular necrosis (3) Pneumonia: QUALIFIERS: Laterality: right Lung location: lower lobe of lung (4) Sepsis: QUALIFIERS: Sepsis type: sepsis due to unspecified organism Seps is acute organ dysfunction status: with acute organ dysfunction Severe sepsis acute organ dysfunction type: acute respiratory failure Acute respiratory failure type: with hypoxia Severe sepsis shock status: without septic shock Qualified Code(s): A41.9 - Sepsis, unspecified organism; R65.20 - Severe sepsis without septic shock; J96.01 - Acute respiratory failure with hypoxia PLAN: Plan RECOMMENDATIONS: 1. Challenge with Lasix 2. Continue empiric antibiotics pending cultures 3. Walking oximetry 4. Electrolyte supplementation as necessary 5. Increase activity as tolerated 6. Possible outpatient pulmonary follow-up with continues to require supplemental oxygen IMPRESSIONS: 1. Acute hypoxic respiratory failure/sepsis secondary to right lower lobe pneumonia Unclear sequence of events. Patient does have a right lower lobe infiltrate, so aspiration would be a concern. If cultures are negative at 48 hours, could transition to aspiration coverage. Patient did have a fall with mild rhabdo. Patient did appear to be volume overloaded and received some Lasix on admission with good response. Patient is having significant oxygen requirements on presentation that have improved rapidly following BiPAP and Lasix, indicating a possible component of CHF. High clinical suspicion for RYAN concomitantly, so would recommend BiPAP with sleep. Viral workup has been negative. Will challenge with Lasix given failure to improve be on 2 L/min 2. Acute kidney injury on CKD Resolved. Patient with some improvement in renal function. Baseline appears to be approximately 1.4 and she presented with a creatinine of 2.4. Patient is down to 1.5 this morning and doing well. Monitor electrolytes with repletion as necessary. Clinical suspicion for prerenal etiology secondary to problem #1. Renal ultrasound is not showing any hydronephrosis at this time. 3. Fall with mild rhabdomyolysis secondary to problem #1 Unclear etiology for the fall. Patient will be evaluated by PT and OT. Patient has not received significant volume resuscitation secondary to concerns for congestive heart failure. Renal function continues to improve. Likely not necessary to alkalize urine. 4. Hypertension/morbid obesity/possible CHF Complicates care, management, recovery and prognosis. Blood pressure is up a little bit at this time, but some BP meds have been held. Okay to reinitiate baseline medications in a stepwise fashion. Echocardiogram has preserved ejection fraction with some valvular abnormalities. Patient on appropriate prophylaxis. Subjective Subjective Patient did okay overnight. Patient continues to report back pain, but does not believe it is changed in character from her baseline. Patient still on supplemental oxygen and describes a wet, nonproductive cough. Objective Data Objective Data Vital Signs: Vital Signs Temp Pulse Resp BP Pulse Ox O2 Del Method O2 Flow Rate 36.3 C L 66 20 H 152/50 H 90 Nasal Cannula 2 03/25/23 05:50 03/25/23 05:50 03/25/23 05:50 03/25/23 05:50 03/25/23 07:50 03/25/23 07:50 03/25/23 07:50 FiO2 21 03/24/23 01:59 Oxygen Flow Rate (L/min) 2 Oxygen Delivery Method Nasal Cannula Weight: 101.7 kg Body Mass Index (BMI) 43.7 Intake & Output: Intake and Output for Last 24 Hours 03/23/23 03/24/23 03/25/23 23:59 23:59 23:59 Intake Total 1023.33 / 1023.33 640 / 640 Output Total 1700 / 2300 1400 / 1400 Balance -676.67 / -1276.67 -760 / -760 Lab / Micro Data Attestation: I reviewed the patient's lab results. 03/25/23 06:03 03/25/23 06:03 Labs: Laboratory Results - last 24 hr 03/24/23 09:23: POC Glucose 147 H 03/24/23 12:38: POC Glucose 194 H 03/24/23 16:06: POC Glucose 179 H 03/24/23 17:30: Vancomycin Trough 20.0 H 03/24/23 22:41: POC Glucose 182 H 03/25/23 06:03: WBC 14.4 H, RBC 3.47 L, Hgb 10.0 L, Hct 31.3 L, MCV 90.2, MCH 28.8, MCHC 31.9 L, RDW Std Deviation 49.5 H, RDW Coeff of Jackie 15.0 H, Plt Count 249, MPV 9.7, Neut % (Auto) Not Reportable, Absolute Neuts (auto) 11.4 H, Absolute Lymphs (auto) 1.60, Total Counted 100, Neutrophils % (Manual) 75 H, Band Neutrophils % 4, Lymphocytes % (Manual) 11 L, Monocytes % (Manual) 1, Eosinophils % (Manual) 2, Metamyelocytes % 4 H, Myelocytes % 3 H, Diff Path Review May foll, Platelet Estimate ADEQUATE, RBC Morphology NORM C+C, Sodium 139, Potassium 4.0, Chloride 108 H, Carbon Dioxide 28.0, Anion Gap 3 L, BUN 47 H , Creatinine 1.13 H, Estim Creat Clear Calc 31.37, Est GFR (MDRD) Af Amer 60, Est GFR (MDRD) Non-Af 50 L, BUN/Creatinine Ratio 41.6 H, Glucose 152 H, Calcium 9.2 Micro: Microbiology 03/22/23 11:35 Urine Catheter - Pineda Urine Culture - Final Culture exhibits no growth. 03/22/23 11:35 Urine Catheter - Pineda Legionella Antigen - Final 03/22/23 11:35 Urine Catheter - Pineda Streptococcus pneumoniae Antigen (M - Final 03/22/23 11:35 Urine Catheter - Catheter Urine Culture - Final Culture exhibits no growth. 03/22/23 11:25 Blood Culture (Wb) - Left Hand Blood Culture - Preliminary No growth in 48 hours. 03/22/23 09:50 Blood Culture (Wb) - Anticubital Left Blood Culture - Preliminary No growth in 48 hours. 03/22/23 16:51 Mucosa - Nasopharyngeal - Final 03/22/23 11:40 Nasal Secretion SARS-CoV-2 & FLU Antigen (Rapid) - Final Physical Exam Const alert and oriented x3 Constitutional Narrative: Occasional grimacing associated with change in body position. Morbidly obese. HEENT normocephalic and head/scalp atraumatic Eyes PERRL, EOMs intact bilaterally and conjunctivae normal Eyes Narrative: No scleral icterus or injection noted Neck full ROM and supple Chest inspection of chest normal Resp Auscultation: diminished lung sounds; Negative for rales, rhonchi or wheezes Cardio regular rate, regular rhythm, S1 normal heart sound, S2 normal heart sound, no murmurs, no rub and no gallops GI normal to inspection, nondistended, normoactive bowel sounds Extremity General Extremity: edema; Negative for clubbing Skin no rashes or lesions noted Neuro CN's II-XII intact bilaterally and moves all extremities Psych Mood & Affect: flat affect Charges/Coding Visit Charges Inpatient E&M: 36471 Subs Hosp L2
[2023-03-25] MEDS: Insulin Glargine-YFGN 100 UNIT/ML Pen 10 UNIT SC (08:57)
[2023-03-25] MEDS: Insulin Lispro 100 UNIT/ML INSULN.PEN SC ×2 (08:57→22:59)
[2023-03-25] MEDS: Carvedilol 12.5 MG Tablet 37.5 MG PO ×2 (08:58→22:59)
[2023-03-25] MEDS: Heparin Injection (Vial) 5,000 UNIT/ML VIAL 5000 UNIT SC ×2 (08:58→22:59)
[2023-03-25] MEDS: Aspirin E.C. 81 MG Tablet PO (08:58)
[2023-03-25] MEDS: Escitalopram Oxalate 20 MG Tablet PO (08:59)
[2023-03-25] MEDS: Pantoprazole Sodium 40 MG Tablet PO (08:59)
[2023-03-25] MEDS: Clopidogrel Bisulfate 75 MG Tablet PO (08:59)
[2023-03-25] MEDS: traMADol 50 MG Tablet PO ×2 (09:06→15:14)
[2023-03-25] MEDS: clonazePAM 1 MG Tablet PO (09:10)
[2023-03-25] MEDS: Furosemide 40 MG/4 ML Vial IV (09:24)
--- NOTE | 2023-03-25 10:38 | PN.HOSP_ITS ---
Reason for Visit Reason for Visit: Diagnoses Sepsis, unspecified organism (03/24/23) Pneumonia, unspecified organism (03/24/23) Acute respiratory failure with hypoxia (03/24/23) Acute kidney failure with tubular necrosis (03/24/23) Acute kidney failure, unspecified (03/24/23) Severe sepsis without septic shock (03/24/23) Subjective Subjective Seen complains of feeling weak. Patient was transferred from intensive care unit to the progressive care unit the day prior. Requested for PT OT eval Objective Data Objective Data Vital Signs: Vital Signs Temp Pulse Resp BP Pulse Ox O2 Del Method O2 Flow Rate 98 F 66 18 164/65 H 95 Room Air 2 03/25/23 08:41 03/25/23 08:41 03/25/23 08:41 03/25/23 08:41 03/25/23 08:41 03/25/23 08:41 03/25/23 07:50 FiO2 21 03/24/23 01:59 Oxygen Flow Rate (L/min) 2 Oxygen Delivery Method Room Air Weight: 101.7 kg Body Mass Index (BMI) 43.7 Intake & Output: Intake and Output for Last 24 Hours 03/23/23 03/24/23 03/25/23 23:59 23:59 23:59 Intake Total 1023.33 / 1023.33 640 / 640 Output Total 1700 / 2300 1400 / 1400 Balance -676.67 / -1276.67 -760 / -760 Lab / Micro Data 03/25/23 06:03 03/25/23 06:03 Labs: Laboratory Results - last 24 hr 03/24/23 12:38: POC Glucose 194 H 03/24/23 16:06: POC Glucose 179 H 03/24/23 17:30: Vancomycin Trough 20.0 H 03/24/23 22:41: POC Glucose 182 H 03/25/23 06:03: WBC 14.4 H, RBC 3.47 L, Hgb 10.0 L, Hct 31.3 L, MCV 90.2, MCH 28.8, MCHC 31.9 L, RDW Std Deviation 49.5 H, RDW Coeff of Jackie 15.0 H, Plt Count 249, MPV 9.7, Neut % (Auto) Not Reportable, Absolute Neuts (auto) 11.4 H, Absolute Lymphs (auto) 1.60, Total Counted 100, Neutrophils % (Manual) 75 H, Band Neutrophils % 4, Lymphocytes % (Manual) 11 L, Monocytes % (Manual) 1, Eosinophils % (Manual) 2, Metamyelocytes % 4 H, Myelocytes % 3 H, Diff Path Review May foll, Platelet Estimate ADEQUATE, RBC Morphology NORM C+C, Sodium 139, Potassium 4.0, Chloride 108 H, Carbon Dioxide 28.0, Anion Gap 3 L, BUN 47 H , Creatinine 1.13 H, Estim Creat Clear Calc 31.37, Est GFR (MDRD) Af Amer 60, Est GFR (MDRD) Non-Af 50 L, BUN/Creatinine Ratio 41.6 H, Glucose 152 H, Calcium 9.2 Micro: Microbiology 03/22/23 11:35 Urine Catheter - Pineda Urine Culture - Final Culture exhibits no growth. 03/22/23 11:35 Urine Catheter - Pineda Legionella Antigen - Final 03/22/23 11:35 Urine Catheter - Pineda Streptococcus pneumoniae Antigen (M - Final 03/22/23 11:35 Urine Catheter - Catheter Urine Culture - Final Culture exhibits no growth. 03/22/23 11:25 Blood Culture (Wb) - Left Hand Blood Culture - Preliminary No growth in 48 hours. 03/22/23 09:50 Blood Culture (Wb) - Anticubital Left Blood Culture - Preliminary No growth in 48 hours. 03/22/23 16:51 Mucosa - Nasopharyngeal - Final 03/22/23 11:40 Nasal Secretion SARS-CoV-2 & FLU Antigen (Rapid) - Final Physical Exam Narrative GENERAL patient appears ill looking, HEENT: Atraumatic; normocephalic EYES; Anicteric, Normal Conjunctiva NECK; supple, normal thyroid, RESPIRATORY: Diminished to auscultation, CARDIOVASCULAR: Regular S1 S2, GI: soft, normoactive bowel sounds, : No Renal angle tenderness; EXTREMITIES: No edema, no clubbing, MUSCULOSKELETAL: no muscle wasting NEURO: Awake; no lateralizing signs. SKIN: Areas of ecchymosis on extremities PSYCH; Flat affect Assessment & Plan Assessment/Plan (1) Sepsis: QUALIFIERS: Sepsis type: sepsis due to unspecified organism Sepsis acute organ dysfunction status: with acute organ dysfunction Severe sepsis acute organ dysfunction type: acute respiratory failure Acute respiratory failure type: with hypoxia Severe sepsis shock status: without septic shock Qualified Code(s): A41.9 - Sepsis, unspecified organism; R65.20 - Severe sepsis without septic shock; J96.01 - Acute respiratory failure with hypoxia (2) Pneumonia: QUALIFIERS: Laterality: right Lung location: lower lobe of lung (3) Acute hypoxemic respiratory failure: (4) Acute renal failure: QUALIFIERS: Acute renal failure type: with acute tubular necrosis Qualified Code(s): N17.0 - Acute kidney failure with tubular necrosis PLAN: Plan Patient is a 72-year-old lady with multiple comorbidities admitted with altered mental status, recurrent falls and progressive generalized weakness 1. Acute metabolic encephalopathy ? Multifactorial including hypoxic respiratory failure from pneumonia, acute kidney injury as well as rhabdomyolysis admitted to the intensive care unit for treatment of the underlying clinical condition ? 03/23/2023; patient remains in intensive care unit ? 03/24/2023 patient level of sensorium improving. ? 03/25/2023 patient back to baseline 2. Acute hypoxic respiratory failure ? Evidenced by tachypnea and use of accessory muscles in breathing as well as hypoxia. Patient had to be placed on noninvasive ventilation BiPAP and admitted to the intensive care unit with consultation placed to production sampler/rail flaw detector operator ? 03/23/2023. Patient has been weaned off BiPAP ? 03/24/2023 patient refused to wear BiPAP during the night 3. Sepsis ? Secondary to pneumonia evidence of sepsis (presence of an infection pneumonia, leukocytosis, tachypnea with respiratory rate of 25 and evidence of endorgan dysfunction respiratory failure as well as acute kidney injury). Patient treated with broad-spectrum antibiotic therapy after cultures have been sent patient was resuscitated with fluids patient did not receive 30ml/kg due to risk of congestive heart failure ? 03/23/2023 patient WBC count still remains elevated ? 03/24/2023 cultures so far negative to date, WBC count trending down ? 03/25/2023 cultures of remain negative to date 4. Pneumonia with suspected MDR's ? Patient was started on broad-spectrum antibiotic therapy admitted to the intensive care unit management as discussed 5. Acute kidney injury ? Superimposed on chronic kidney disease stage III patient on fluids with subsequent monitoring of electrolytes ordered ? 03/23/2023 creatinine down to 1.80 from 2.06 on admission 6. Hypokalemia ? Corrected per protocol repeat labs ordered for a.m. 7. Acute rhabdomyolysis ? Secondary to prolonged period of immobilization 8. Chronic kidney disease stage III ? Baseline creatinine 1.35-1.5 patient presented with acute kidney injury management as discussed above 9. Coronary artery disease ? With previous single-vessel CABG. Patient is on guideline directed medical therapy 9. Essential hypertension ? Patient blood pressure relatively on the low side patient antihypertensives held 10. Hyponatremia ? Suspected to be secondary to hypovolemic hyponatremia do expect improvement with fluid resuscitation daily BMPs ordered for monitoring 11. Diabetes mellitus type II -patient's oral hypoglycemics held. Placed on long acting insulin, Accu-Cheks a.c. and at bedtime and covered with sliding scale insulin 12. Physical deconditioning - Requested for PT OT eval and social worker masters to assist with discharge planning 13. Class III obesity with BMI of 45 ? Complicating care weight loss advised 14. DVT prophylaxis ? SC heparin Time spent in the patient's overall evaluation,decision-making process, review of diagnostic data, adjustment of management, discussion with other providers, nursing nursing and ancillary staff involved in patient's care documentation, 40 minutes Charges/Coding Visit Charges Inpatient E&M: 51290 Subs Hosp L2
[2023-03-25] MEDS: Cefepime HCl 2 GM in 0.9% Normal Saline (100mL MB+) 100 ML IV ×2 (10:44→22:59)
[2023-03-25 12:43] LABS: Bedside Glucose 194 mg/dL (74-106)
[2023-03-25] MEDS: Vancomycin IV 1,000 MG/200 ML BAG 200 MG IV (18:52)
[2023-03-25 19:34] LABS: Bedside Glucose 138 mg/dL (74-106)
--- NOTE | 2023-03-25 21:03 | CPS ---
Patient refused PAP therapy for the night.
[2023-03-26 00:32] LABS: Bedside Glucose 172 mg/dL (74-106)
[2023-03-26 03:00] VITALS: O2SAT 96
[2023-03-26 05:00] VITALS: BP 135/90; PULSE 74; RESP 16; TEMP 36.3; O2SAT 95
[2023-03-26 06:00] VITALS: BMI 43.1; BMI 43.7
[2023-03-26 06:17] LABS: Hematocrit 32.5 % (37-47); Hemoglobin 10.3 g/dL (12.0-15.0); Mean Corp Hgb Conc 31.7 g/dL (32-36); Mean Corpuscular Hgb 29.1 pg (27.0-32.0); Mean Corpuscular Volume 91.8 fL (81-99); Mean Platelet Vol. 9.4 fl (6.2-12.0); POSITIVE COUNT YES; POSITIVE MORPHOLOGY YES; Platelet Count 274 K/mm3 (150-450); RBC Distribution Width CV 14.9 % (11.6-14.6); RBC Distribution Width SD 50.6 fl (35.1-43.9); Red Blood Count 3.54 M/mm3 (4.2-5.4); White Blood Count 14.5 K/mm3 (4.4-11.0)
[2023-03-26] MEDS: Insulin Lispro 100 UNIT/ML INSULN.PEN SC ×2 (06:18→11:17)
[2023-03-26 06:25] LABS: Anion Gap 4 (5-15); BUN 36 mg/dL (7-18); BUN/Creat Ratio 36.6 RATIO (10-20); Calcium,Total 8.6 mg/dL (8.5-10.1); Chloride 104 mmol/L (98-107); Creatinine, Serum 0.98 mg/dL (0.55-1.02); EST Glomerular Filtration Rate 59 mL/min (>60); Est Glom Filt Rate - Afr Amer 71 mL/min (>60); Estimated Creatinine Clearance 36.18 ml/min; Glucose 166 mg/dL (74-106); Potassium 3.9 mmol/L (3.5-5.1); Sodium Level 139 mmol/L (136-145)
[2023-03-26 06:30] LABS: Differential Indicated MANUAL DIFF
[2023-03-26 06:41] LABS: Bedside Glucose 155 mg/dL (74-106)
[2023-03-26 07:41] LABS: Eosinophil 2 % (0-5); Lymphocyte 17 % (19-41); Metamyelocyte 5 % (0-1); Monocyte 5 % (0-10); Neutrophil-Band 3 % (0-5); Neutrophil-Segmented 68 % (47-70); Platelet Estimate ADEQUATE (ADEQ); Red Cell Morphology NORM C+C NORMAL (NORM C&C); Total Cells Counted 100 (MANUAL DIFF)
[2023-03-26 07:42] LABS: Absolute Lymphocyte Count 2.46 X10^3/uL (0.83-4.51); Absolute Neutrophil Count 10.4 X10^3/uL (2.0-7.7)
[2023-03-26 09:00] VITALS: O2SAT 92
[2023-03-26 09:16] VITALS: BP 149/56; PULSE 70; RESP 18; TEMP 36.2; O2SAT 92
[2023-03-26] MEDS: traMADol 50 MG Tablet PO (09:22)
[2023-03-26] MEDS: clonazePAM 1 MG Tablet PO (09:22)
[2023-03-26] MEDS: Acetaminophen 500 MG Tablet 1000 MG PO (09:23)
[2023-03-26] MEDS: Senna/Docusate Sodium 1 Tablet 2 TABLET PO (09:23)
[2023-03-26] MEDS: Cefepime HCl 2 GM in 0.9% Normal Saline (100mL MB+) 100 ML IV (09:23)
[2023-03-26] MEDS: Aspirin E.C. 81 MG Tablet PO (09:25)
[2023-03-26] MEDS: Carvedilol 12.5 MG Tablet 37.5 MG PO (09:25)
[2023-03-26] MEDS: Pantoprazole Sodium 40 MG Tablet PO (09:26)
[2023-03-26] MEDS: Insulin Glargine-YFGN 100 UNIT/ML Pen 10 UNIT SC (09:26)
[2023-03-26] MEDS: Escitalopram Oxalate 20 MG Tablet PO (09:26)
[2023-03-26] MEDS: Clopidogrel Bisulfate 75 MG Tablet PO (09:26)
[2023-03-26] MEDS: Heparin Injection (Vial) 5,000 UNIT/ML VIAL 5000 UNIT SC (09:26)
[2023-03-26 11:42] LABS: Bedside Glucose 152 mg/dL (74-106)
--- NOTE | 2023-03-26 14:51 | CASEMGMT ---
BETTYE reviewed patient's therapy notes and therapy is recommending SNF. BETTYE met with patient and her sister. Introduced self and role at [facility]. SW explained therapy's recommendations for long term facility. Patient said she is going home. SW asked patient if she would want home health. Patient said that would be good. SW told patient that we can get her a list of home health providers. BETTYE notified RN CM. Charis FENTON
[2023-03-26 15:03] VITALS: BP 117/42; PULSE 65; RESP 18; TEMP 36.3; O2SAT 93
[2023-03-26 15:22] VITALS: O2SAT 89; O2SAT 93
[2023-03-26] MEDS: Polyethylene Glycol 3350 17 GM PACKET PO (15:29)
--- NOTE | 2023-03-26 16:23 | DCINST_ITS ---
Discharge Instructions Diet Discharge Diet: Low fat / Low cholesterol Activity Discharge Activity: Return to Normal Activity Weight Bearing Status: Weight bearing as tolerated Dressing / Incision Call your doctor if you observe: Fever of 101 or Higher, Shortness of breath, Dizziness and Swelling in the ankles Follow Up Care Test Results: Test results from this visit will be discussed in further detail at your follow- up appointment, if applicable. Discharge Plan Admission Admit Date/Time: 03/24/23 06:42 Primary Reason for Your Visit: pneumonia Attending Provider: Taylor Alcantara Primary Care Provider: Paulie Hernandez Consulting Providers: Adi Leal; Elliott Garcia; Lucille Jauregui; Rahul Crooks; Zaida Castaneda NP; Manpreet Rogel Instructions Patient Instructions: ED Pneumonia (Adult) Discharge Orders/Prescriptions Prescriptions: New levofloxacin 500 mg tablet 500 mg PO Q24H Qty: 5 0RF Continued multivitamin 1 EACH tablet 1 ea PO DAILY cyclobenzaprine 10 MG tablet 20 mg PO QHS chlorpheniramine maleate [Allergy (chlorpheniramine)] 4 MG tablet 8 mg PO BID meloxicam 15 MG tablet 15 mg PO DAILY cyanocobalamin (vitamin B-12) 1,000 MCG tablet 1,000 mcg PO DAILY pioglitazone 45 MG tablet 45 mg PO DAILY clopidogrel 75 MG tablet 75 mg PO DAILY aspirin [Adult Low Dose Aspirin] 81 MG tablet,delayed release (DR/EC) 81 mg PO DAILY tramadol 50 MG tablet 50 - 100 mg PO Q6H PRN (Reason: BACK PAIN ) escitalopram oxalate 20 MG tablet 20 mg PO DAILY coenzyme Q10-vit E-vit E mixed 1 EACH capsule 2 ea PO BID valsartan 320 mg Tablet 320 mg PO DAILY bupropion HCl 150 mg tablet extended release 24 hr 150 mg PO DAILY carvedilol 12.5 mg tablet 37.5 mg PO BID trazodone 50 mg tablet 50 - 100 mg PO QHS furosemide 40 mg tablet 40 mg PO DAILY clonazepam 1 mg tablet 1 mg PO BID PRN (Reason: ANXIETY ) Repatha SureClick 140 mg/mL pen injector 140 mg SUBCUT Q14D Patient Comments: pt states they are due for their next injection this weekend (03-25-23) cholecalciferol (vitamin D3) 25 mcg (1,000 unit) capsule 25 mcg PO DAILY famotidine 20 mg tablet 20 mg PO DAILY olive leaf extract 250 mg capsule 250 mg PO BID vitamin K2 45 mcg capsule 45 mcg PO DAILY psyllium husk [Fiber (psyllium husk)] 0.4 gram capsule 0.4 g PO DAILY docusate sodium [Colace] 100 mg capsule 100 mg PO DAILY tiotropium bromide [Spiriva with HandiHaler] 18 mcg capsule, w/inhalation device 1 cap inhalation DAILY magnesium citrate 100 mg tablet 100 mg PO DAILY zinc acetate 50 mg (zinc) capsule 50 mg PO DAILY Referrals / Follow Up: Paulie Hernandez DO [Primary Care Provider] - Within 1 Week Disposition Disposition (needs filled in before D/C Order can be placed): Home, Self Care
--- NOTE | 2023-03-26 16:27 | DS.PCM_ITS ---
Providers Date of Admission: 03/24/23 Date of Discharge: 03/26/23 Primary Care Physician: Dr. Paulie Hernandez, Consultations 03/22/23 17:06 Consult: Space Buyer / Pulmonary Medicine Routine Consulting Provider: Pulmonary Medicine jeison [place] Reason for Consult: Respiratory failure EMERGENT Consult: Yes MD Notified: Yes Date Notified: 03/22/23 Time Notified: 13:54 Method of Notification: Verbal Reason For Visit: ACUTE METABOLIC ENCEPHALOPATHY Diagnosis Discharge Diagnosis (1) Sepsis: Status: Acute Code(s): A41.9 - Sepsis, unspecified organism Qualifiers: Acute respiratory failure type: with hypoxia Sepsis acute organ dysfunction status: with acute organ dysfunction Sepsis type: sepsis due to unspecified organism Severe sepsis acute organ dysfunction type: acute respiratory failure Severe sepsis shock status: without septic shock Qualified Code(s): A41.9 - Sepsis, unspecified organism; R65.20 - Severe sepsis without septic shock; J96.01 - Acute respiratory failure with hypoxia (2) Pneumonia: Status: Acute Code(s): J18.9 - Pneumonia, unspecified organism Qualifiers: Laterality: right Lung location: lower lobe of lung (3) Acute hypoxemic respiratory failure: Status: Acute Code(s): J96.01 - Acute respiratory failure with hypoxia (4) Acute renal failure: Status: Acute Code(s): N17.9 - Acute kidney failure, unspecified Qualifiers: Acute renal failure type: with acute tubular necrosis Qualified Code(s): N17.0 - Acute kidney failure with tubular necrosis Medications at Discharge Home Medications aspirin 81 mg tablet,delayed release (Adult Low Dose Aspirin) 81 mg PO DAILY HEART HEALTH 06/25/18 chlorpheniramine maleate 4 mg tablet (Allergy (chlorpheniramine)) 8 mg PO BID ALLERGIES 06/25/18 clopidogrel 75 mg tablet 75 mg PO DAILY BLOOD THINNER 06/25/18 coenzyme Q10 100 mg-vitamin E 20 mg-vitamin E mixed 15 mg capsule 2 ea PO BID SUPPLEMENT 06/25/18 cyanocobalamin (vitamin B-12) 1,000 mcg tablet 1,000 mcg PO DAILY SUPPLEMENT 06/25/18 cyclobenzaprine 10 mg tablet 20 mg PO QHS MUSCLE SPASMS 06/25/18 escitalopram oxalate 20 mg tablet 20 mg PO DAILY DEPRESSION 06/25/18 meloxicam 15 mg tablet 15 mg PO DAILY ARTHRITIS 06/25/18 multivitamin 1 ea PO DAILY HEALTH MAINTENANCE 06/25/18 pioglitazone 45 mg tablet 45 mg PO DAILY BLOOD SUGARS 06/25/18 tramadol 50 mg tablet 50 - 100 mg PO Q6H PRN BACK PAIN 06/25/18 valsartan 320 mg tablet 320 mg PO DAILY HEART 01/11/21 bupropion HCl 150 mg 24 hr tablet, extended release 150 mg PO DAILY DEPRESSION 03/22/23 carvedilol 12.5 mg tablet 37.5 mg PO BID HEART 03/22/23 cholecalciferol (vitamin D3) 25 mcg (1,000 unit) capsule 25 mcg PO DAILY SUPPLEMENT 03/22/23 clonazepam 1 mg tablet 1 mg PO BID PRN ANXIETY 03/22/23 docusate sodium 100 mg capsule (Colace) 100 mg PO DAILY STOOL SOFTENER 03/22/23 evolocumab 140 mg/mL subcutaneous pen injector (Repatha SureClick) 140 mg subcut Q14D CHOLESTEROL 03/22/23 famotidine 20 mg tablet 20 mg PO DAILY ACID REFLUX 03/22/23 furosemide 40 mg tablet 40 mg PO DAILY EDEMA 03/22/23 magnesium citrate 100 mg tablet 100 mg PO DAILY SUPPLEMENT 03/22/23 olive leaf extract 250 mg capsule 250 mg PO BID SUPPLEMENT 03/22/23 psyllium husk 0.4 gram capsule (Fiber (psyllium husk)) 0.4 g PO DAILY 03/22/23 tiotropium bromide 18 mcg capsule with inhalation device (Spiriva with HandiHaler) 1 cap inhalation DAILY SHORTNESS OF BREATH 03/22/23 trazodone 50 mg tablet 50 - 100 mg PO QHS INSOMNIA 03/22/23 vitamin K2 45 mcg capsule 45 mcg PO DAILY SUPPLEMENT 03/22/23 zinc acetate 50 mg (zinc) capsule 50 mg PO DAILY SUPPLEMENT 03/22/23 levofloxacin 500 mg tablet 500 mg PO Q24H #5 tabs 03/26/23 Hospital Course Operations None Procedures None Summary of Care Provided Minutes Spent on Discharge: 55 Hospital Course: Patient is a 72 y/o female with a PMH as outlined was admitted through the ED on 03/22/2023 with a complaint of generalized weakness and altered mental status as well as mechanical fall symptoms having started a week prior to admission. She had fallen the day before admission as well. She was found lying on the floor on the day of presentation was found to be more lethargic. In the ED chest imaging showed evidence of pneumonia and she was also very short of breath and in respiratory distress requiring BiPAP. She was therefore initially admitted to the ICU and managed for acute hypoxic respiratory failure due to pneumonia. She was started on IV vancomycin and cefepime. Creatinine was also elevated at 2.41 with a baseline of around 1.4. CPK was also elevated. She was therefore hydrated gently with fluids and also placed on IV Lasix. His shortness of breath improved and she was weaned off of oxygen on day of discharge. Blood cultures were negative. She had 2D echo which showed EF of 65% with mitral annuloplasty ring versus severe mitral annular calcification and mild to moderate mitral valve stenosis as well as presence of an aortic bioprosthetic stent. Urine culture was negative. Patient felt much better. She remained st able and was discharged home on 03/26/2023. She was discharged on p.o. Levaquin 500 mg daily for 5 days. She is follow-up with her primary care doctor within 1 to 2 weeks. Patient seen and examined prior to discharge. She had no active complaints and had an uneventful night. Review of systems otherwise negative. Labs and vitals reviewed. Home medication reviewed and reconciled. Physical Exam Const alert, oriented x3 and no apparent distress General Appearance: cooperative, comfortable and well kempt Orientation / Consciousness: awake Exam Limitations: no limitations HEENT normocephalic, head/scalp atraumatic, hearing grossly normal bilaterally and moist oral mucous membranes Mouth: oral and palatal mucosa normal Eyes PERRL, EOMs intact bilaterally and conjunctivae normal Neck no lymphadenopathy and supple Resp normal respiratory effort, no retractions, no use of accessory muscles and clear to auscultation bilaterally Resp Narrative: weaned off 2L of oxygen to room air. Cardio regular rate, regular rhythm, S1 normal heart sound, S2 normal heart sound and no murmurs GI normal to inspection, nondistended, normoactive bowel sounds, soft to palpation, non-tender and non-distended Skin no rashes or lesions noted Neuro oriented x3, CN's II-XII intact bilaterally, moves all extremities and no focal motor deficits Sensorium / Orientation: awake and alert Motor Exam: strength 5/5 throughout Psych affect normal Weight / BMI Weight Weight: 220 lb 10.923 oz Body Mass Index (BMI) 43.7 ABG / Lab / Microbiology Data 03/26/23 05:34 03/26/23 05:34 Laboratory: Laboratory Results - last 24 hr 03/25/23 17:16: POC Glucose 138 H 03/25/23 23:02: POC Glucose 172 H 03/26/23 05:34: WBC 14.5 H, RBC 3.54 L, Hgb 10.3 L, Hct 32.5 L, MCV 91.8, MCH 29.1, MCHC 31.7 L, RDW Std Deviation 50.6 H, RDW Coeff of Jackie 14.9 H, Plt Count 274, MPV 9.4, Neut % (Auto) Not Reportable, Absolute Neuts (auto) 10.4 H, Absolute Lymphs (auto) 2.46, Total Counted 100, Neutrophils % (Manual) 68, Band Neutrophils % 3, Lymphocytes % (Manual) 17 L, Monocytes % (Manual) 5, Eosinoph ils % (Manual) 2, Metamyelocytes % 5 H, Diff Path Review May foll, Platelet E stimate ADEQUATE, RBC Morphology NORM C+C, Sodium 139, Potassium 3.9, Chloride 104, Carbon Dioxide 31.0, Anion Gap 4 L, BUN 36 H, Creatinine 0.98, Estim Creat Clear Calc 36.18, Est GFR (MDRD) Af Amer 71, Est GFR (MDRD) Non-Af 59 L, BUN/Creatinine Ratio 36.6 H, Glucose 166 H, Calcium 8.6 03/26/23 06:13: POC Glucose 155 H 03/26/23 11:15: POC Glucose 152 H Microbiology: Microbiology 03/22/23 11:35 Urine Catheter - Pineda Urine Culture - Final Culture exhibits no growth. 03/22/23 11:35 Urine Catheter - Pineda Legionella Antigen - Final 03/22/23 11:35 Urine Catheter - Pineda Streptococcus pneumoniae Antigen (M - Final 03/22/23 11:35 Urine Catheter - Catheter Urine Culture - Final Culture exhibits no growth. 03/22/23 11:25 Blood Culture (Wb) - Left Hand Blood Culture - Preliminary No growth in 48 hours. 03/22/23 09:50 Blood Culture (Wb) - Anticubital Left Blood Culture - Preliminary No growth in 48 hours. 03/22/23 16:51 Mucosa - Nasopharyngeal - Final 03/22/23 11:40 Nasal Secretion SARS-CoV-2 & FLU Antigen (Rapid) - Final D/C Instructions Discharge Diet: Low fat / Low cholesterol Weight Bearing Status: Weight bearing as tolerated Call your doctor if you observe: Fever of 101 or Higher, Shortness of breath, Dizziness and Swelling in the ankles Meaningful Use Info Meaningful Use Diagnoses (Choose all that apply): None applicable Discharge Plan Admission Admit Date/Time: 03/24/23 06:42 Primary Reason for Your Visit: pneumonia Attending Provider: Taylor Alcantara Primary Care Provider: Paulie Hernandez Consulting Providers: Adi Leal; Elliott Garcia; Lucille Jauregui; Rahul Crooks; Zaida Castaneda COMPOUND FINISHER; Manpreet Rogel Instructions Patient Instructions: ED Pneumonia (Adult) Discharge Orders/Prescriptions Prescriptions: New levofloxacin 500 mg tablet 500 mg PO Q24H Qty: 5 0RF Continued multivitamin 1 EACH tablet 1 ea PO DAILY cyclobenzaprine 10 MG tablet 20 mg PO QHS chlorpheniramine maleate [Allergy (chlorpheniramine)] 4 MG tablet 8 mg PO BID meloxicam 15 MG tablet 15 mg PO DAILY cyanocobalamin (vitamin B-12) 1,000 MCG tablet 1,000 mcg PO DAILY pioglitazone 45 MG tablet 45 mg PO DAILY clopidogrel 75 MG tablet 75 mg PO DAILY aspirin [Adult Low Dose Aspirin] 81 MG tablet,delayed release (DR/EC) 81 mg PO DAILY tramadol 50 MG tablet 50 - 100 mg PO Q6H PRN (Reason: BACK PAIN ) escitalopram oxalate 20 MG tablet 20 mg PO DAILY coenzyme Q10-vit E-vit E mixed 1 EACH capsule 2 ea PO BID valsartan 320 mg Tablet 320 mg PO DAILY bupropion HCl 150 mg tablet extended release 24 hr 150 mg PO DAILY carvedilol 12.5 mg tablet 37.5 mg PO BID trazodone 50 mg tablet 50 - 100 mg PO QHS furosemide 40 mg tablet 40 mg PO DAILY clonazepam 1 mg tablet 1 mg PO BID PRN (Reason: ANXIETY ) Repatha SureClick 140 mg/mL pen injector 140 mg SUBCUT Q14D Patient Comments: pt states they are due for their next injection this weekend (03-25-23) cholecalciferol (vitamin D3) 25 mcg (1,000 unit) capsule 25 mcg PO DAILY famotidine 20 mg tablet 20 mg PO DAILY olive leaf extract 250 mg capsule 250 mg PO BID vitamin K2 45 mcg capsule 45 mcg PO DAILY psyllium husk [Fiber (psyllium husk)] 0.4 gram capsule 0.4 g PO DAILY docusate sodium [Colace] 100 mg capsule 100 mg PO DAILY tiotropium bromide [Spiriva with HandiHaler] 18 mcg capsule, w/inhalation device 1 cap inhalation DAILY magnesium citrate 100 mg tablet 100 mg PO DAILY zinc acetate 50 mg (zinc) capsule 50 mg PO DAILY Referrals / Follow Up: Paulie Hernandez DO [Primary Care Provider] - Within 1 Week Disposition Disposition (needs filled in before D/C Order can be placed): Home, Self Care Charges/Coding Visit Charges Inpatient E&M: 06081 Disch Hosp >30min
--- NOTE | 2023-03-26 16:30 | CASEMGMT ---
Addendum entered by Claire Perez 03/26/23 16:48: [facility] declined patient due to staffing with PT. RN RAYA in to update patient. Patient would like referral to [facility]. Discharge development and planning engineer updated. CM will continue to follow this patient and plan for a safe discharge. Original Note: KELLI DOS SANTOS in to discuss needs at discharge. Per SW, patient interested in C. A list of [facility] providers including quality and resource use data and consistent with the patient?s preferred geographical region, medical needs, and insurance network were provided from the [facility] Guide. Patient prefers [facility]. Patient and sister deny further needs at this time. RN RAYA made referral to [facility], awaiting acceptance.
[2023-03-26 16:57] LABS: Bedside Glucose 149 mg/dL (74-106)
--- NOTE | 2023-03-26 17:00 | CASEMGMT ---
Addendum entered by Carrol Mcrae 03/28/23 08:49: Discharge Planning [facility] accepted patient. They can provide all disciplines with the exception of SW. SOC today or tomorrow. left for patient with this information. RN CM updated. Carrol Mcrae, Discharge Planning Asst. Addendum entered by Carrol Mcrae 03/27/23 13:03: Discharge Planning All previous agencies declined patient. Referals sent to; [facility], [facility], [facility], and [place]. Carrol Mcrae, Discharge Planning Asst. Addendum entered by Carrol Mrcae 03/27/23 11:39: Discharge Planning [facility] declined referral. New referral sent to; [facility], [facility], [facility], [facility], [facility], [facility], and [facility]. Carrol Mcrae, Discharge Planning Asst. Original Note: Discharge Planning Referral sent to [facility] via [facility]. Carrol Mcrae Discharge Planning Asst.
--- NOTE | 2023-03-26 18:01 | NURSING ---
This RN took out pt's PICC line, petroleum gauze, 4x4 and post op occlusive dressing applied. No signs of bleeding or complications. Compression held for 5 minutes and pt lied flat for 30 minutes after PICC dc'd.
[2023-03-27 07:24] LABS: Pathologist Review Reviewed
[2023-03-27 07:32] LABS: Pathologist Review Reviewed
[2023-03-27 07:46] LABS: Pathologist Review Reviewed
== END 2023-03-26 18:35 | disposition home or self-care (01) | DRG 871 ==
LOC: ED 13:04 → ICU 03-23 03:00 → PCU 03-26 07:22 → ICU 03-28 11:06 → PCU 03-28 11:06
PROVIDERS: Internal Medicine; Admitting Provider Internal Medicine; Emergency Provider Emergency Medicine; PCP Preventive Medicine Occupational Medicine; Visit Provider Student in an Organized Health Care Education/Training Program
DX: A41.9 Sepsis, unspecified organism (principal); J18.9 Pneumonia, unspecified organism; J96.01 Acute respiratory failure with hypoxia; N17.0 Acute kidney failure with tubular necrosis; G93.41 Metabolic encephalopathy; J44.0 Chronic obstructive pulmonary disease with (acute) lower respiratory infection; E87.1 Hypo-osmolality and hyponatremia; Z68.42 Body mass index [BMI] 45.0-49.9, adult; M62.82 Rhabdomyolysis; E11.22 Type 2 diabetes mellitus with diabetic chronic kidney disease; N18.30 Chronic kidney disease, stage 3 unspecified; E66.01 Morbid (severe) obesity due to excess calories; E11.51 Type 2 diabetes mellitus with diabetic peripheral angiopathy without gangrene; R65.20 Severe sepsis without septic shock; I12.9 Hypertensive chronic kidney disease with stage 1 through stage 4 chronic kidney disease, or unspecified chronic kidney disease; M79.7 Fibromyalgia; E78.00 Pure hypercholesterolemia, unspecified; I25.10 Atherosclerotic heart disease of native coronary artery without angina pectoris; E87.6 Hypokalemia; E87.70 Fluid overload, unspecified; Z79.82 Long term (current) use of aspirin; Z87.891 Personal history of nicotine dependence; Z79.84 Long term (current) use of oral hypoglycemic drugs; Z79.02 Long term (current) use of antithrombotics/antiplatelets; Z66 Do not resuscitate
CPT/HCPCS: 36415; 36569; 36600; 51702; 70450; 70486; 71045; 76770; 80048; 80076; 80202; 81001; 82550; 82803; 82962; 83605; 83690; 83735; 83880; 84100; 84443; 84484; 85025; 85610; 85730; 87040; 87086; 87428; 87449; 87631; 87641; 93005; 93306; 94002; 94003; 94640; 94668; 94762; 97110; 97112; 97116; 97162; 97166; 97530; 97535; 97802; 99285; J7030; J7040; J7120; Q9957; A4216; C8929; J1940

== ENCOUNTER → 2023-06-08 | Outpatient (CLI) | payer MEDICARE, OTHER, SELFPAY ==
--- NOTE | 2023-06-08 08:01 | CDU_ITS ---
Reason For Study: Aftercare Rt. Velocities/BP Lt. Velocities/BP Subclavian artery 287.2/15.7 cm/sec. Prox CCA 199.1/37.5 cm/sec. Mid CCA 15.3/4.3 cm/sec. Mid CCA 160.3/34.3 cm/sec. Dist CCA 19.7/0.0 cm/sec. Dist CCA 267.0/47.2 cm/sec. Prox ICA 47.2/8.7 cm/sec. Prox ICA 231.4/34.3 cm/sec. Mid ICA 130.8/32.0 cm/sec. Mid ICA 148.4/32.0 cm/sec. Dist ICA 28.9/14.7 cm/sec. Dist ICA 106.7/34.2 cm/sec. Rt. ICA/CCA = 8.6. Lt. ICA/CCA = 1.4. Retrograde flow noted in RT ECA. Prox ECA 276.4/16.7 cm/sec. Rt. Vert. 63.7/14.6 cm/sec. Lt. Vert. 88.8/15.7 cm/sec. Right Extracranial There is heterogeneous, irregular atherosclerotic plaque noted in the right common carotid artery. Drumbeat flow noted. There is heterogeneous, irregular atherosclerotic plaque noted in the right internal carotid artery. The atherosclerotic plaque causes acoustic shadowing. There is heterogeneous, irregular atherosclerotic plaque noted in the right external carotid artery. The atherosclerotic plaque causes acoustic shadowing. ECA appears to have retrograde flow. Antegrade flow is noted in the right vertebral artery. Left Extracranial There is heterogeneous, irregular atherosclerotic plaque noted in the left common carotid artery. There is heterogeneous, irregular atherosclerotic plaque noted in the left internal carotid artery. The atherosclerotic plaque causes acoustic shadowing. There is heterogeneous, irregular atherosclerotic plaque noted in the left external carotid artery. The atherosclerotic plaque causes acoustic shadowing. Antegrade flow is noted in the left vertebral artery. Procedure Carotid Duplex [id number]. This is a Carotid Duplex examination using B-mode, color flow and specral Doppler. The study was technically difficult. Limited views were obtained. Exam performed in department. VL/Carotid Duplex Ultrasound Interpretation Summary Moderate (50-69%) stenosis right extracranial internal carotid. Moderate (50-69 %) stenosis left extracranial internal carotid. Flow within the vertebral arteries is antegrade bilaterally. Ordering Physician: Scooter Mckenna Referring Physician: Paulie Hernandez Performed By: Leighton Argueta RVT
--- NOTE | 2023-06-08 08:01 | AAVD_ITS ---
Reason For Study: Aftercare Aorta Measurements Aorta Doppler Measurements Proximal aorta measures2.68 x 2.62cm. in cross- Peak systolic flow velocities within the proximal sectional axis. aorta measure 41.5 cm/sec. Proximal aorta measures2.52cm. in longitudinal Peak systolic flow velocities within the mid aorta axis. measure 114.0 cm/sec. Mid aorta measures2.04 x 2.07cm. in cross- Unable to visualize distal AO. sectional axis. Mid aorta measures1.92cm. in longitudinal axis. Unable to visualize distal AO. Left Iliac Artery Unable to visualize. Right Iliac Artery Unable to visualize. Procedure Aorta IVC Iliac vasculature or bypass grafts [id number]. The exam was of poor technical quality due to Patient positioning, inability to lay flat, bowel gas.. Limited Views obtained. Exam performed in department. VL/Abd Aortic/IVC Duplex scan Interpretation Summary Limited views but aorta where seen appears normal. Ordering Physician: Scooter Mckenna Referring Physician: MD Scooter Mckenna Performed By: Leighton Argueta RVT
--- NOTE | 2023-06-08 08:01 | ART_ITS ---
Reason For Study: Aftercare Procedure A bilateral lower extremity continuous wave Doppler with analog waveform analysis and ankle brachial indexes. Left Segmental Pressures Left brachial= 173mmHg. Left posterior tibial artery = 195mmHg. Left dorsalis pedis artery = 167mmHg. Left digit = 65 mmHg. The left posterior tibial artery waveforms are triphasic. The left dorsalis pedis waveforms are triphasic. Right Segmental Pressures Right brachial= 174mmHg. Right posterior tibial artery = 168mmHg. Right dorsalis pedis artery = 152mmHg. Right digit = 86 mmHg. The right posterior tibial artery waveforms are triphasic. The right dorsalis pedis waveforms are triphasic. Indices The right ankle brachial index by the posterior tibial artery is 0.97. The right ankle brachial index by the dorsalis pedis is 0.87. The right digital-brachial index is 0.49. The left ankle brachial index by the posterior tibial artery is 1.12. The left ankle brachial index by the dorsalis pedis is 0.96. The left digital-brachial index is 0.37. VL/Ankle Brachial Index Interpretation Summary Normal at rest with CLARENCE's listed. Bilateral small vessel disease. Ordering Physician: Scooter Mckenna Referring Physician: Paulie Hernandez Performed By: Leighton Argueta RVT
--- OUTSIDE RECORDS SUMMARY | 2023-06-08 08:13 | XMS RPT_ITS | CCD ---
Author Name Unknown Address [address] [place] [address] Organization [facility] Care Team Providers Care Beauty Specialist Name Role Phone Efrain Iraheta Unavailable Unavailable Efrain Iraheta Unavailable Unavailable Efrain Iraheta Unavailable Unavailable Nat Hernandez Unavailable Unavailable Nat Hernandez Primary Care Provider [phone] NAT HERNANDEZ DO Primary Care Physician [phone] NAT HERNANDEZ DO Primary Care Physician [phone] NAT HERNANDEZ DO Primary Care Unavailable ERNESTINE EVANGELISTA Attending Unavailab NAT Nowak DO Primary Care Unavailable ERNESTINE EVANGELISTA Attending Unavailab karian Allergies Allergy Classification Reported Allergen(s) Allergy Type Date of Onset Reaction(s) Facility (5 sources) Acetaminophen; Translations: [acetaminophen] Drug Allergy 8 Other (See Comments) [place], [place] (3 sources) Lisinopril; Translations: [lisinopril] Drug Allergy 9 Swelling, Tongue swelling (finding) [place] (3 sources) predniSONE; Translations: [prednisone] Drug Allergy 8 Nausea Only [place] (1 source) Metformin And Related Propensity to adverse reactions to drug 8 [place] (2 sources) Hmg-Coa Reductase Inhibitors (Statins); Translations: [statins] Drug allergy muscle aching [facility] (2 sources) metFORMIN; Translations: [metformin] Drug Allergy Unknown [facility] (2 sources) [employer] COVID-19 Vaccine; Translations: [SARS-CoV-2 (COVID-19) mRNA BNT-162b2 mo] Drug allergy Eruption of skin (disorder) [facility] (1 source) oxyCODONE; Translations: [oxycodone] Drug Allergy Oxygen saturation below reference range (finding) [facility] Medications Current Medications Medication Drug Class(es) Dates Sig (Normalized) Sig (Original) Albuterol (1 source) beta2-Adrenergic Agonist Start: 05-14-2020 take 1 puff(s) by inhalation every four hours as needed for wheezing Ventolin HFA MDI (90 mcg/inh) inhalation aerosol 1 puff(s), Inhalation, q4h, PRN as needed for wheezing, # 3 EA, 3 Refill(s), Pharmacy: [facility], Exercise-induced asthma, 157, cm, 05/03/20 13:56:00 EST, Height, kg, 05/03/20 13:56:00 EST, Dosing Weight Start Date: 05/14/20 Status: Ordered aspirin 81 mg delayed release oral tablet (3 sources) Platelet Aggregation Inhibitor, Nonsteroidal Anti-inflammatory Drug Start: 08-29-2017 aspirin 81 mg oral delayed release tablet Dose : 81 mg = 1 tab(s), Oral, qHS, 0 Refill(s) Start Date: 08/29/17 Status: Ordered Completed/Discontinued Medications Medication Drug Class(es) Dates Sig (Normalized) Sig (Original) meloxicam 15 mg oral tablet (2 sources) Nonsteroidal Anti-inflammatory Drug Start: 08-04-2020 End: 01-31-2021 meloxicam 15 mg oral tablet Dose : 15 mg = 1 tab(s), Oral, qDay, # 90 tab(s), 1 Refill(s), Pharmacy: [facility], 157, cm, 08/02/20 14:29:00 EDT, Height, kg, 08/02/20 14:29:00 EDT, Dosing Weight Start Date: 08/04/20 Stop Date: 01/31/21 Status: Ordered Problems Active Problems Problem Classification Problem Date Documented Date Episodic/Chronic Anxiety disorders (2 sources) Chronic anxiety 06-20-2019 Chronic Asthma (2 sources) Exercise-induced asthma 05-03-2020 Chronic Chronic obstructive pulmonary disease and bronchiectasis (1 source) Chronic obstructive lung disease 07-01-2021 Chronic Congestive heart failure; nonhypertensive (1 source) Left ventricular cardiac dysfunction; Translations: [LV dysfunction] Onset: 8 01-28-2018 Chronic Coronary atherosclerosis and other heart disease (3 sources) Coronary arteriosclerosis in [place] artery; Translations: [Coronary arteriosclerosis] Onset: 8 04-01-2018 Chronic Deficiency and other anemia (2 sources) Anemia 03-24-2019 Episodic Diabetes mellitus without complication (2 sources) Diabetes mellitus 06-20-2019 Chronic Disorders of lipid metabolism (2 sources) Pure hypercholesterolemia 10-03-2019 Chroni c Essential hypertension (2 sources) Essential hypertension 06-04-2019 Chronic Heart valve disorders (5 sources) History of aortic valve replacement; Translations: [Aortic valve stenosis] Onset: 8 02-01-2018 Chronic Miscellaneous mental health disorders (2 sources) Primary insomnia 01-02-2020 Chronic Mood disorders (2 sources) Depressive disorder; Translations: [Mild major depression, single episode] 11-27-2019 Chronic Past or Other Problems Problem Classification Problem Date Documented Da te Episodic/Chronic Unclassified (1 source) ABNORMAL STRESS, ANGINA Onset: 06-18-2017 Results Test Name Value Interpretation Reference Range Facil ity Encounters Encounter Date Encounter Type Care Provider Facility Start: 01-23-2023 End: 01-24-2023 ambulatory [facility] Facility:B Start: 06-21-2022 End: 06-22-2022 ambulatory [facility] Facility:B Start: 06-21-2022 End: 06-21-2022 Patient encounter procedure 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 [facility] Start: 04-01-2021 End: 04-05-2021 Outreach Lab NAT HERNANDEZ [facility] Start: 03-19-2019 End: 03-19-2019 Subsequent hospital visit by physician Kylie Stahl Work Phone: [facility] [address] Procedures Date Procedure Procedure Detail Performing Clinician Start: 10-14-2021 After-cataract of bi lateral eyes 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 MEYER 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 Start: 03-19-2019 Echo tthrc r-t 2d w/ wom-mode compl spec&colr d Kylie Stahl Work Phone: Start: 04-01-2018 Percutaneous replace ment of aortic valve using fluoroscopic guidance NAT HERNANDEZ DO Appendectomy NAT HERNANDEZ DO Cardiac catheterization ROBE RT JAERT [employer] Cataract (morphologi c abnormality) ERNESTINE MEYER 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-[employer] Coronary artery bypa ss graft operation planned [email or web address] Fused structure (mor phologic abnormality) NAT HERNANDEZ [employer] Plan of Treatment Date Care Activity Detail Author Start: 05-17-2019 Creatinine monitoring Creatinine mon itoring [place] Start: 05-17-2019 Potassium monitoring Potassium monit [place]ing [place] Start: 12-15-2018 Influenza vaccination Flu vaccine (# 1) [place] Start: 10-06-2018 Annual Wellness Visi t (AWV) Annual Wellness Visit (AWV) [place] Start: 2013 DEXA (modify frequen cy per FRAX score) DEXA (modify frequency per FRAX score) [place] Start: 2013 Pneumococcal 65+ yea rs Vaccine (1 of 1 - PPSV23) Pneumococcal 65+ years Vaccine (1 of 1 - PPSV23) [place] Start: 1998 [facility] [place] Start: 1998 Colon cancer screen colonoscopy Colon cancer screen colonoscopy [place] Start: 1998 Shingles Vaccine (1 of 2) Shingles V accine (1 of 2) [place] Start: 1988 Lipid screen Lipid screen [place], [place] Start: 09-21-1959 DTaP/Tdap/Td vaccine (1 - Tdap) DTaP/Tdap/Td vaccine (1 - Tdap) [place], [place] Start: 1948 Hepatitis C screen Hepatitis C alayna hauser [place] Immunizations Immunization Date Immunization Notes Care Provider Nikki live 04-16-2003 tetanus and diphther ia toxoids, adsorbed, preservative free, for adult use (5 Lf of tetanus toxoid and 2 Lf of diphtheria toxoid) [email or web address] [facility] 03-15-2003 diphtheria and tetan us toxoids, adsorbed for pediatric use NAT [employer] [facility] Payers Date Payer Category Payer Medicare [id number] 2022 Unknown [id number] 2014 Medicare MEDICARE MEDICAR E PART A AND B xxxxxxxxxxx 2014-Present [phone] [place] [address] xxxxxxxxxxx [id number] 2014 Unknown [employer] xxxxxxxxxx 2014-Present [phone] [address] [place] [address] xxxxxxxxxx 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 alcohol (finding) [facility] Sex Assigned At Not on file [place], [place] Sex Assigned At Female [facility] Medical Equipment Procedure Code Equipment Code Equipment Origin al Text Equipment Identifier Dates FDA Start: 08-30-2017 Unknown Unknown 08/30/17 Unknown Unknown FDA Start: 08-30-2017 Evaluation + Plan note Laboratory Note Date & Type Note Facility Evaluation + Plan note Future Appointments Appointment Date:06/15/2021 03:00:00 PM Scheduled Provider:ERNESTINE MEYER Location:[facility] Appointment Type:CV OV Appointment Date:07/01/2021 04:00:00 PM Scheduled Provider:NAT HERNANDEZ DO Location:[facility] Appointment Type:PC OV Future Scheduled TestsBasic Metabolic Panel 03/16/21N-Terminal proBNP 03/16/21Lipid Profile 03/16/21 [facility] Evaluation + Plan note Note Date & Type Note Facility Evaluation + Plan note Future Appointments Appointment Date:06/29/2022 02:30:00 PM Scheduled Provider:NAT HERNANDEZ DO Location:[facility] Appointment Type:PC OV Appointment Date:01/10/2023 01:00:00 PM Scheduled Provider:ERNESTINE MEYER Location:[facility] Appointment Type:CV OV [facility] Hospital course Narrative Note Date & Type Note Facility Hospital course Narrative No data available for this section [facility] Hospital Discharge instructions Note Date & Type Note Facility Hospital Discharge instructions No data available for this section [facility] Progress note Note Date & Type Note Facility Progress note No data available for this section [facility] Summary Purpose Family History No Family History Records FoundNo Family History Records FoundNo Family History Records FoundNo Family History Records Found Advance Directives No Advanced Directives Records FoundDocuments on File Type Date Recorded 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 Expl 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 Advance Directives and Living Will Power of Medical Care Administrator Latest Code Status on File Code Status Date Activated Date Inactivated Comments Full Code 04/01/2018 2:23 PM 04/02/2018 6:13 PM Full Code 04/01/2018 10:31 AM 04/01/2018 2:20 PM Full Code 02/28/2018 2:43 PM 03/01/2018 3:28 PM Full Code 02/28/2018 7:32 AM 02/28/2018 2:43 PM Reason for Referral Status Reason Specialty Diagnoses / Procedures Referre d By Contact Referred To Contact Closed Cardiology Diagnoses S/P TAVR (transcatheter aortic valve replacement) Procedures ECHO Complete 2D W Doppler W Color Kylie Stahl, 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 - 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 [address] [place] [id number] Assessments Diagnosis S/P TAVR (transcatheter aortic valve replacement) Additional Source Comments INFORMATION SOURCE (unrecogn ized section and content) DATE CREATED AUTHOR AUTHOR'S ORGANIZ ATION 11/15/2018 [facility] DATE CREATED AUTHOR AUTHOR'S ORGANIZ ATION 04/14/2019 [facility] DATE CREATED AUTHOR AUTHOR'S ORGANIZ ATION 01/25/2023 [facility] Care Team (unrecognized sect ion and content) Care Team Personnel Name: NAT HERNANDEZ DO Position: P4 Physician - Primary Care Member Role: Primary Care Physician Address: Address: [address] [place] [address] Care Team Related Persons Name: HAKEEMCHAN Address: [address] [id number] FOR RECORDS PERTAINING TO PATIENTS WHO ARE OR HAVE BEEN ENROLLED IN A CHEMICAL DEPENDENCY/SUBSTANCEABUSE PROGRAM, SOME INFORMATION MAY BE OMITTED. This clinical summary was aggregated from multiple sources. Caution should be exercised in using it in the provision of clinical care. This summary normalizes information from multiple sources, and as a consequence, information in this document may materially change the coding, format and clinical context of patient data. In addition, data may be omitted in some cases. CLINICAL DECISIONS SHOULD BE BASED ON THE PRIMARY CLINICAL RECORDS. [facility] [employer] [facility]. provides no warranty or guarantee of the accuracy or completeness of information in this document.
== END | disposition home or self-care (01) ==
LOC: CVS 07:57
PROVIDERS: PCP Preventive Medicine Occupational Medicine; Referring Provider Surgery Vascular Surgery; Visit Provider Surgery Vascular Surgery
DX: I65.23 Occlusion and stenosis of bilateral carotid arteries (principal); I77.1 Stricture of artery; I70.213 Atherosclerosis of native arteries of extremities with intermittent claudication, bilateral legs; Z48.812 Encounter for surgical aftercare following surgery on the circulatory system
CPT/HCPCS: 93880; 93922; 93978

== ENCOUNTER → 2023-07-31 | Outpatient (CLI) | payer MEDICARE, OTHER, SELFPAY ==
--- NOTE | 2023-07-31 14:52 | CT_ITS ---
HISTORY: HX NICOTINE DEP. TECHNIQUE: Helically acquired images were obtained of the chest without contrast. A radiation dose optimization technique was used for this scan. 487 images. COMPARISON: 07/26/2022. FINDINGS: LARGE AIRWAYS: Patent. LUNGS: Mild centrilobular emphysema. 2 mm left perifissural nodule again seen on image 98 of series 2. No new nodule or acute alveolar consolidation. PLEURA: No pneumothorax or significant pleural effusion. HEART/PERICARDIUM: Heart within normal limits in size with coronary artery disease. Midline sternotomy with aortic valve prosthesis present. No pericardial effusion. VESSELS: Thoracic aorta nondilated. Atherosclerosis present. MEDIASTINUM/PABLO: No pathologically enlarged adenopathy. BONES: Degenerative change. Posterior spinal fusion hardware of the lumbar spine. CT/Low Dose CT Lung Screening IMPRESSION: Lung-RADS category 2: Continue annual screening with low dose CT. Electronically Signed: Jacklyn Samuels MD at 13:44 EDT ,
== END | disposition home or self-care (01) ==
LOC: CT 14:51
PROVIDERS: PCP Preventive Medicine Occupational Medicine; Referring Provider Internal Medicine Pulmonary Disease; Visit Provider Internal Medicine Pulmonary Disease
DX: Z87.891 Personal history of nicotine dependence (principal)
CPT/HCPCS: 71271

== ENCOUNTER → 2023-10-03 | Outpatient (CLI) | payer MEDICARE, OTHER, SELFPAY ==
[2023-10-03 13:23] LABS: Absolute Eosinophil Count 0.11 X10^3/uL (0.0-0.23); Hematocrit 39.9 % (37-47); Hemoglobin 13.3 g/dL (12.0-15.0); Mean Corp Hgb Conc 33.3 g/dL (32-36); Mean Corpuscular Hgb 30.4 pg (27.0-32.0); Mean Corpuscular Volume 91.3 fL (81-99); Mean Platelet Vol. 10.2 fl (6.2-12.0); Platelet Count 220 K/mm3 (150-450); RBC Distribution Width CV 13.3 % (11.6-14.6); RBC Distribution Width SD 45.1 fl (35.1-43.9); Red Blood Count 4.37 M/mm3 (4.2-5.4); White Blood Count 5.5 K/mm3 (4.4-11.0)
[2023-10-03 13:39] LABS: Protein, Urine (Random) 26.6 mg/dL (<11.9); Protein:Creat Ratio 180 mg/g CRE (0-200)
[2023-10-03 13:45] LABS: Albumin, Serum 3.3 g/dL (3.2-5.0); BUN 30 mg/dL (7-18); BUN/Creat Ratio 19.5 RATIO (10-20); Chloride 104 mmol/L (98-107); Creatinine, Serum 1.54 mg/dL (0.55-1.02); EST Glomerular Filtration Rate 35 mL/min (>60); Est Glom Filt Rate - Afr Amer 42 mL/min (>60); Glucose 116 mg/dL (74-106); Phosphorus 4.3 mg/dL (2.5-4.9); Potassium 4.4 mmol/L (3.5-5.1); Sodium Level 139 mmol/L (136-145)
[2023-10-05 15:09] LABS: PROEL- A/G Ratio 1.1 (0.7-1.7); PROEL- Albumin 3.4 g/dL (2.9-4.4); PROEL- Alpha-1 Globulin 0.2 g/dL (0.0-0.4); PROEL- Alpha-2 Globulin 0.8 g/dL (0.4-1.0); PROEL- Beta Globulin 0.9 g/dL (0.7-1.3); PROEL- Gamma Globulin 1.1 g/dL (0.4-1.8); PROEL- Globulin, Total 3.1 g/dL (2.2-3.9); PROEL- TOTAL PROTEIN 6.5 g/dL (6.0-8.5); PROEL-M-Spike Not Observed g/dL (Not Observed)
== END | disposition home or self-care (01) ==
LOC: LAB 12:18
PROVIDERS: PCP Preventive Medicine Occupational Medicine; Referring Provider Internal Medicine Nephrology; Visit Provider Internal Medicine Nephrology
DX: N18.4 Chronic kidney disease, stage 4 (severe) (principal)
CPT/HCPCS: 36415; 80069; 82570; 84156; 84165; 85027; 85048

== ENCOUNTER → 2024-01-14 | Outpatient (CLI) | payer MEDICARE, OTHER, SELFPAY ==
[2024-01-14 16:34] LABS: Protein, Urine (Random) 11.4 mg/dL (<11.9); Protein:Creat Ratio 219 mg/g CRE (0-200)
[2024-01-14 16:51] LABS: Albumin, Serum 3.4 g/dL (3.2-5.0); BUN 41 mg/dL (7-18); BUN/Creat Ratio 29.1 RATIO (10-20); Calcium,Total 9.1 mg/dL (8.5-10.1); Chloride 105 mmol/L (98-107); Creatinine, Serum 1.41 mg/dL (0.55-1.02); EST Glomerular Filtration Rate 39 mL/min (>60); Est Glom Filt Rate - Afr Amer 47 mL/min (>60); Glucose 129 mg/dL (74-106); Phosphorus 3.3 mg/dL (2.5-4.9); Potassium 4.4 mmol/L (3.5-5.1); Sodium Level 137 mmol/L (136-145)
== END | disposition home or self-care (01) ==
LOC: LAB 15:28
PROVIDERS: PCP Preventive Medicine Occupational Medicine; Referring Provider Internal Medicine Nephrology; Visit Provider Internal Medicine Nephrology
DX: N18.4 Chronic kidney disease, stage 4 (severe) (principal)
CPT/HCPCS: 36415; 80069; 82570; 84156

== ENCOUNTER → 2024-07-31 | Outpatient (CLI) | payer MEDICARE, OTHER, SELFPAY ==
--- NOTE | 2024-07-31 13:10 | CT_ITS ---
PROCEDURE: LOW DOSE CT LUNG SCREENING 07/31/2024 REASON FOR EXAM: NICOTINE DEPENDENCE Former smoker. Patient has smoked 1 pack per day for 50 years. TECHNIQUE: Low Dose CT Lung screening without contrast. Coronal and Sagittal reconstruction series were provided. One or more dose reduction techniques were used (e.g., Automated exposure control, adjustment of the mA and/or kV according to patient size, use of iterative reconstruction technique). REFERENCE LINK: [facility] Lung-RADS RADIATION DOSE SUMMARY: CTDlvol: 4.02 mGy DLP: 129.89 mGycm COMPARISON: None. FINDINGS: PULMONARY NODULES: (Only nodules >3mm are reported) Nodules described below are on series 1 unless otherwise specified. Pulmonary Nodules: No suspicious nodules seen. Hardware:Prior midline sternotomy and aortic valve replacement. Lymph Nodes:No suspicious lymph node seen. Heart and Vasculature:Cardiomegaly. No pericardial effusion.Atherosclerotic calcifications of the thoracic aorta. Thoracic aorta and pulmonary arteries have normal contours; noncontrast technique limits evaluation. Coronary Artery Calcifications: Present Lungs and Airways: Mild emphysematous changes are present. Pleura:Unremarkable Upper Abdomen:Unremarkable Bones:Degenerative changes of the thoracic spine. CT/Low Dose CT Lung Screening IMPRESSION: No suspicious nodules seen. Coronary artery calcification (CAC) is is present Lung-RADS Category: 2 BENIGN (BASED ON IMAGING FEATURES OR INDOLENT BEHAVIOR). RECOMMEND 12-MONTH SCREENING LDCT. Other Significant Findings: None. Reading Location: [place] [address]
== END | disposition home or self-care (01) ==
LOC: CT 13:02
PROVIDERS: PCP Preventive Medicine Occupational Medicine; Referring Provider Internal Medicine Pulmonary Disease; Visit Provider Internal Medicine Pulmonary Disease
DX: Z87.891 Personal history of nicotine dependence (principal)
CPT/HCPCS: 71271

== ENCOUNTER → 2024-08-01 | Outpatient (CLI) | payer MEDICARE, OTHER, SELFPAY ==
--- NOTE | 2024-08-01 09:02 | ART_ITS ---
Reason For Study Reason For Study: Aftercare Procedure A bilateral lower extremity continuous wave Doppler with analog waveform analysis and ankle brachial indexes. Left Segmental Pressures Left brachial= 184mmHg. Left posterior tibial artery = 164mmHg. Left dorsalis pedis artery = 153mmHg. Left digit = 86 mmHg. The left posterior tibial artery waveforms are biphasic. The left dorsalis pedis waveforms are biphasic. Right Segmental Pressures Right brachial= 181mmHg. Right posterior tibial artery = 143mmHg. Right dorsalis pedis artery = 134mmHg. Right digit = 88 mmHg. The right posterior tibial artery waveforms are biphasic. The right dorsalis pedis waveforms are biphasic. Indices The right ankle brachial index by the posterior tibial artery is 0.78. The right ankle brachial index by the dorsalis pedis is 0.73. The right digital-brachial index is 0.48. The left ankle brachial index by the posterior tibial artery is 0.89. The left ankle brachial index by the dorsalis pedis is 0.83. The left digital-brachial index is 0.47. VL/Ankle Brachial Index Interpretation Summary Resting ankle-brachial indices appear mildly abnormal bilaterally. The left res ting ankle-brachial index appears mildly abnormal. Ordering Physician: Scooter Mckenna Referring Physician: Paulie Hernadnez Performed By: Leighton Argueta RVT
--- NOTE | 2024-08-01 09:02 | CDU_ITS ---
Reason For Study Reason For Study: Carotid Stenosis Rt. Velocities/BP Lt. Velocities/BP Subclavian artery 282.2/13.9 cm/sec. Prox CCA 203.6/46.7 cm/sec. Prox CCA 39.3/5.3 cm/sec. Mid CCA 156.5/34.9 cm/sec. Mid CCA 21.4/4.3 cm/sec. Dist CCA 176.2/46.7 cm/sec. Dist CCA 24.2/2.5 cm/sec. Prox ICA 223.2/38.8 cm/sec. Prox ICA 56.0/15.4 cm/sec. Mid ICA 262.5/31.0 cm/sec. Mid ICA 48.5/13.5 cm/sec. Dist ICA 111.8/32.1 cm/sec. Dist ICA 32.4/12.6 cm/sec. Lt. ICA/CCA = 1.7. Rt. ICA/CCA = 2.6. Prox ECA 251.9/24.3 cm/sec. Prox ECA 88.2/17.1 cm/sec. Lt. Vert. 71.0/18.2 cm/sec. Rt. Vert. 79.8/16.0 cm/sec. Right Extracranial There is heterogeneous, irregular atherosclerotic plaque noted in the right common carotid artery. The atherosclerotic plaque causes acoustic shadowing. Elevated velocities noted in Rt Subclavian converting to drumbeat flow throughout the CCA. There is heterogeneous, irregular atherosclerotic plaque noted in the right internal carotid artery. The atherosclerotic plaque causes acoustic shadowing. There is heterogeneous, irregular atherosclerotic plaque noted in the right external carotid artery. The atherosclerotic plaque causes acoustic shadowing. Antegrade flow is noted in the right vertebral artery. Left Extracranial There is heterogeneous, irregular atherosclerotic plaque noted in the left common carotid artery. There is heterogeneous, irregular atherosclerotic plaque noted in the left internal carotid artery. The atherosclerotic plaque causes acoustic shadowing. The left external carotid artery is not well visualized. The atherosclerotic plaque causes acoustic shadowing. Antegrade flow is noted in the left vertebral artery. Procedure Carotid Duplex [id number]. This is a Carotid Duplex examination using B-mode, color flow and specral Doppler. The study was technically difficult. Exam performed in department. VL/Carotid Duplex Ultrasound Interpretation Summary Mild (<50%) stenosis right extracranial internal carotid. Moderate (50-69%) igor nosis left extracranial internal carotid. Flow within the vertebral arteries is antegrade bilaterally. Ordering Physician: Scooter Mckenna Referring Physician: Paulie Garduno Performed By: Leighton Argueta RVT
== END | disposition home or self-care (01) ==
LOC: CVS 09:01
PROVIDERS: PCP Preventive Medicine Occupational Medicine; Referring Provider Surgery Vascular Surgery; Visit Provider Surgery Vascular Surgery
DX: I65.23 Occlusion and stenosis of bilateral carotid arteries (principal); I70.213 Atherosclerosis of native arteries of extremities with intermittent claudication, bilateral legs; I77.1 Stricture of artery
CPT/HCPCS: 93880; 93922

== ENCOUNTER → 2025-01-12 | Outpatient (CLI) | payer MEDICARE, OTHER, SELFPAY ==
--- OUTSIDE RECORDS SUMMARY | 2024-12-24 08:32 | XMS RPT_ITS ---
Author Name Auto Generated Organization [facility] Care Team Providers Care Graphic Designer Name Role Phone MARIVEL TREVIÑO DO Attending Unavailable TREVIÑO DO, MARIVEL E Primary Care Unavailable TREVIÑO DO, MARIVEL E Attending Unavailable TREVIÑO DO, MARIVEL E Primary Care Unavailable TREVIÑO DO, MARIVEL E Primary Care Unavailable BETSY SALES CLERK-TRIAGE TECHNICIANERNESTINE Attending Unavailab le TREVIÑO DO, MARIVEL E Primary Care Unavailable TREVIÑO DO, MARIVEL E Attending Unavailable TREVIÑO DO, MARIVEL E Primary Care Unavailable TREVIÑO DO, MARIVEL E Attending Unavailable TREVIÑO DO, MARIVEL E Primary Care Unavailable TREVIÑO DO, MARIVEL E Attending Unavailable TREVIÑO DO, MARIVEL E Primary Care Unavailable TREVIÑO DO, MARIVEL E Attending Unavailable NAT RAYGOZA DO Primary Care Unavailable JARET VERGARA, NAT Attending Unavailable PROBLEMS DATE TYPE CONDITION / CODE ATTENDING STATUS [facility] 12/17/2024 Final Diagnosis (Discharge) Encounter for general adult medical examination without abnormal findings / Z00.00(ICD-10) MARIVEL TREVIÑO DO [facility] 12/17/2024 Final Diagnosis (Discharge) Chronic kidney disease, stage 3 unspecified / N18.30(ICD-10) MARIVEL TREVIÑO DO [facility] 12/17/2024 Final Diagnosis (Discharge) Essential (primary) hypertension / I10(ICD-10) MARIVEL TREVIÑO DO [facility] PROCEDURES No Procedure Records Found RESULTS CBC Collected: 4:15 PM Status: F Source: [facility] TYPE CODE TESTS RESULT OUT OF RANGE REFERENCE UNITS LAB WBC(LOINC) WBC 5.4 4.5-10.8 10 3/mcL LAB RBCCT(LOINC) RBC 3.63 Low 4.10-5.30 10 6/mcL LAB HGB(LOINC) Hgb 11.0 Low 12.0-16.0 G/dL LAB HCT(LOINC) Hct 33.1 Low 34.0-46.0 % LAB MCV(LOINC) MCV 91.0 80.0-99.0 fL LAB MCH(LOINC) MCH 30.2 27.0-33.0 pg LAB MCHC(LOINC) MCHC 33.2 32.0-36.0 G/dL LAB RDW(LOINC) RDW 16.5 High 11.5-15.5 % LAB PLT(LOINC) Platelet 234 150-450 10 3/mcL LAB MPV(LOINC) MPV 8.3 6.6-10.5 fL Performed By: #### ANEU, BMP , FERR, ADIFF, MG, GFR, FES, CBC, PBNP #### [address] [address] .AUTO DIFF Collected: 12/17/2024 4:15 PM Status: F Source: [facility] TYPE CODE TESTS RESULT OUT OF RANGE REFERENCE UNITS LAB ELEANOR(LOINC) Neutrophil % 59.7 50.0-75.0 % LAB LYM(LOINC) Lymphocyte % 25.6 20.0-40.0 % LAB MON(LOINC) Monocyte % 12.0 2.0-13.0 % LAB EO(LOINC) Eosinophil % 2.0 0.0-6.0 % LAB BAS(LOINC) Basophil % 0.7 0.0-2.5 % LAB ABLYM(LOINC) Lymphocyte, Absolute 1.4 0.9-4.3 10 3/mcL LAB ELOISE(LOINC) Monocyte, Absolute 0.6 0.1-1.4 10 3/mcL LAB AEOS(LOINC) Eosinophil, Absolute 0.1 0.0-0.7 10 3/mcL LAB ABAS(LOINC) Basophil, Absolute 0.0 0.0-0.3 10 3/mcL Performed By: #### ANEU, BMP , FERR, ADIFF, MG, GFR, FES, CBC, PBNP #### [address] [address] .NEUABS Collected: 4:15 PM Status: F Source: [facility] TYPE CODE TESTS RESULT OUT OF RANGE REFERENCE UNITS LAB ANEU(LOINC) Neutrophil, Absolute 3.2 2.3-8.1 10 3/mcL Performed By: #### ANEU, BMP , FERR, ADIFF, MG, GFR, FES, CBC, PBNP #### [address] [address] FES Collected: 4:15 PM Status: F Source: [facility] TYPE CODE TESTS RESULT OUT OF RANGE REFERENCE UNITS LAB FE(LOINC) Iron 86 50-170 mcg/dL LAB IBC(LOINC) TIBC 287 250-450 mcg/dL LAB FESAT(LOINC) Iron Sat 30 % Performed By: #### ANEU, BMP , FERR, ADIFF, MG, GFR, FES, CBC, PBNP #### [address] [address] BMP Collected: 12/17/2024 4:15 PM Status: F Source: [facility] TYPE CODE TESTS RESULT OUT OF RANGE REFERENCE UNITS LAB GLU(LOINC) Glucose Level 111 High 83-110 mg/dL LAB NA(LOINC) Sodium Level 134 Low 136-145 mmol/L LAB K(LOINC) Potassium Level 5.1 3.5-5.1 mmol/L LAB CL(LOINC) Chloride 98 98-107 mmol/L LAB CO2(LOINC) CO2 33 High 23-31 mmol/L LAB EBAL(LOINC) Electrolyte Balance 3.0 Low 4.0-15.0 mEq/L LAB BUN(LOINC) BUN 44 High 7-18 mg/dL LAB CRE(LOINC) Creatinine Lvl (s) 1.76 High 0.51-0.95 mg/dL LAB BC(LOINC) BUN/Creatinine Ratio 25 7-27 ratio LAB CA(LOINC) Calcium Lvl 9.3 8.4-10.2 mg/dL Performed By: #### ANEU, BMP , FERR, ADIFF, MG, GFR, FES, CBC, PBNP #### [address] [address] FERR Collected: 4:15 PM Status: F Source: [facility] TYPE CODE TESTS RESULT OUT OF RANGE REFERENCE UNITS LAB FERR(LOINC) Ferritin 38.0 8.0-252.0 ng/mL Performed By: #### ANEU, BMP , FERR, ADIFF, MG, GFR, FES, CBC, PBNP #### [address] [address] MG Collected: 12/17/2024 4:15 PM Status: F Source: [facility] TYPE CODE TESTS RESULT OUT OF RANGE REFERENCE UNITS LAB MG(LOINC) Magnesium Lvl 2.2 1.8-2.4 mg/dL Performed By: #### ANEU, BMP , FERR, ADIFF, MG, GFR, FES, CBC, PBNP #### [address] [address] PBNP Collected: 12/17/2024 4:15 PM Status: F Source: [facility] TYPE CODE TESTS RESULT OUT OF RANGE REFERENCE UNITS LAB PBNP(LOINC) N-Terminal proBNP 1013 High 0-450 pg/mL Result Comment: NT-proBNP re sults of less than 300 pg/mL effectively rules out acute congestive heart failure with 99% negative predictive value. Performed By: #### ANEU, BMP , FERR, ADIFF, MG, GFR, FES, CBC, PBNP #### [address] [address] .GFR Collected: 12/17/2024 4:15 PM Status: F Source: [facility] TYPE CODE TESTS RESULT OUT OF RANGE REFERENCE UNITS LAB eGFR(LOINC) Estimated Glomerular Filtration Rate 30 ml/min/1. 73sqm Result Comment: Stages of Chronic Kidney Disease (CKD) Stage Description eGFR(ml/min/1.73 sq.m.) CKD 1 Normal kidney function or >=90 normal kindney function with possible kidney damage (ex. Proteinuria) CKD 2 Kidney damage with mild loss 60-89 of kidney function CKD 3a Mild to moderate loss of kidney 45-59 function CKD 3b Moderate to severe loss of 30-44 of kindey function CKD 4 Severe loss of kidney function 15-29 CKD 5 Kidney failure <15 Note: (go live 2024) the eGFR calculation was updated to the 2020 CKD-EPI creatinine equation without a race factor to calculate the eGFR results. Performed By: #### ANEU, BMP , FERR, ADIFF, MG, GFR, FES, CBC, PBNP #### [address] [address] CBC Collected: 3:29 PM Status: F Source: [facility] TYPE CODE TESTS RESULT OUT OF RANGE REFERENCE UNITS LAB WBC(LOINC) WBC 7.1 4.5-10.8 10 3/mcL LAB RBCCT(LOINC) RBC 3.23 Low 4.10-5.30 10 6/mcL LAB HGB(LOINC) Hgb 9.7 Low 12.0-16.0 G/dL LAB HCT(LOINC) Hct 29.1 Low 34.0-46.0 % LAB MCV(LOINC) MCV 90.2 80.0-99.0 fL LAB MCH(LOINC) MCH 30.0 27.0-33.0 pg LAB MCHC(LOINC) MCHC 33.3 32.0-36.0 G/dL LAB RDW(LOINC) RDW 17.7 High 11.5-15.5 % LAB PLT(LOINC) Platelet 230 150-450 10 3/mcL LAB MPV(LOINC) MPV 8.7 6.6-10.5 fL Performed By: #### ANEU, BMP , MG, CBC, GFR, TSHR, ADIFF, FT4 #### [address] [address] .AUTO DIFF Collected: 12/04/2024 3:29 PM Status: F Source: [facility] TYPE CODE TESTS RESULT OUT OF RANGE REFERENCE UNITS LAB ELEANOR(LOINC) Neutrophil % 66.2 50.0-75.0 % LAB LYM(LOINC) Lymphocyte % 19.0 Low 20.0-40.0 % LAB MON(LOINC) Monocyte % 12.0 2.0-13.0 % LAB EO(LOINC) Eosinophil % 2.2 0.0-6.0 % LAB BAS(LOINC) Basophil % 0.6 0.0-2.5 % LAB ABLYM(LOINC) Lymphocyte, Absolute 1.4 0.9-4.3 10 3/mcL LAB ELOISE(LOINC) Monocyte, Absolute 0.9 0.1-1.4 10 3/mcL LAB AEOS(LOINC) Eosinophil, Absolute 0.2 0.0-0.7 10 3/mcL LAB ABAS(LOINC) Basophil, Absolute 0.0 0.0-0.3 10 3/mcL Performed By: #### ANEU, BMP , MG, CBC, GFR, TSHR, ADIFF, FT4 #### [address] [address] .NEUABS Collected: 3:29 PM Status: F Source: [facility] TYPE CODE TESTS RESULT OUT OF RANGE REFERENCE UNITS LAB ANEU(LOINC) Neutrophil, Absolute 4.7 2.3-8.1 10 3/mcL Performed By: #### ANEU, BMP , MG, CBC, GFR, TSHR, ADIFF, FT4 #### [address] [address] BMP Collected: 12/04/2024 3:29 PM Status: F Source: [facility] TYPE CODE TESTS RESULT OUT OF RANGE REFERENCE UNITS LAB GLU(LOINC) Glucose Level 134 High 83-110 mg/dL LAB NA(LOINC) Sodium Level 134 Low 136-145 mmol/L LAB K(LOINC) Potassium Level 4.9 3.5-5.1 mmol/L LAB CL(LOINC) Chloride 96 Low 98-107 mmol/L LAB CO2(LOINC) CO2 31 23-31 mmol/L LAB EBAL(LOINC) Electrolyte Balance 7.0 4.0-15.0 mEq/L LAB BUN(LOINC) BUN 51 High 7-18 mg/dL LAB CRE(LOINC) Creatinine Lvl (s) 1.85 High 0.51-0.95 mg/dL LAB BC(LOINC) BUN/Creatinine Ratio 28 High 7-27 ratio LAB CA(LOINC) Calcium Lvl 9.4 8.4-10.2 mg/dL Performed By: #### ANEU, BMP , MG, CBC, GFR, TSHR, ADIFF, FT4 #### [address] [address] MG Collected: 12/04/2024 3:29 PM Status: F Source: [facility] TYPE CODE TESTS RESULT OUT OF RANGE REFERENCE UNITS LAB MG(LOINC) Magnesium Lvl 2.8 High 1.8-2.4 mg/dL Performed By: #### ANEU, BMP , MG, CBC, GFR, TSHR, ADIFF, FT4 #### [address] [place], [place] [address] TSHR Collected: 3:29 PM Status: F Source: [facility] TYPE CODE TESTS RESULT OUT OF RANGE REFERENCE UNITS LAB TSH(LOINC) TSH 5.07 High 0.36-3.74 mcIU/mL Performed By: #### ANEU, BMP , MG, CBC, GFR, TSHR, ADIFF, FT4 #### [address] [place], [place] [address] .GFR Collected: 12/04/2024 3:29 PM Status: F Source: [facility] TYPE CODE TESTS RESULT OUT OF RANGE REFERENCE UNITS LAB eGFR(LOINC) Estimated Glomerular Filtration Rate 28 ml/min/1. 73sqm Result Comment: Stages of Chronic Kidney Disease (CKD) Stage Description eGFR(ml/min/1.73 sq.m.) CKD 1 Normal kidney function or >=90 normal kindney function with possible kidney damage (ex. Proteinuria) CKD 2 Kidney damage with mild loss 60-89 of kidney function CKD 3a Mild to moderate loss of kidney 45-59 function CKD 3b Moderate to severe loss of 30-44 of kindey function CKD 4 Severe loss of kidney function 15-29 CKD 5 Kidney failure <15 Note: (go live 2024) the eGFR calculation was updated to the 2020 CKD-EPI creatinine equation without a race factor to calculate the eGFR results. Performed By: #### ANEU, BMP , MG, CBC, GFR, TSHR, ADIFF, FT4 #### [address] [address] FT4 Collected: 3:29 PM Status: F Source: [facility] Order Comment: Ordered by Yas goins TYPE CODE TESTS RESULT OUT OF RANGE REFERENCE UNITS LAB FT4(LOINC) Free T4 1.08 0.76-1.46 ng/dL Performed By: #### ANEU, BMP , MG, CBC, GFR, TSHR, ADIFF, FT4 #### [address] [place], [place] [address] CBC Collected: 1:19 PM Status: F Source: [facility] TYPE CODE TESTS RESULT OUT OF RANGE REFERENCE UNITS LAB WBC(LOINC) WBC 8.4 4.5-10.8 10 3/mcL LAB RBCCT(LOINC) RBC 3.31 Low 4.10-5.30 10 6/mcL LAB HGB(LOINC) Hgb 9.6 Low 12.0-16.0 G/dL LAB HCT(LOINC) Hct 28.7 Low 34.0-46.0 % LAB MCV(LOINC) MCV 86.6 80.0-99.0 fL LAB MCH(LOINC) MCH 29.0 27.0-33.0 pg LAB MCHC(LOINC) MCHC 33.4 32.0-36.0 G/dL LAB RDW(LOINC) RDW 14.6 11.5-15.5 % LAB PLT(LOINC) Platelet 304 150-450 10 3/mcL LAB MPV(LOINC) MPV 8.4 6.6-10.5 fL Performed By: #### FERR, CBC , BMP, ADIFF, GFR, ANEU, FE, MG #### [address] [address] .AUTO DIFF Collected: 11/19/2024 1:19 PM Status: F Source: [facility] TYPE CODE TESTS RESULT OUT OF RANGE REFERENCE UNITS LAB ELEANOR(LOINC) Neutrophil % 70.5 50.0-75.0 % LAB LYM(LOINC) Lymphocyte % 17.5 Low 20.0-40.0 % LAB MON(LOINC) Monocyte % 10.1 2.0-13.0 % LAB EO(LOINC) Eosinophil % 1.4 0.0-6.0 % LAB BAS(LOINC) Basophil % 0.5 0.0-2.5 % LAB ABLYM(LOINC) Lymphocyte, Absolute 1.5 0.9-4.3 10 3/mcL LAB ELOISE(LOINC) Monocyte, Absolute 0.9 0.1-1.4 10 3/mcL LAB AEOS(LOINC) Eosinophil, Absolute 0.1 0.0-0.7 10 3/mcL LAB ABAS(LOINC) Basophil, Absolute 0.0 0.0-0.3 10 3/mcL Performed By: #### FERR, CBC , BMP, ADIFF, GFR, ANEU, FE, MG #### [address] [address] .NEUABS Collected: 1:19 PM Status: F Source: [facility] [place] [facility] [place] RESULT OUT OF RANGE REFERENCE UNITS LAB ANEU(LOINC) Neutrophil, Absolute 5.9 2.3-8.1 10 3/mcL Performed By: #### FERR, CBC , BMP, ADIFF, GFR, ANEU, FE, MG #### [address] [address] BMP Collected: 11/19/2024 1:19 PM Status: F Source: [facility] [place] [facility] [place] RESULT OUT OF RANGE REFERENCE UNITS LAB GLU(LOINC) Glucose Level 148 High 83-110 mg/dL LAB NA(LOINC) Sodium Level 138 136-145 mmol/L LAB K(LOINC) Potassium Level 4.9 3.5-5.1 mmol/L LAB CL(LOINC) Chloride 97 Low 98-107 mmol/L LAB CO2(LOINC) CO2 32 High 23-31 mmol/L LAB EBAL(LOINC) Electrolyte Balance 9.0 4.0-15.0 mEq/L LAB BUN(LOINC) BUN 64 High 7-18 mg/dL LAB CRE(LOINC) Creatinine Lvl (s) 1.99 High 0.51-0.95 mg/dL LAB BC(LOINC) BUN/Creatinine Ratio 32 High 7-27 ratio LAB CA(LOINC) Calcium Lvl 9.5 8.4-10.2 mg/dL Performed By: #### FERR, CBC , BMP, ADIFF, GFR, ANEU, FE, MG #### [address] [address] FERR Collected: 1:19 PM Status: F Source: [facility] [place] [facility] [place] RESULT OUT OF RANGE REFERENCE UNITS LAB FERR(LOINC) Ferritin 25.0 8.0-252.0 ng/mL Performed By: #### FERR, CBC , BMP, ADIFF, GFR, ANEU, FE, MG #### [address] [address] MG Collected: 11/19/2024 1:19 PM Status: F Source: [facility] TYPE CODE TESTS RESULT OUT OF RANGE REFERENCE UNITS LAB MG(LOINC) Magnesium Lvl 2.5 High 1.8-2.4 mg/dL Performed By: #### FERR, CBC , BMP, ADIFF, GFR, ANEU, FE, MG #### [address] [place], [place] [address] .GFR Collected: 11/19/2024 1:19 PM Status: F Source: [facility] TYPE CODE TESTS RESULT OUT OF RANGE REFERENCE UNITS LAB eGFR(LOINC) Estimated Glomerular Filtration Rate 26 ml/min/1. 73sqm Result Comment: Stages of Chronic Kidney Disease (CKD) Stage Description eGFR(ml/min/1.73 sq.m.) CKD 1 Normal kidney function or >=90 normal kindney function with possible kidney damage (ex. Proteinuria) CKD 2 Kidney damage with mild loss 60-89 of kidney function CKD 3a Mild to moderate loss of kidney 45-59 function CKD 3b Moderate to severe loss of 30-44 of kindey function CKD 4 Severe loss of kidney function 15-29 CKD 5 Kidney failure <15 Note: (go live 2024) the eGFR calculation was updated to the 2020 CKD-EPI creatinine equation without a race factor to calculate the eGFR results. Performed By: #### FERR, CBC , BMP, ADIFF, GFR, ANEU, FE, MG #### [address] [place], [place] [address] FE Collected: 1:19 PM Status: F Source: [facility] TYPE CODE TESTS RESULT OUT OF RANGE REFERENCE UNITS LAB FE(LOINC) Iron 53 50-170 mcg/dL Performed By: #### FERR, CBC , BMP, ADIFF, GFR, ANEU, FE, MG #### [address] [place], [place] [address] XR CHEST 2 VIEWS Observed: 11/14/2024 3:00 PM Status: F Source: [facility] ORIGINAL EXAMINATION: TWO XRAY VIEWS OF THE CHEST11/14/2024 3:05 pm COMPARISON: 12/16/2017 HISTORY: ORDERING SYSTEM PROVIDED HISTORY: Reason for Exam: short of breath, eval for fluid, pneumonia, COPD flare etc FINDINGS: Cardiomegaly. TAVR. Atherosclerosis noted of the larger vessels. There is no pulmonary consolidation. No pneumothorax or pleural effusion. Degenerative changes seen of the spine. Partially visualized posterior fusion hardware seen in the lumbar region. IMPRESSION: No acute radiographic findings. Interpreted by: Christoph Rodriguez MD Preliminary Report By: Christoph Rodriguez MD Electronically signed By Christoph Rodriguez MD Dictated Date: 11/14/2024 3:13:10 PM Prelim Date: 11/14/2024 3:14:21 PM Sign Date: 11/14/2024 3:14:21 PM Ordering Provider: MARIVEL TREVIÑO CBC Collected: 2:52 PM Status: F Source: [facility] TYPE CODE TESTS RESULT OUT OF RANGE REFERENCE UNITS LAB WBC(LOINC) WBC 8.0 4.5-10.8 10 3/mcL LAB RBCCT(LOINC) RBC 3.37 Low 4.10-5.30 10 6/mcL LAB HGB(LOINC) Hgb 9.7 Low 12.0-16.0 G/dL LAB HCT(LOINC) Hct 29.0 Low 34.0-46.0 % LAB MCV(LOINC) MCV 86.1 80.0-99.0 fL LAB MCH(LOINC) MCH 28.9 27.0-33.0 pg LAB MCHC(LOINC) MCHC 33.5 32.0-36.0 G/dL LAB RDW(LOINC) RDW 14.1 11.5-15.5 % LAB PLT(LOINC) Platelet 291 150-450 10 3/mcL LAB MPV(LOINC) MPV 8.5 6.6-10.5 fL Performed By: #### PBNP, VID H, FES, MG, GFR, ANEU, FT4, ADIFF, CBC, TSHR, CMP, FERR #### [facility] [address] [place] [address] #### PRALB, B12 #### [address] [address] .AUTO DIFF Collected: 11/14/2024 2:52 PM Status: F Source: [facility] TYPE CODE TESTS RESULT OUT OF RANGE REFERENCE UNITS LAB ELEANOR(LOINC) Neutrophil % 71.0 50.0-75.0 % LAB LYM(LOINC) Lymphocyte % 17.8 Low 20.0-40.0 % LAB MON(LOINC) Monocyte % 9.5 2.0-13.0 % LAB EO(LOINC) Eosinophil % 1.3 0.0-6.0 % LAB BAS(LOINC) Basophil % 0.4 0.0-2.5 % LAB ABLYM(LOINC) Lymphocyte, Absolute 1.4 0.9-4.3 10 3/mcL LAB ELOISE(LOINC) Monocyte, Absolute 0.8 0.1-1.4 10 3/mcL LAB AEOS(LOINC) Eosinophil, Absolute 0.1 0.0-0.7 10 3/mcL LAB ABAS(LOINC) Basophil, Absolute 0.0 0.0-0.3 10 3/mcL Performed By: #### PBNP, VID H, FES, MG, GFR, ANEU, FT4, ADIFF, CBC, TSHR, CMP, FERR #### [place] [address] #### PRALB, B12 #### [place] [address] .NEUABS Collected: 5 2:52 PM Status: F Source: [facility] TYPE CODE TESTS RESULT OUT OF RANGE REFERENCE UNITS LAB ANEU(LOINC) Neutrophil, Absolute 5.7 2.3-8.1 10 3/mcL Performed By: #### PBNP, VID H, FES, MG, GFR, ANEU, FT4, ADIFF, CBC, TSHR, CMP, FERR #### [place] [address] #### PRALB, B12 #### [place] [address] FERR Collected: 5 2:52 PM Status: F Source: [facility] TYPE CODE TESTS RESULT OUT OF RANGE REFERENCE UNITS LAB FERR(LOINC) Ferritin 29.0 8.0-252.0 ng/mL Performed By: #### PBNP, VID H, FES, MG, GFR, ANEU, FT4, ADIFF, CBC, TSHR, CMP, FERR #### [place] [id number] #### PRALB, B12 #### [address] [address] MG Collected: 11/14/2024 2:52 PM Status: F Source: [facility] TYPE CODE TESTS RESULT OUT OF RANGE REFERENCE UNITS LAB MG(LOINC) Magnesium Lvl 2.6 High 1.8-2.4 mg/dL Performed By: #### PBNP, VID H, FES, MG, GFR, ANEU, FT4, ADIFF, CBC, TSHR, CMP, FERR #### [address] [address] #### PRALB, B12 #### [address] [address] CMP Collected: 11/14/2024 2:52 PM Status: F Source: [facility] TYPE CODE TESTS RESULT OUT OF RANGE REFERENCE UNITS LAB GLU(LOINC) Glucose Level 136 High 83-110 mg/dL LAB NA(LOINC) Sodium Level 138 136-145 mmol/L LAB K(LOINC) Potassium Level 4.7 3.5-5.1 mmol/L LAB CL(LOINC) Chloride 99 98-107 mmol/L LAB CO2(LOINC) CO2 30 23-31 mmol/L LAB EBAL(LOINC) Electrolyte Balance 9.0 4.0-15.0 mEq/L LAB BUN(LOINC) BUN 61 High 7-18 mg/dL LAB CRE(LOINC) Creatinine Lvl (s) 1.92 High 0.51-0.95 mg/dL LAB BC(LOINC) BUN/Creatinine Ratio 32 High 7-27 ratio LAB CA(LOINC) Calcium Lvl 9.2 8.4-10.2 mg/dL LAB PROT(LOINC) Total Protein 7.5 6.4-8.2 G/dL LAB ALB(LOINC) Albumin Level 3.1 Low 3.4-4.8 G/dL LAB GLB(LOINC) Globulin 4.4 2.7-4.4 G/dL LAB AG(LOINC) A/G Ratio 0.7 Low 1.1-2.5 ratio LAB BILT(LOINC) Bili Total 0.3 0.2-1.0 mg/dL Result Comment: Use of this assay is not recommended for patients undergoing treatment with eltrombopag due to the potential for falsely elevated results. LAB AP(LOINC) Alk Phos 103 40-135 U/L LAB AST(LOINC) AST/SGOT 14 10-40 U/L LAB ALT(LOINC) ALT/SGPT 14 14-59 U/L Performed By: #### PBNP, VID H, FES, MG, GFR, ANEU, FT4, ADIFF, CBC, TSHR, CMP, FERR #### [place] [address] #### PRALB, B12 #### [place] [address] PBNP Collected: 11/14/2024 2:52 PM Status: F Source: [facility] TYPE CODE TESTS RESULT OUT OF RANGE REFERENCE UNITS LAB PBNP(LOINC) N-Terminal proBNP 1273 High 0-450 pg/mL Result Comment: NT-proBNP re sults of less than 300 pg/mL effectively rules out acute congestive heart failure with 99% negative predictive value. Performed By: #### PBNP, VID H, FES, MG, GFR, ANEU, FT4, ADIFF, CBC, TSHR, CMP, FERR #### [address] [address] #### PRALB, B12 #### [place] [address] TSHR Collected: 2:52 PM Status: F Source: [facility] TYPE CODE TESTS RESULT OUT OF RANGE REFERENCE UNITS LAB TSH(LOINC) TSH 4.98 High 0.36-3.74 mcIU/mL Performed By: #### PBNP, VID H, FES, MG, GFR, ANEU, FT4, ADIFF, CBC, TSHR, CMP, FERR #### [address] [address] #### PRALB, B12 #### [place] [address] .GFR Collected: 11/14/2024 2:52 PM Status: F Source: [facility] TYPE CODE TESTS RESULT OUT OF RANGE REFERENCE UNITS LAB eGFR(LOINC) Estimated Glomerular Filtration Rate 27 ml/min/1. 73sqm Result Comment: Stages of Chronic Kidney Disease (CKD) Stage Description eGFR(ml/min/1.73 sq.m.) CKD 1 Normal kidney function or >=90 normal kindney function with possible kidney damage (ex. Proteinuria) CKD 2 Kidney damage with mild loss 60-89 of kidney function CKD 3a Mild to moderate loss of kidney 45-59 function CKD 3b Moderate to severe loss of 30-44 of kindey function CKD 4 Severe loss of kidney function 15-29 CKD 5 Kidney failure <15 Note: (go live 2024) the eGFR calculation was updated to the 2020 CKD-EPI creatinine equation without a race factor to calculate the eGFR results. Performed By: #### PBNP, VID H, FES, MG, GFR, ANEU, FT4, ADIFF, CBC, TSHR, CMP, FERR #### [address] [address] #### PRALB, B12 #### [place] [address] FT4 Collected: 5 2:52 PM Status: F Source: [facility] Order Comment: Ordered by Yas goins TYPE CODE TESTS RESULT OUT OF RANGE REFERENCE UNITS LAB FT4(LOINC) Free T4 1.16 0.76-1.46 ng/dL Performed By: #### PBNP, VID H, FES, MG, GFR, ANEU, FT4, ADIFF, CBC, TSHR, CMP, FERR #### [address] [address] #### PRALB, B12 #### [place] [address] FES Collected: 2:52 PM Status: F Source: [facility] TYPE CODE TESTS RESULT OUT OF RANGE REFERENCE UNITS LAB FE(LOINC) Iron 42 Low 50-170 mcg/dL LAB IBC(LOINC) TIBC 280 250-450 mcg/dL LAB FESAT(LOINC) Iron Sat 15 % Performed By: #### PBNP, VID H, FES, MG, GFR, ANEU, FT4, ADIFF, CBC, TSHR, CMP, FERR #### [address] [address] #### PRALB, B12 #### [address] [address] VIDH Collected: 2:52 PM Status: F Source: [facility] TYPE CODE TESTS RESULT OUT OF RANGE REFERENCE UNITS LAB VIDH(LOINC) Vit. D 25-Hydroxy 34.7 ng/mL Result Comment: Interpretive Values Based on Total 25(OH) Vitamin D: Deficient <20 ng/mL Insufficient 20 - <30 ng/mL Sufficient 30-100 ng/mL Performed By: #### PBNP, VID H, FES, MG, GFR, ANEU, FT4, ADIFF, CBC, TSHR, CMP, FERR #### [address] [id number] #### PRALB, B12 #### [address] [address] B12 Collected: 11/14/2024 2:52 PM Status: F Source: [facility] TYPE CODE TESTS RESULT OUT OF RANGE REFERENCE UNITS LAB B12(LOINC) Vitamin B12 Lvl 459 211-911 pg/mL Performed By: #### PBNP, VID H, FES, MG, GFR, ANEU, FT4, ADIFF, CBC, TSHR, CMP, FERR #### [address] [address] #### PRALB, B12 #### [address] [address] PRALB Collected: 2:52 PM Status: F Source: [facility] TYPE CODE TESTS RESULT OUT OF RANGE REFERENCE UNITS LAB PRALB(LOINC) Prealbumin 24.3 10.0-40.0 mg/dL Performed By: #### PBNP, VID H, FES, MG, GFR, ANEU, FT4, ADIFF, CBC, TSHR, CMP, FERR #### [address] [address] #### PRALB, B12 #### [facility] [address] [place] [id number] BMP Collected: 11/03/2024 3:42 PM Status: F Source: [facility] TYPE CODE TESTS RESULT OUT OF RANGE REFERENCE UNITS LAB GLU(LOINC) Glucose Level 131 High 83-110 mg/dL LAB NA(LOINC) Sodium Level 140 136-145 mmol/L LAB K(LOINC) Potassium Level 5.1 3.5-5.1 mmol/L LAB CL(LOINC) Chloride 103 98-107 mmol/L LAB CO2(LOINC) CO2 31 23-31 mmol/L LAB EBAL(LOINC) Electrolyte Balance 6.0 4.0-15.0 mEq/L LAB BUN(LOINC) BUN 50 High 7-18 mg/dL LAB CRE(LOINC) Creatinine Lvl (s) 1.54 High 0.51-0.95 mg/dL LAB BC(LOINC) BUN/Creatinine Ratio 32 High 7-27 ratio LAB CA(LOINC) Calcium Lvl 9.1 8.4-10.2 mg/dL Performed By: #### BMP, GFR #### [address] [address] .GFR Collected: 11/03/2024 3:42 PM Status: F Source: [facility] TYPE CODE TESTS RESULT OUT OF RANGE REFERENCE UNITS LAB eGFR(LOINC) Estimated Glomerular Filtration Rate 35 ml/min/1. 73sqm Result Comment: Stages of Chronic Kidney Disease (CKD) Stage Description eGFR(ml/min/1.73 sq.m.) CKD 1 Normal kidney function or >=90 normal kindney function with possible kidney damage (ex. Proteinuria) CKD 2 Kidney damage with mild loss 60-89 of kidney function CKD 3a Mild to moderate loss of kidney 45-59 function CKD 3b Moderate to severe loss of 30-44 of kindey function CKD 4 Severe loss of kidney function 15-29 CKD 5 Kidney failure <15 Note: (go live 2024) the eGFR calculation was updated to the 2020 CKD-EPI creatinine equation without a race factor to calculate the eGFR results. Performed By: #### BMP, GFR #### [address] [address] BMP Collected: 09/23/2024 1:34 PM Status: F Source: [facility] TYPE CODE TESTS RESULT OUT OF RANGE REFERENCE UNITS LAB GLU(LOINC) Glucose Level 141 High 83-110 mg/dL LAB NA(LOINC) Sodium Level 142 136-145 mmol/L LAB K(LOINC) Potassium Level 4.9 3.5-5.1 mmol/L LAB CL(LOINC) Chloride 104 98-107 mmol/L LAB CO2(LOINC) CO2 31 23-31 mmol/L LAB EBAL(LOINC) Electrolyte Balance 7.0 4.0-15.0 mEq/L LAB BUN(LOINC) BUN 34 High 7-18 mg/dL LAB CRE(LOINC) Creatinine Lvl (s) 1.48 High 0.51-0.95 mg/dL LAB BC(LOINC) BUN/Creatinine Ratio 23 7-27 ratio LAB CA(LOINC) Calcium Lvl 9.0 8.4-10.2 mg/dL Performed By: #### GFR, BMP #### [address] [address] .GFR Collected: 09/23/2024 1:34 PM Status: F Source: [facility] TYPE CODE TESTS RESULT OUT OF RANGE REFERENCE UNITS LAB eGFR(LOINC) Estimated Glomerular Filtration Rate 36 ml/min/1. 73sqm Result Comment: Stages of Chronic Kidney Disease (CKD) Stage Description eGFR(ml/min/1.73 sq.m.) CKD 1 Normal kidney function or >=90 normal kindney function with possible kidney damage (ex. Proteinuria) CKD 2 Kidney damage with mild loss 60-89 of kidney function CKD 3a Mild to moderate loss of kidney 45-59 function CKD 3b Moderate to severe loss of 30-44 of kindey function CKD 4 Severe loss of kidney function 15-29 CKD 5 Kidney failure <15 Note: (go live 2024) the eGFR calculation was updated to the 2020 CKD-EPI creatinine equation without a race factor to calculate the eGFR results. Performed By: #### GFR, BMP #### [address] [address] MALBR Collected: 07/21/2024 3:48 PM Status: F Source: [facility] TYPE CODE TESTS RESULT OUT OF RANGE REFERENCE UNITS LAB CRU(LOINC) U Creatinine 104.0 mg/dL LAB MRUR(LOINC) U Microalb 97.1 mg/L LAB RMAL(LOINC) U Ratio Alb/Cre 93 High 0-30 mg/G Performed By: #### KATY ### # [address] [place], [place] [address] CMP Collected: 07/21/2024 3:31 PM Status: F Source: [facility] TYPE CODE TESTS RESULT OUT OF RANGE REFERENCE UNITS LAB GLU(LOINC) Glucose Level 124 High 83-110 mg/dL LAB NA(LOINC) Sodium Level 139 136-145 mmol/L LAB K(LOINC) Potassium Level 4.6 3.5-5.1 mmol/L LAB CL(LOINC) Chloride 102 98-107 mmol/L LAB CO2(LOINC) CO2 30 23-31 mmol/L LAB EBAL(LOINC) Electrolyte Balance 7.0 4.0-15.0 mEq/L LAB BUN(LOINC) BUN 51 High 7-18 mg/dL LAB CRE(LOINC) Creatinine Lvl (s) 1.67 High 0.55-1.02 mg/dL Result Comment: Testing perf ormed on Siemens Dimension EXL analyzer using a modified kinetic Belinda technique. LAB BC(LOINC) BUN/Creatinine Ratio 31 High 7-27 ratio LAB CA(LOINC) Calcium Lvl 9.6 8.4-10.2 mg/dL LAB PROT(LOINC) Total Protein 7.8 6.4-8.2 G/dL LAB ALB(LOINC) Albumin Level 3.6 3.4-4.8 G/dL LAB GLB(LOINC) Globulin 4.2 High 1.5-3.8 G/dL LAB AG(LOINC) A/G Ratio 0.9 Low 1.1-2.5 ratio LAB BILT(LOINC) Bili Total 0.4 0.2-1.0 mg/dL Result Comment: Use of this assay is not recommended for patients undergoing treatment with eltrombopag due to the potential for falsely elevated results. LAB AP(LOINC) Alk Phos 96 40-135 U/L LAB AST(LOINC) AST/SGOT 15 10-40 U/L LAB ALT(LOINC) ALT/SGPT 15 14-59 U/L Performed By: #### LIPID, A1 C, GFR, CMP #### [address] [address] .GFR Collected: 07/21/2024 3:31 PM Status: F Source: [facility] TYPE CODE TESTS RESULT OUT OF RANGE REFERENCE UNITS LAB eGFR(LOINC) Estimated Glomerular Filtration Rate 32 ml/min/1. 73sqm Result Comment: Stages of Chronic Kidney Disease (CKD) Stage Description eGFR(ml/min/1.73 sq.m.) CKD 1 Normal kidney function or >=90 normal kindney function with possible kidney damage (ex. Proteinuria) CKD 2 Kidney damage with mild loss 60-89 of kidney function CKD 3a Mild to moderate loss of kidney 45-59 function CKD 3b Moderate to severe loss of 30-44 of kindey function CKD 4 Severe loss of kidney function 15-29 CKD 5 Kidney failure <15 Note: (go live 2024) the eGFR calculation was updated to the 2020 CKD-EPI creatinine equation without a race factor to calculate the eGFR results. Performed By: #### LIPID, A1 C, GFR, CMP #### [address] [address] LIPID Collected: 07/21/2024 3:31 PM Status: F Source: [facility] TYPE CODE TESTS RESULT OUT OF RANGE REFERENCE UNITS LAB CHOL(LOINC) Cholesterol 166 0-200 mg/dL Result Comment: Cholesterol Reference Interval: Less than 200 Desirable 200-239 Borderline high risk 240 and above High risk LAB TRIG(LOINC) Triglycerides 72 0-150 mg/dL Result Comment: Triglyceride Reference Interval: Less than 150 Normal 150-199 Borderline high risk 200-499 High risk 500 or higher Very high risk LAB HD(LOINC) HDL Cholesterol 70 High 40-60 mg/dL LAB LDL(LOINC) LDL Cholesterol 82 0-130 mg/dL Performed By: #### LIPID, A1 C, GFR, CMP #### [address] [place], [place] [address] A1C Collected: 3:31 PM Status: F Source: [facility] TYPE CODE TESTS RESULT OUT OF RANGE REFERENCE UNITS LAB A1C(LOINC) Hgb A1c 5.7 4.3-6.4 % LAB eAG(LOINC) Est Avg Glucose 117 mg/dL Result Comment: Estimated Av erage Glucose calculated by equation ((28.7xA1C)- 46.7) Estimated average glucose (eAG) is a calculated value from Hemoglobin A1C and is uniforms sales representative of the average blood glucose level in the last 2-3 month period. Normal range: less than 114 mg/dL Performed By: #### LIPID, A1 C, GFR, CMP #### [address] [place], [place] [address] ALLERGIES No Allergies Records Found ENCOUNTERS ADMIT/DISCHARGE ACCOUNT NUMBER ADMITTING ENCOUNTER CLASS LOC ATION SOURCE 12/24/2024 [id number] [facility]24/ 5 [id number] [facility] 12/04/2024/ 5 [id number] [facility] 11/19/2024/ 5 [id number] [facility] 11/14/2024/ 5 [id number] [facility] 11/03/2024/ 5 [id number] [facility] 09/23/2024/ 5 [id number] [facility] 07/21/2024/ 5 [id number] [facility] PAYERS ENCOUNTER GUARANTOR PAYER SUBSCRIBER SOURCE 12/24/2024 MAINE TALBOT: [id number] [place] [address]~[email or web address] el: (HP) Primary Insurance:MEDICARE PART B INSCOPolicy Number: [id number] Date:2456-23-25Lntt Name:[facility] ADMINISTRATORS [facility] [address]QAGL[place]PAN, [place] [address]KP: MAINE Lala LEWISOB: [id number] [place] [address]Mbc: (HP) (WP) [facility] 12/24/2024 Secondary Insurance:[facility] INSCOPolicy Number: [id number] Date:3713-52-21Izpp Name:[address] [address]GN: MAINE VEGAMANDOB: [id number] [place] [address]Xqe: (HP) (WP) [facility] 12/17/2024 MAINE VEGAMANDOB: [place] [address]~[email or web address] el: (HP) Primary Insurance:MEDICARE PART B INSCOPolicy Number: [id number] Date:4323-77-40Dlth Name:[facility] ADMINISTRATORS [address] [address], [place] [address]CR: MAINE VEGAHENRY FOR[facility]OTTAGE HOSPITALOB: [id number] [place] [address]Ggq: (HP) (WP) [facility] 12/17/2024 Secondary Insurance:[facility] HOSPITALolicy Number: [id number] Date:6875-84-29Ghfi Name:[facility] [place] [address] [place] [address]I: MAINE Lala GARYMANDOB: [id number] [place] [address]Lar: (HP) (WP) [facility] 12/04/2024 MAINECHRIS VEGAMANDOB: [place] [address]~[email or web address] el: (HP) Primary Insurance:MEDICARE PART B INSCOPolicy Number: [id number] Date:7139-06-35Ztvr Name:[facility] ADMINISTRATORS [facility] [address]DSWWRBGC[place]UR[place], [place] [address]CA: MAINECHRIS VEGAMANDOB: [id number] [place] [address]Ckq: (HP) (WP) [facility] 12/04/2024 Secondary Insurance:[facility] Number: [id number] Date:8370-05-94Xobw Name:[facility] [address] [place] [address]SU: MAINECHRIS VEGAMANDOB: [id number] [place] [address]Kmo: (HP) (WP) [facility] 11/19/2024 MAINECHRIS VEGAMANDOB: [place] [address]~[email or web address] el: (HP) Primary Insurance:MEDICARE PART B INSCOPolicy Number: [id number] Date:7137-77-04Gwuv Name:[facility] ADMINISTRATORS [facility] [address] [address]LQBNBBZ, [place] [address]WH: MAINECHRIS VEGAMANDOB: [id number] [place] [address]Lkf: (HP) (WP) [facility] 11/19/2024 Secondary Insurance:[facility] Number: [id number] Date:1567-73-25Tytp Name:[address] [address]GQ: MAINE SAUCEDOOB: [id number] [place] [address]Mzb: (HP) (WP) [facility] 11/14/2024 MAINECHRIS SAUCEDOOB: [place] [address]~[email or web address] el: (HP) Primary Insurance:MEDICARE PART B INSCOPolicy Number: [id number] Date:3731-98-49Vbhm Name:[facility] ADMINISTRATORS [address] [address]TX: MAINE Spike VEGAMANDOB: [id number] [place] [address]Apa: (HP) (WP) [facility] 11/14/2024 Secondary Insurance:[facility] INSSt[facility] Albans Hospitaly Number: [id number] Date:5087-83-44Wppw Name:[address] [address]TP: MAINE SAUCEDOOB: [id number] [place] [address]Frk: (HP) (WP) [facility] 11/03/2024 MAINECHRIS VEGAMANDOB: [place] [address]~[email or web address] el: (HP) Primary Insurance:MEDICARE PART B INSCOPolicy Number: [id number] Date:3487-75-43Wrfl Name:[facility] ADMINISTRATORS [address] [address], [place] [address]ET: MAINEMack VEGAMANDOB: [id number] [place] [address]Sde: (HP) (WP) [facility] 11/03/2024 Secondary Insurance:[facility] INSCOPolicy Number: [id number] Date:7844-22-24Ahby Name:[address] [address]YL: MAINE Spike VEGAMANDOB: [id number] [place] [address]Tgu: (HP) (WP) [facility] 09/23/2024 MAINE VEGAMANDOB: [place] [address]~[email or web address] el: (HP) Primary Insurance:MEDICARE PART B INSCOPolicy Number: [id number] Date:7581-03-36Etty Name:[facility] ADMINISTRATORS [address] [address], [place] [address]ZF: MAINEMack VEGAMANDOB: [id number] [place] [address]Mub: (HP) (WP) [facility] 09/23/2024 Secondary Insurance:[facility] INSCOPolicy Number: [id number] Date:8850-63-21Syqw Name:[address] [address]ET: MAINE VEGAMANDOB: [id number] [place] [address]Wea: (HP) (WP) [facility] 07/21/2024 MAINE SAUCEDOOB: [id number] [place] [address]~[email or web address] [facility] Health Center el: (HP) Primary Insurance:MEDICARE PART B INSCOPolicy Number: [id number] Date:7213-55-37Oofc Name:[facility] [address] [place] [address]JQ: MAINE VEGAMANDOB: [id number] [place] [address]Kwg: (HP) (WP) [facility] 07/21/2024 Secondary Insurance:[facility] INSCOPolicy Number: [id number] Date:2300-28-04Bgdl Name:[address], [place] [address]IM: MAINE VEGAMANDOB: [id number] [place] [address]Yvx: (HP) (WP) [facility]
[2025-01-12 13:43] LABS: Creatinine, Urine (random) 46.10 mg/dL (28.00-217.00); Protein, Urine (Random) 7.3 mg/dL (0.0-12.0); Protein:Creat Ratio 158 mg/g CRE (0-200)
[2025-01-12 14:10] LABS: Albumin, Serum 3.9 g/dL (3.4-4.8); Anion Gap 12 (5-15); BUN 40 mg/dL (4-19); BUN/Creat Ratio 25.6 RATIO (10-20); Calcium,Total 9.1 mg/dL (7.6-11.0); Carbon Dioxide 26.4 mmol/L (21.0-32.0); Chloride 101 mmol/L (98-108); Glucose 133 mg/dL (70-99); Potassium 4.5 mmol/L (3.3-5.1)
== END | disposition home or self-care (01) ==
LOC: LAB 12:16
PROVIDERS: Referring Provider Internal Medicine Nephrology; Visit Provider Internal Medicine Nephrology
DX: N18.4 Chronic kidney disease, stage 4 (severe) (principal)
CPT/HCPCS: 36415; 80069; 82570; 84156

== ENCOUNTER → 2025-02-10 | Outpatient (CLI) | payer MEDICARE, OTHER, SELFPAY ==
--- NOTE | 2025-02-10 13:03 | ECHOD_ITS ---
Reason For Study : AORTIC VALVE REPLACEMENT Procedure This was a 2D Doppler, Color Flow transthoracic echocardiogram. The study was technically difficult. Contrast injection was performed. Exam performed in department. Left Ventricle Normal LV size. Moderate concentric left ventricular hypertrophy. The left ventricular ejection fraction is 65 %. Stage 1 diastolic dysfunction. Right Ventricle Normal right ventricle. Atria The left atrium is severely enlarged. Normal right atrium. Mitral Valve Severe mitral valve annular calcification versus mitral annuloplasty ring. Moderate mitral valve stenosis with mean peak gradient 7.9 mmHg which is up from 3.5 mmHg from the study in 2022. Mild mitral valve regurgitation. Tricuspid Valve Trivial tricuspid valve insufficiency. Unable to estimate RV systolic pressure due to insufficient tricuspid regurgitant envelope. Aortic Valve Stable appearing bioprosthetic aortic valve. Mean peak gradient 12 mmHg. Pulmonic Valve The pulmonic valve is not well visualized. Great Vessels Normal sized aortic root. Pericardium/Pleural No pericardial effusion. Medication 22 gauge I.V. with prn adaptor inserted into left arm. Diluted definity 1.5ml given slow IV push to enhance endocardial definition. MMode/2D Measurements & Calculations LVIDd: 4.9 cm IVSd: 1.5 cm LVOT diam: 2.0 cm LVIDs: 3.0 cm LVPWd: 1.4 cm RVDd: 4.0 cm FS: 38.6 % LVOT area: 3.3 cm2 LA dimension: 5.4 cm asc Aorta Diam: 3.4 cm LAV(MOD- bp): 57.8 ml LAV(MOD- bp) Indexed: 28.8 ml/m2 LAV(MOD- sp2): 48.2 ml LAV(MOD- sp4): 65.3 ml SV(MOD- sp4): 68.4 ml LVAd ap4: 37.6 cm2 LVAd ap2: 38.0 cm2 LVLd ap4: 9.5 cm LVLd ap2: 8.7 cm SI(MOD- sp4): 34.0 ml/m2 EDV(MOD-sp4): 120.2 ml EDV(MOD-sp2): 133.2 ml EDV(sp4-el): 126.3 ml EDV(sp2-el): 139.9 ml LVAs ap4: 22.8 cm2 LVAs ap2: 25.6 cm2 LVLs ap4: 8.0 cm LVLs ap2: 7.5 cm ESV(MOD-sp4): 51.8 ml ESV(MOD-sp2): 68.9 ml ESV(sp4-el): 54.9 ml ESV(sp2-el): 73.6 ml EF(MOD-sp4): 56.9 % EF(MOD-sp2): 48.3 % EF(sp4-el): 56.6 % SV(MOD-sp2): 64.3 ml SV(sp4-el): 71.4 ml Ao sinus diam: 3.0 cm SI(MOD-sp2): 32.0 ml/m2 LA dimension(2D): 5.4 cm LA A4 area: 22.5 cm2 RA A4 area: 11.8 cm2 TAPSE: 1.6 cm Time Measurements MV dec time: 0.37 sec Doppler Measurements & Calculations MV E max parminder: 150.4 cm/sec Lat Peak E' Parminder: 8.6 cm/sec Med Peak E' Parminder: 6.6 cm/sec MV A max parminder: 156.8 cm/sec E/E' lat: 17.6 E/E' med: 22.7 MV E/A: 0.96 MV V2 max: 188.6 cm/sec MV dec slope: 402.5 cm/sec2 Ao V2 max: 221.9 cm/sec MV max P.2 mmHg Ao max P.8 mmHg MV V2 mean: 137.0 cm/sec Ao V2 mean: 167.9 cm/sec MV mean P.9 mmHg Ao mean P.2 mmHg MV V2 VTI: 49.3 cm Ao V2 VTI: 52.9 cm MVA(VTI): 2.1 cm2 AV (velocity ratio): 0.59 SONALI(I,D): 1.9 cm2 SONALI(V,D): 1.9 cm2 LV V1 max: 129.5 cm/sec SV(LVOT): 102.8 ml PA V2 max: 87.8 cm/sec LV V1 max P.7 mmHg LV V1 mean P.6 mmHg LV V1 mean: 90.4 cm/sec LV V1 VTI: 31.2 cm ECHO/Echo Complete W/ Contrast Interpretation Summary Moderate concentric left ventricular hypertrophy. The left ventricular ejection fraction is 65 %. Apical hypokinesis. Stage 1 diastolic dysfunction. The left atrium is severely enlarged. Severe mitral valve annular calcification versus mitral annuloplasty ring. Mode rate mitral valve stenosis with mean peak gradient 7.9 mmHg which is up from 3.5 mmHg from the study in 2022. Mild mitral valve regurgitation. Stable appearing bioprosthetic aortic valve. Mean peak gradient 12 mmHg. Ordering Physician: Ashley Bahena Referring Physician: Ashley Bahena Performed By: Maida Jose RDCS
== END | disposition home or self-care (01) ==
LOC: CVS 13:03
PROVIDERS: Referring Provider Nurse Practitioner Family; Visit Provider Nurse Practitioner Family
DX: I25.10 Atherosclerotic heart disease of native coronary artery without angina pectoris (principal); I10 Essential (primary) hypertension; I73.9 Peripheral vascular disease, unspecified
CPT/HCPCS: 93306; Q9957; A4216; C8929